=== PATIENT | female | born 1935 | race Caucasian/White ===

== ENCOUNTER 2021-05-16 14:42 | Emergency (ER) | payer MEDICARE, SELFPAY ==
[2021-05-16 15:05] VITALS: BP 174/78; PULSE 94; RESP 16; TEMP 36.9; O2SAT 96; BMI 21.2
--- NOTE | 2021-05-16 15:08 | DI.RAD.S_ITS ---
PROCEDURE: XR CHEST 1V INDICATIONS: suspected sepsis TECHNIQUE: One view of the chest was acquired. COMPARISON: None. FINDINGS: Surgical changes and devices: None. Lungs and pleura: Lungs are clear. No pleural effusions or pneumothorax. Mediastinum: Mediastinal contours appear normal. Heart size is normal. Bones and chest wall: No suspicious bony lesions. Overlying soft tissues appear unremarkable. IMPRESSION: No evidence acute pulmonary process. Dictated by: Jose Daniel Pham M.D. on 05/16/2021 at 15:31 Approved by: Jose Daniel Pham M.D. on 05/16/2021 at 15:32
[2021-05-16 16:05] LABS: Add Manual Diff / Slide Review NO; Basophils Absolute Auto 100 /uL (0-100); Basophils Percent Auto 0.9 % (0-2); Eosinophils Absolute Auto 200 /uL (0-450); Eosinophils Percent Auto 2.2 % (2-4); Hematocrit 41.1 % (36-46); Hemoglobin 13.4 g/dL (12.0-16.0); Lymphocytes Absolute Auto 2300 /uL (1100-4500); Lymphocytes Percent Auto 21.2 % (25-40); Mean Corpuscular HGB Conc 32.7 % (30-36); Mean Corpuscular Hemoglobin 29.7 PG (26-34); Mean Corpuscular Volume 90.7 fL (80-100); Monocytes Absolute Auto 1200 /uL (0-900); Monocytes Percent Auto 10.9 % (3-14); Neutrophils Absolute Auto 7100 /uL (1500-7000); Neutrophils Percent Auto 64.8 % (50-75); Platelet Count 349 X10^3/uL (150-400); Red Blood Cell Count 4.53 X10^6/uL (4.0-5.2); Red Cell Distribution Width 14.8 % (11.6-14.8); White Blood Cell Count 10.9 X10^3/uL (4.5-11.0)
--- NOTE | 2021-05-16 16:05 | ED_ITS ---
HPI - Psych <KARSON Oswald - Last Filed: 05/16/21 16:05> General Chief Complaint: Psychiatric Symptoms Stated Complaint: Concerns of Infection, Hallucinations Time Seen by Provider: 05/16/21 16:04 Source: patient and family Mode of arrival: Ambulatory Related Data Previous Rx's Medication Instructions Recorded nitrofurantoin macrocrystal 100 mg 100 mg PO BID 7 Days #14 cap 05/16/21 capsule Allergies Allergy/AdvReac Type Severity Reaction Status Date / Time Sulfa (Sulfonamide Allergy Mild RASH Unverified 11/04/17 12:22 Antibiotics) [SULFA (SULFONAMIDE ANTIBIOTICS)] Patient History <KARSON Oswald - Last Filed: 05/16/21 16:05> Social History Smoking Status: Never smoker Smoking Status: Never smoker alcohol intake frequency: 0-2 drinks per day Substance Use Type: does not use Exam <KARSON Oswald - Last Filed: 05/16/21 16:05> Initial Vital Signs Initial Vital Signs: Vital Signs Temperature 98.4 F 05/16/21 15:05 Pulse Rate 94 H 05/16/21 15:05 Respiratory Rate 16 05/16/21 15:05 Blood Pressure 174/78 H 05/16/21 15:05 Pulse Oximetry 96 05/16/21 15:05 <Fabian Munoz PA-C - Last Filed: 05/16/21 17:48> Initial Vital Signs Initial Vital Signs: Vital Signs Temperature 98.4 F 05/16/21 15:05 Pulse Rate 94 H 05/16/21 15:05 Respiratory Rate 16 05/16/21 15:05 Blood Pressure 174/78 H 05/16/21 15:05 Pulse Oximetry 96 05/16/21 15:05 Course <KARSON Oswald - Last Filed: 05/16/21 16:05> Orders Ordered: ED Orders 05/16/21 15:08 XR chest 1V Stat EKG-12 Lead Stat RT Consult Eval and Treat Now 05/16/21 15:50 Complete Blood Count AUTO DIFF Stat Comprehensive Metabolic Panel Stat Lactate (Lactic Acid) Stat Lipase Stat Partial Thromboplastin Time Stat Procalcitonin Stat Prothrombin Time INR Stat 05/16/21 16:20 Blood Culture Stat 05/16/21 16:40 Urinalysis and Microscopic Stat Urine Culture Stat Discontinued Medications Sodium Chloride (Normal Saline 0.9%) 1,000 mls @ 1,000 mls/hr IV BOLUS ONE Stop: 05/16/21 16:07 Last Admin: 05/16/21 16:14 Dose: 1,000 mls/hr Documented by: ATAYLOR Vital Signs Vital signs: Vital Signs - 8 hr 05/16/21 15:05 Temperature 98.4 F Pulse Rate 94 H Respiratory Rate 16 Blood Pressure 174/78 H Pulse Oximetry 96 <Fabian Munoz PA-C - Last Filed: 05/16/21 17:48> Orders Ordered: ED Orders 05/16/21 15:08 XR chest 1V Stat EKG-12 Lead Stat RT Consult Eval and Treat Now 05/16/21 15:50 Complete Blood Count AUTO DIFF Stat Comprehensive Metabolic Panel Stat Lactate (Lactic Acid) Stat Lipase Stat Partial Thromboplastin Time Stat Procalcitonin Stat Prothrombin Time INR Stat 05/16/21 16:20 Blood Culture Stat 05/16/21 16:40 Urinalysis and Microscopic Stat Urine Culture Stat Discontinued Medications Sodium Chloride (Normal Saline 0.9%) 1,000 mls @ 1,000 mls/hr IV BOLUS ONE Stop: 05/16/21 16:07 Last Admin: 05/16/21 16:14 Dose: 1,000 mls/hr Documented by: ATAYLOR Vital Signs Vital signs: Vital Signs - 8 hr 05/16/21 15:05 Temperature 98.4 F Pulse Rate 94 H Respiratory Rate 16 Blood Pressure 174/78 H Pulse Oximetry 96 [facility] - Psych <KARSON Oswald - Last Filed: 05/16/21 16:05> Lab Data Result diagrams: 05/16/21 15:50 05/16/21 15:50 Labs: Lab Results 05/16/21 05/16/21 05/16/21 Range/Units 15:50 15:50 15:50 WBC 10.9 (4.5-11.0) X10^3/uL RBC 4.53 (4.0-5.2) X10^6/uL Hgb 13.4 (12.0-16.0) g/dL Hct 41.1 (36-46) % MCV 90.7 (80-100) fL MCH 29.7 (26-34) PG MCHC 32.7 (30-36) % RDW 14.8 (11.6-14.8) % Plt Count 349 (150-400) X10^3/uL Neut % (Auto) 64.8 (50-75) % Lymph % (Auto) 21.2 L (25-40) % [place] % (Auto) 10.9 (3-14) % Eos % (Auto) 2.2 (2-4) % Baso % (Auto) 0.9 (0-2) % Neut # (Auto) 7100 H (0005-4514) /uL Lymph # (Auto) 2300 (8282-6078) /uL [place] # (Auto) 1200 H (0-900) /uL Eos # (Auto) 200 (0-450) /uL Baso # (Auto) 100 (0-100) /uL PT (10.1-12.7) SECONDS INR (0.9-1.3) APTT (26.4-36.2) SECONDS Sodium 138 (137-145) mmol/L Potassium 4.5 (3.4-5.1) mmol/L Chloride 105 (98-107) mmol/L Carbon Dioxide 23 (22-32) mmol/L BUN 14 (7-17) mg/dL Creatinine 0.91 (0.52-1.04) mg/dL Estimated GFR 58.8 L (>60) mL/min BUN/Creatinine Ratio 15.4 (6-22) Glucose 84 (80-110) mg/dL Lactate 0.9 (0.7-2.1) mmol/L Calcium 9.4 (8.4-10.2) mg/dL Total Bilirubin 0.3 (0.2-1.3) mg/dL AST 39 H (14-36) IU/L ALT 28 (<35) IU/L Alkaline Phosphatase 96 (38-126) U/L Total Protein 7.7 (6.3-8.2) g/dL Albumin 4.2 (3.5-5.0) g/dL Globulin 3.5 (1.7-4.1) g/dL Albumin/Globulin Ratio 1.2 (1.0-2.8) Lipase 193 (23-300) U/L Procalcitonin 0.06 (<0.5) ng/mL Urine Color Urine Appearance Urine pH (4.5-8.0) Ur Specific [place] (1.000-1.035) Urine Protein (Negative) Urine Glucose (UA) (Negative) g/dL Urine Ketones (NEGATIVE) Urine Occult Blood (Negative) Urine Nitrate (Negative) Urine Bilirubin (NEGATIVE) Urine Urobilinogen (0.2) E.U./dL Ur Leukocyte Esterase (NEGATIVE) Urine RBC (0-5/HPF) Urine WBC (0-5/HPF) Urine Bacteria (None) Ur Culture Indicated? 05/16/21 05/16/21 Range/Units 15:50 16:40 WBC (4.5-11.0) X10^3/uL RBC (4.0-5.2) X10^6/uL Hgb (12.0-16.0) g/dL Hct (36-46) % MCV (80-100) fL MCH (26-34) PG MCHC (30-36) % RDW (11.6-14.8) % Plt Count (150-400) X10^3/uL Neut % (Auto) (50-75) % Lymph % (Auto) (25-40) % [place] % (Auto) (3-14) % Eos % (Auto) (2-4) % Baso % (Auto) (0-2) % Neut # (Auto) (4365-3593) /uL Lymph # (Auto) (2890-2403) /uL [place] # (Auto) (0-900) /uL Eos # (Auto) (0-450) /uL Baso # (Auto) (0-100) /uL PT 10.8 (10.1-12.7) SECONDS INR 1.0 (0.9-1.3) APTT 30 (26.4-36.2) SECONDS Sodium (137-145) mmol/L Potassium (3.4-5.1) mmol/L Chloride (98-107) mmol/L Carbon Dioxide (22-32) mmol/L BUN (7-17) mg/dL Creatinine (0.52-1.04) mg/dL Estimated GFR (>60) mL/min BUN/Creatinine Ratio (6-22) Glucose (80-110) mg/dL Lactate (0.7-2.1) mmol/L Calcium (8.4-10.2) mg/dL Total Bilirubin (0.2-1.3) mg/dL AST (14-36) IU/L ALT (<35) IU/L Alkaline Phosphatase (38-126) U/L Total Protein (6.3-8.2) g/dL Albumin (3.5-5.0) g/dL Globulin (1.7-4.1) g/dL Albumin/Globulin Ratio (1.0-2.8) Lipase (23-300) U/L Procalcitonin (<0.5) ng/mL Urine Color Yellow Urine Appearance Clear Urine pH 6.0 (4.5-8.0) Ur Specific [place] <=1.005 (1.000-1.035) Urine Protein Negative (Negative) Urine Glucose (UA) Negative (Negative) g/dL Urine Ketones Negative (NEGATIVE) Urine Occult Blood Negative (Negative) Urine Nitrate Negative (Negative) Urine Bilirubin Negative (NEGATIVE) Urine Urobilinogen 0.2 (0.2) E.U./dL Ur Leukocyte Esterase 1+ H (NEGATIVE) Urine RBC 0-1/hpf (0-5/HPF) Urine WBC 5-10/hpf H (0-5/HPF) Urine Bacteria Moderate (10-30) H (None) Ur Culture Indicated? Specimen cultured <Fabian Munoz PA-C - Last Filed: 05/16/21 17:48> Lab Data Labs: Lab Results 05/16/21 05/16/21 05/16/21 Range/Units 15:50 15:50 15:50 WBC 10.9 (4.5-11.0) X10^3/uL RBC 4.53 (4.0-5.2) X10^6/uL Hgb 13.4 (12.0-16.0) g/dL Hct 41.1 (36-46) % MCV 90.7 (80-100) fL MCH 29.7 (26-34) PG MCHC 32.7 (30-36) % RDW 14.8 (11.6-14.8) % Plt Count 349 (150-400) X10^3/uL Neut % (Auto) 64.8 (50-75) % Lymph % (Auto) 21.2 L (25-40) % [place] % (Auto) 10.9 (3-14) % Eos % (Auto) 2.2 (2-4) % Baso % (Auto) 0.9 (0-2) % Neut # (Auto) 7100 H (4441-1948) /uL Lymph # (Auto) 2300 (6730-9430) /uL [place] # (Auto) 1200 H (0-900) /uL Eos # (Auto) 200 (0-450) /uL Baso # (Auto) 100 (0-100) /uL PT (10.1-12.7) SECONDS INR (0.9-1.3) APTT (26.4-36.2) SECONDS Sodium 138 (137-145) mmol/L Potassium 4.5 (3.4-5.1) mmol/L Chloride 105 (98-107) mmol/L Carbon Dioxide 23 (22-32) mmol/L BUN 14 (7-17) mg/dL Creatinine 0.91 (0.52-1.04) mg/dL Estimated GFR 58.8 L (>60) mL/min BUN/Creatinine Ratio 15.4 (6-22) Glucose 84 (80-110) mg/dL Lactate 0.9 (0.7-2.1) mmol/L Calcium 9.4 (8.4-10.2) mg/dL Total Bilirubin 0.3 (0.2-1.3) mg/dL AST 39 H (14-36) IU/L ALT 28 (<35) IU/L Alkaline Phosphatase 96 (38-126) U/L Total Protein 7.7 (6.3-8.2) g/dL Albumin 4.2 (3.5-5.0) g/dL Globulin 3.5 (1.7-4.1) g/dL Albumin/Globulin Ratio 1.2 (1.0-2.8) Lipase 193 (23-300) U/L Procalcitonin 0.06 (<0.5) ng/mL Urine Color Urine Appearance Urine pH (4.5-8.0) Ur Specific [place] (1.000-1.035) Urine Protein (Negative) Urine Glucose (UA) (Negative) g/dL Urine Ketones (NEGATIVE) Urine Occult Blood (Negative) Urine Nitrate (Negative) Urine Bilirubin (NEGATIVE) Urine Urobilinogen (0.2) E.U./dL Ur Leukocyte Esterase (NEGATIVE) Urine RBC (0-5/HPF) Urine WBC (0-5/HPF) Urine Bacteria (None) Ur Culture Indicated? 05/16/21 05/16/21 Range/Units 15:50 16:40 WBC (4.5-11.0) X10^3/uL RBC (4.0-5.2) X10^6/uL Hgb (12.0-16.0) g/dL Hct (36-46) % MCV (80-100) fL MCH (26-34) PG MCHC (30-36) % RDW (11.6-14.8) % Plt Count (150-400) X10^3/uL Neut % (Auto) (50-75) % Lymph % (Auto) (25-40) % [place] % (Auto) (3-14) % Eos % (Auto) (2-4) % Baso % (Auto) (0-2) % Neut # (Auto) (0265-9040) /uL Lymph # (Auto) (5242-3118) /uL [place] # (Auto) (0-900) /uL Eos # (Auto) (0-450) /uL Baso # (Auto) (0-100) /uL PT 10.8 (10.1-12.7) SECONDS INR 1.0 (0.9-1.3) APTT 30 (26.4-36.2) SECONDS Sodium (137-145) mmol/L Potassium (3.4-5.1) mmol/L Chloride (98-107) mmol/L Carbon Dioxide (22-32) mmol/L BUN (7-17) mg/dL Creatinine (0.52-1.04) mg/dL Estimated GFR (>60) mL/min BUN/Creatinine Ratio (6-22) Glucose (80-110) mg/dL Lactate (0.7-2.1) mmol/L Calcium (8.4-10.2) mg/dL Total Bilirubin (0.2-1.3) mg/dL AST (14-36) IU/L ALT (<35) IU/L Alkaline Phosphatase (38-126) U/L Total Protein (6.3-8.2) g/dL Albumin (3.5-5.0) g/dL Globulin (1.7-4.1) g/dL Albumin/Globulin Ratio (1.0-2.8) Lipase (23-300) U/L Procalcitonin (<0.5) ng/mL Urine Color Yellow Urine Appearance Clear Urine pH 6.0 (4.5-8.0) Ur Specific [place] <=1.005 (1.000-1.035) Urine Protein Negative (Negative) Urine Glucose (UA) Negative (Negative) g/dL Urine Ketones Negative (NEGATIVE) Urine Occult Blood Negative (Negative) Urine Nitrate Negative (Negative) Urine Bilirubin Negative (NEGATIVE) Urine Urobilinogen 0.2 (0.2) E.U./dL Ur Leukocyte Esterase 1+ H (NEGATIVE) Urine RBC 0-1/hpf (0-5/HPF) Urine WBC 5-10/hpf H (0-5/HPF) Urine Bacteria Moderate (10-30) H (None) Ur Culture Indicated? Specimen cultured Discharge Plan Departure Patient Disposition: Home Clinical Impression: Acute UTI Instructions: DI for Urinary Tract Infection (UTI) Prescriptions: New nitrofurantoin macrocrystal 100 mg capsule 100 mg PO BID 7 Days Qty: 14 RF: 0 Referrals: Marcial Arellano DO [Primary Care Provider] -
[2021-05-16 16:08] LABS: Prothrombin Time 10.8 SECONDS (10.1-12.7)
[2021-05-16 16:10] LABS: PTT Partial Thromboplastin Tim 30 SECONDS (26.4-36.2)
[2021-05-16 16:11] LABS: Lactate (Lactic Acid) 0.9 mmol/L (0.7-2.1)
[2021-05-16] MEDS: SODIUM CHLORIDE 0.9% 1,000 ML 1000 ML IV (16:14)
[2021-05-16 16:16] LABS: Alanine Aminotransferase 28 IU/L (<35); Albumin 4.2 g/dL (3.5-5.0); Albumin Globulin Ratio 1.2 (1.0-2.8); Alkaline Phosphatase 96 U/L (38-126); Aspartate Aminotransferase 39 IU/L (14-36); BUN Creatinine Ratio 15.4 (6-22); Bilirubin Total 0.3 mg/dL (0.2-1.3); Blood Urea Nitrogen 14 mg/dL (7-17); Calcium 9.4 mg/dL (8.4-10.2); Carbon Dioxide 23 mmol/L (22-32); Chloride 105 mmol/L (98-107); Estimated Glomerular Filt Rate 58.8 mL/min (>60); Globulin 3.5 g/dL (1.7-4.1); Glucose 84 mg/dL (80-110); HEMOLYSIS < 15 (0-50); Lipase 193 U/L (23-300); Potassium 4.5 mmol/L (3.4-5.1); Sodium 138 mmol/L (137-145); Total Protein 7.7 g/dL (6.3-8.2)
[2021-05-16 16:33] LABS: Procalcitonin 0.06 ng/mL (<0.5)
[2021-05-16 16:54] LABS: Appearance Urine UA CLEAR; Bilirubin Urine UA NEGATIVE (NEGATIVE); Color Urine UA YELLOW; Glucose Urine UA NEGATIVE (Negative); Ketones Urine UA NEGATIVE (NEGATIVE); Leukocyte Esterase Urine UA 1+ (NEGATIVE); Nitrite Urine UA NEGATIVE (Negative); Occult Blood Urine UA NEGATIVE (Negative); Protein Urine UA NEGATIVE (Negative); Specific Gravity Urine UA <=1.005 (1.000-1.035); Urobilinogen Urine UA 0.2 E.U./dL (0.2)
--- NOTE | 2021-05-16 17:07 | ED.PSYCH ---
HPI - Psych <Fabian Munoz PA-C - Last Filed: 05/16/21 17:58> General Chief Complaint: Psychiatric Symptoms Stated Complaint: Concerns of Infection, Hallucinations Time Seen by Provider: 05/16/21 16:04 Source: patient and family Mode of arrival: Ambulatory History of Present Illness HPI Narrative: Patient presents today with her grandson for evaluation of 2 days of visual hallucinations. Patient states that at night she has seen people in her bedroom and she also notes that she has seen other things in her room a such flags. Her grandson notes that the patient was seen on 05/10 for changes in mentation. However, lab work drawn during that time returned benign with no signs of infection. Patient has denied any associated signs or symptoms, including fever, chills, nausea, vomiting, diarrhea, abdominal pain, dysuria, or auditory hallucinations. Patient denies beginning any new medications recently. No other concerns noted at this time. Related Data Previous Rx's Medication Instructions Recorded nitrofurantoin macrocrystal 100 mg 100 mg PO BID 7 Days #14 cap 05/16/21 capsule Allergies Allergy/AdvReac Type Severity Reaction Status Date / Time Sulfa (Sulfonamide Allergy Mild RASH Unverified 11/04/17 12:22 Antibiotics) [SULFA (SULFONAMIDE ANTIBIOTICS)] Review of Systems <Fabian Munoz PA-C - Last Filed: 05/16/21 17:58> Constitutional Constitutional: Denies chills, Denies fatigue, Denies fever(s), Denies lethargy and Denies weakness Cardiovascular Cardiovascular: Denies chest pain, Denies irregular heart rhythm, Denies lightheadedness, Denies palpitations, Denies dyspnea, Denies dyspnea on exertion and Denies orthopnea Respiratory Respiratory: Denies cough, Denies dyspnea, Denies dyspnea on exertion and Denies wheezing Gastrointestinal Gastrointestinal: Denies abdominal pain, Denies change in bowel habits, Denies diarrhea, Denies nausea and Denies vomiting Neurologic Neurologic: Reports behavioral changes and Denies weakness Psychiatric Psychiatric: Denies anxiety, Reports behavioral changes, Denies depression, Denies homicidal ideation and Denies suicidal ideation Endocrine Endocrine: Denies fatigue, Denies flushing and Denies palpitations Allergic/Immunologic Allergic/Immunologic: Denies wheezing Patient History <Fabian Munoz PA-C - Last Filed: 05/16/21 17:58> Social History Smoking Status: Never smoker Smoking Status: Never smoker alcohol intake frequency: 0-2 drinks per day Substance Use Type: does not use Exam <Fabian Munoz PA-C - Last Filed: 05/16/21 17:58> Narrative Exam Narrative: GENERAL: 85 year old patient appears stated age. Well-developed patient, in mild distress. HEAD: Atraumatic. Normocephalic. EYES: Pupils equal round and reactive. Extraocular motions intact. No scleral icterus. No injection or drainage. ENT: Nose without bleeding, purulent drainage. Throat without erythema, tonsillar hypertrophy or exudate. Airway patent. NECK: Trachea midline. Non tender CARDIOVASCULAR: Regular rate and rhythm without murmurs, gallops, or rubs. RESPIRATORY: Clear to auscultation. Breath sounds equal bilaterally. No wheezes, rales, or rhonchi. GASTROINTESTINAL: Abdomen soft, non-tender, nondistended. EXTREMITIES: No edema or joint tenderness. Superficial skin abrasion noted on the lateral aspect of the left arm with surrounding erythema, no streaking. BACK: Nontender without deformity or crepitance. No flank tenderness. NEURO: AOx3. SKIN: No rash or erythema of visible areas Initial Vital Signs Initial Vital Signs: Vital Signs Temperature 98.4 F 05/16/21 15:05 Pulse Rate 94 H 05/16/21 15:05 Respiratory Rate 16 05/16/21 15:05 Blood Pressure 174/78 H 05/16/21 15:05 Pulse Oximetry 96 05/16/21 15:05 <Marcial Trent MD - Last Filed: 05/21/21 22:39> Initial Vital Signs Initial Vital Signs: Vital Signs Temperature 98.4 F 05/16/21 15:05 Pulse Rate 94 H 05/16/21 15:05 Respiratory Rate 16 05/16/21 15:05 Blood Pressure 174/78 H 05/16/21 15:05 Pulse Oximetry 96 05/16/21 15:05 Course <Fabian Munoz PA-C - Last Filed: 05/16/21 17:58> Course Course Narrative: Patient presents today with her grandson for evaluation of 2 days of visual hallucination. CBC, procalcitonin, Chem 7, urinalysis, chest x-ray, ECG, lipase, lactate tingling, PT/PTT have been ordered. Orders Ordered: Discontinued Medications Sodium Chloride (Normal Saline 0.9%) 1,000 mls @ 1,000 mls/hr IV BOLUS ONE Stop: 05/16/21 16:07 Last Infusion: 05/16/21 17:37 Dose: 0 mls/hr Documented by: Admin: 05/16/21 16:14 Dose: 1,000 mls/hr Documented by: MATIASYLOR Nitrofurantoin Macrocrystals (Nitrofurantoin Er 100 Mg Capsule) 100 mg PO NOW ONE Stop: 05/16/21 17:49 Last Admin: 05/16/21 17:55 Dose: 100 mg Documented by: NEHEMIAH Vital Signs Vital signs: Vital Signs - 8 hr 05/16/21 15:05 Temperature 98.4 F Pulse Rate 94 H Respiratory Rate 16 Blood Pressure 174/78 H Pulse Oximetry 96 <Marcial Trent MD - Last Filed: 05/21/21 22:39> Orders Ordered: Discontinued Medications Sodium Chloride (Normal Saline 0.9%) 1,000 mls @ 1,000 mls/hr IV BOLUS ONE Stop: 05/16/21 16:07 Last Infusion: 05/16/21 17:37 Dose: 0 mls/hr Documented by: Admin: 05/16/21 16:14 Dose: 1,000 mls/hr Documented by: NEHEMIAH Nitrofurantoin Macrocrystals (Nitrofurantoin Er 100 Mg Capsule) 100 mg PO NOW ONE Stop: 05/16/21 17:49 Last Admin: 05/16/21 17:55 Dose: 100 mg Documented by: NEHEMIAH Vital Signs Vital signs: Vital Signs - 8 hr 05/16/21 15:05 Temperature 98.4 F Pulse Rate 94 H Respiratory Rate 16 Blood Pressure 174/78 H Pulse Oximetry 96 MDM - Psych <Fabian Munoz PA-C - Last Filed: 05/16/21 17:58> Lab Data Result diagrams: 05/16/21 15:50 05/16/21 15:50 Labs: Lab Results 05/16/21 05/16/21 05/16/21 Range/Units 15:50 15:50 15:50 WBC 10.9 (4.5-11.0) X10^3/uL RBC 4.53 (4.0-5.2) X10^6/uL Hgb 13.4 (12.0-16.0) g/dL Hct 41.1 (36-46) % MCV 90.7 (80-100) fL MCH 29.7 (26-34) PG MCHC 32.7 (30-36) % RDW 14.8 (11.6-14.8) % Plt Count 349 (150-400) X10^3/uL Neut % (Auto) 64.8 (50-75) % Lymph % (Auto) 21.2 L (25-40) % [place] % (Auto) 10.9 (3-14) % Eos % (Auto) 2.2 (2-4) % Baso % (Auto) 0.9 (0-2) % Neut # (Auto) 7100 H (0620-2384) /uL Lymph # (Auto) 2300 (6716-0284) /uL [place] # (Auto) 1200 H (0-900) /uL Eos # (Auto) 200 (0-450) /uL Baso # (Auto) 100 (0-100) /uL PT (10.1-12.7) SECONDS INR (0.9-1.3) APTT (26.4-36.2) SECONDS Sodium 138 (137-145) mmol/L Potassium 4.5 (3.4-5.1) mmol/L Chloride 105 (98-107) mmol/L Carbon Dioxide 23 (22-32) mmol/L BUN 14 (7-17) mg/dL Creatinine 0.91 (0.52-1.04) mg/dL Estimated GFR 58.8 L (>60) mL/min BUN/Creatinine Ratio 15.4 (6-22) Glucose 84 (80-110) mg/dL Lactate 0.9 (0.7-2.1) mmol/L Calcium 9.4 (8.4-10.2) mg/dL Total Bilirubin 0.3 (0.2-1.3) mg/dL AST 39 H (14-36) IU/L ALT 28 (<35) IU/L Alkaline Phosphatase 96 (38-126) U/L Total Protein 7.7 (6.3-8.2) g/dL Albumin 4.2 (3.5-5.0) g/dL Globulin 3.5 (1.7-4.1) g/dL Albumin/Globulin Ratio 1.2 (1.0-2.8) Lipase 193 (23-300) U/L Procalcitonin 0.06 (<0.5) ng/mL Urine Color Urine Appearance Urine pH (4.5-8.0) Ur Specific [place] (1.000-1.035) Urine Protein (Negative) Urine Glucose (UA) (Negative) g/dL Urine Ketones (NEGATIVE) Urine Occult Blood (Negative) Urine Nitrate (Negative) Urine Bilirubin (NEGATIVE) Urine Urobilinogen (0.2) E.U./dL Ur Leukocyte Esterase (NEGATIVE) Urine RBC (0-5/HPF) Urine WBC (0-5/HPF) Urine Bacteria (None) Ur Culture Indicated? 05/16/21 05/16/21 Range/Units 15:50 16:40 WBC (4.5-11.0) X10^3/uL RBC (4.0-5.2) X10^6/uL Hgb (12.0-16.0) g/dL Hct (36-46) % MCV (80-100) fL MCH (26-34) PG MCHC (30-36) % RDW (11.6-14.8) % Plt Count (150-400) X10^3/uL Neut % (Auto) (50-75) % Lymph % (Auto) (25-40) % [place] % (Auto) (3-14) % Eos % (Auto) (2-4) % Baso % (Auto) (0-2) % Neut # (Auto) (7799-9065) /uL Lymph # (Auto) (4084-3780) /uL [place] # (Auto) (0-900) /uL Eos # (Auto) (0-450) /uL Baso # (Auto) (0-100) /uL PT 10.8 (10.1-12.7) SECONDS INR 1.0 (0.9-1.3) APTT 30 (26.4-36.2) SECONDS Sodium (137-145) mmol/L Potassium (3.4-5.1) mmol/L Chloride (98-107) mmol/L Carbon Dioxide (22-32) mmol/L BUN (7-17) mg/dL Creatinine (0.52-1.04) mg/dL Estimated GFR (>60) mL/min BUN/Creatinine Ratio (6-22) Glucose (80-110) mg/dL Lactate (0.7-2.1) mmol/L Calcium (8.4-10.2) mg/dL Total Bilirubin (0.2-1.3) mg/dL AST (14-36) IU/L ALT (<35) IU/L Alkaline Phosphatase (38-126) U/L Total Protein (6.3-8.2) g/dL Albumin (3.5-5.0) g/dL Globulin (1.7-4.1) g/dL Albumin/Globulin Ratio (1.0-2.8) Lipase (23-300) U/L Procalcitonin (<0.5) ng/mL Urine Color Yellow Urine Appearance Clear Urine pH 6.0 (4.5-8.0) Ur Specific [place] <=1.005 (1.000-1.035) Urine Protein Negative (Negative) Urine Glucose (UA) Negative (Negative) g/dL Urine Ketones Negative (NEGATIVE) Urine Occult Blood Negative (Negative) Urine Nitrate Negative (Negative) Urine Bilirubin Negative (NEGATIVE) Urine Urobilinogen 0.2 (0.2) E.U./dL Ur Leukocyte Esterase 1+ H (NEGATIVE) Urine RBC 0-1/hpf (0-5/HPF) Urine WBC 5-10/hpf H (0-5/HPF) Urine Bacteria Moderate (10-30) H (None) Ur Culture Indicated? Specimen cultured Imaging Data Chest x-ray: Radiologist's Impression: PROCEDURE:? XR CHEST 1V ? INDICATIONS:? suspected sepsis ? TECHNIQUE:? One view of the chest was acquired.? ? COMPARISON:? None. ? FINDINGS:? ? Surgical changes and devices:? None.? ? Lungs and pleura:? Lungs are clear.? No pleural effusions or pneumothorax.? ? Mediastinum:? Mediastinal contours appear normal.? Heart size is normal.? ? Bones and chest wall:? No suspicious bony lesions.? Overlying soft tissues appear unremarkable.? ? IMPRESSION:? No evidence acute pulmonary process. MDM Narrative Medical decision making narrative: Patient presents today with her grandson for evaluation of 2 days of visual hallucination. To consider urinary tract infection versus pneumonia versus superficial skin infection versus substance induced psychosis. Physical examination is reassuring, as the superficial skin abrasion is free of swelling and excessive warmth and her lungs are clear to auscultation bilaterally. Additionally, the patient has not taken any new medications recently which makes substance induced psychosis less likely. <Marcial Trent MD - Last Filed: 05/21/21 22:39> Lab Data Labs: Lab Results 05/16/21 05/16/21 05/16/21 Range/Units 15:50 15:50 15:50 WBC 10.9 (4.5-11.0) X10^3/uL RBC 4.53 (4.0-5.2) X10^6/uL Hgb 13.4 (12.0-16.0) g/dL Hct 41.1 (36-46) % MCV 90.7 (80-100) fL MCH 29.7 (26-34) PG MCHC 32.7 (30-36) % RDW 14.8 (11.6-14.8) % Plt Count 349 (150-400) X10^3/uL Neut % (Auto) 64.8 (50-75) % Lymph % (Auto) 21.2 L (25-40) % [place] % (Auto) 10.9 (3-14) % Eos % (Auto) 2.2 (2-4) % Baso % (Auto) 0.9 (0-2) % Neut # (Auto) 7100 H (5963-5009) /uL Lymph # (Auto) 2300 (3699-0098) /uL [place] # (Auto) 1200 H (0-900) /uL Eos # (Auto) 200 (0-450) /uL Baso # (Auto) 100 (0-100) /uL PT (10.1-12.7) SECONDS INR (0.9-1.3) APTT (26.4-36.2) SECONDS Sodium 138 (137-145) mmol/L Potassium 4.5 (3.4-5.1) mmol/L Chloride 105 (98-107) mmol/L Carbon Dioxide 23 (22-32) mmol/L BUN 14 (7-17) mg/dL Creatinine 0.91 (0.52-1.04) mg/dL Estimated GFR 58.8 L (>60) mL/min BUN/Creatinine Ratio 15.4 (6-22) Glucose 84 (80-110) mg/dL Lactate 0.9 (0.7-2.1) mmol/L Calcium 9.4 (8.4-10.2) mg/dL Total Bilirubin 0.3 (0.2-1.3) mg/dL AST 39 H (14-36) IU/L ALT 28 (<35) IU/L Alkaline Phosphatase 96 (38-126) U/L Total Protein 7.7 (6.3-8.2) g/dL Albumin 4.2 (3.5-5.0) g/dL Globulin 3.5 (1.7-4.1) g/dL Albumin/Globulin Ratio 1.2 (1.0-2.8) Lipase 193 (23-300) U/L Procalcitonin 0.06 (<0.5) ng/mL Urine Color Urine Appearance Urine pH (4.5-8.0) Ur Specific [place] (1.000-1.035) Urine Protein (Negative) Urine Glucose (UA) (Negative) g/dL Urine Ketones (NEGATIVE) Urine Occult Blood (Negative) Urine Nitrate (Negative) Urine Bilirubin (NEGATIVE) Urine Urobilinogen (0.2) E.U./dL Ur Leukocyte Esterase (NEGATIVE) Urine RBC (0-5/HPF) Urine WBC (0-5/HPF) Urine Bacteria (None) Ur Culture Indicated? 05/16/21 05/16/21 Range/Units 15:50 16:40 WBC (4.5-11.0) X10^3/uL RBC (4.0-5.2) X10^6/uL Hgb (12.0-16.0) g/dL Hct (36-46) % MCV (80-100) fL MCH (26-34) PG MCHC (30-36) % RDW (11.6-14.8) % Plt Count (150-400) X10^3/uL Neut % (Auto) (50-75) % Lymph % (Auto) (25-40) % [place] % (Auto) (3-14) % Eos % (Auto) (2-4) % Baso % (Auto) (0-2) % Neut # (Auto) (5947-1482) /uL Lymph # (Auto) (3769-2540) /uL [place] # (Auto) (0-900) /uL Eos # (Auto) (0-450) /uL Baso # (Auto) (0-100) /uL PT 10.8 (10.1-12.7) SECONDS INR 1.0 (0.9-1.3) APTT 30 (26.4-36.2) SECONDS Sodium (137-145) mmol/L Potassium (3.4-5.1) mmol/L Chloride (98-107) mmol/L Carbon Dioxide (22-32) mmol/L BUN (7-17) mg/dL Creatinine (0.52-1.04) mg/dL Estimated GFR (>60) mL/min BUN/Creatinine Ratio (6-22) Glucose (80-110) mg/dL Lactate (0.7-2.1) mmol/L Calcium (8.4-10.2) mg/dL Total Bilirubin (0.2-1.3) mg/dL AST (14-36) IU/L ALT (<35) IU/L Alkaline Phosphatase (38-126) U/L Total Protein (6.3-8.2) g/dL Albumin (3.5-5.0) g/dL Globulin (1.7-4.1) g/dL Albumin/Globulin Ratio (1.0-2.8) Lipase (23-300) U/L Procalcitonin (<0.5) ng/mL Urine Color Yellow Urine Appearance Clear Urine pH 6.0 (4.5-8.0) Ur Specific [place] <=1.005 (1.000-1.035) Urine Protein Negative (Negative) Urine Glucose (UA) Negative (Negative) g/dL Urine Ketones Negative (NEGATIVE) Urine Occult Blood Negative (Negative) Urine Nitrate Negative (Negative) Urine Bilirubin Negative (NEGATIVE) Urine Urobilinogen 0.2 (0.2) E.U./dL Ur Leukocyte Esterase 1+ H (NEGATIVE) Urine RBC 0-1/hpf (0-5/HPF) Urine WBC 5-10/hpf H (0-5/HPF) Urine Bacteria Moderate (10-30) H (None) Ur Culture Indicated? Specimen cultured Discharge Plan Departure Patient Disposition: Home Clinical Impression: Acute UTI Instructions: DI for Urinary Tract Infection (UTI) Activity Restrictions/Additional Instructions: *You have been diagnosed with an acute UTI. Prescription for nitrofurantoin has been sent to your pharmacy. Please complete the full antibiotic course. Follow up with primary care doctor within 48 hours following discharge. Please return to the emergency department if you experience increased pain with urination, fever, chills, worsening visual hallucinations. *What to do: *Please continue to take your regular medications as directed. [X] New medication prescriptions sent to your pharmacy: Nitrofurantoin - [facility] [ ] New medication written as a paper prescription [ ] No new medications given *Please follow up with your primary care provider in 2-3 days, call for an appointment. Let them know you were seen in the Emergency Department and that we ask that you be seen in follow up. We will electronically transmit a record of today's note if your PCP is in our system *If you do not have a primary care provider please contact the [facility] Resource line at [phone]. They will ask some questions about your medical history and help get you set up with a doctor in the community. *Return to Emergency Department if you should have any new, worsening or concerning symptoms, such as fever greater than 101 F, shaking chills, worsening pain, persistent vomiting or other bothersome symptoms. Prescriptions: New nitrofurantoin macrocrystal 100 mg capsule 100 mg PO BID 7 Days Qty: 14 RF: 0 Referrals: Marcial Arellano DO [Primary Care Provider] - <Marcial Trent MD - Last Filed: 05/21/21 22:39> [facility]ign [facility] Attestation: I was immediately available in the department for consultation. This documentation has been reviewed and I agree with assessment and plan. Supervised by Marcial Trent MD
[2021-05-16 17:17] LABS: Bacteria Urine Moderate (10-30); Culture Indicated Urine Specimen Cultured; RBC Urine 0-1/HPF (0-5/HPF); WBC Urine 5-10/HPF (0-5/HPF)
[2021-05-16] MEDS: NITROFURANTOIN ER 100 MG CAPSULE PO (17:55)
[2021-05-16 18:05] VITALS: BP 199/80; PULSE 86; RESP 16; O2SAT 99
== END 2021-05-16 18:08 | disposition home or self-care (01) ==
PROVIDERS: Emergency Medicine; Nurse Practitioner Critical Care Medicine; Emergency Provider Physician Assistant; Family Provider Internal Medicine; PCP Family Medicine
DX: N39.0 Urinary tract infection, site not specified (principal); R44.3 Hallucinations, unspecified; R03.0 Elevated blood-pressure reading, without diagnosis of hypertension
CPT/HCPCS: 36415; 71045; 80053; 81001; 83605; 83690; 84145; 85025; 85610; 85730; 87040; 87077; 87086; 87186; 93005; 93010; 96360; 99284; 99285

== ENCOUNTER 2022-08-18 09:44 | Inpatient (IN) | payer MEDICARE, SELFPAY ==
[2022-08-18 10:03] VITALS: BP 159/72; PULSE 104; RESP 16; TEMP 37; O2SAT 95
--- NOTE | 2022-08-18 10:05 | DI.RAD.S_ITS ---
PROCEDURE: XR CHEST 1V INDICATIONS: suspected sepsis TECHNIQUE: One view of the chest was acquired. COMPARISON: [facility], CR, XR CHEST 1V, 05/16/2021, 15:12. FINDINGS: Surgical changes and devices: None. Lungs and pleura: Lungs are clear. No pleural effusions or pneumothorax. Mediastinum: Mediastinal contours appear normal. Heart size is normal. Bones and chest wall: No suspicious bony lesions. Overlying soft tissues appear unremarkable. IMPRESSION: No evidence acute pulmonary process. Dictated by: Jose Daniel Pham M.D. on 08/18/2022 at 10:46 Approved by: Jose Daniel Pham M.D. on 08/18/2022 at 10:48
--- NOTE | 2022-08-18 10:10 | ED.AMS ---
HPI - Altered Mental Status General Chief Complaint: Altered Mental Status Stated Complaint: confusion,hallucination,T-14 Time Seen by Provider: 08/18/22 10:08 Mode of arrival: Family Vehicle History of Present Illness HPI narrative: Patient is a 87-year-old female history of CVA hypertension TIAs frequent UTIs presenting today with hallucinations. Apparently last night she saw many people in her house she called 911 no one was there. She really has no pain. She is very weak difficulty ambulating. Here now with daughter who is a nurse. Previously she had a UTI in April 2021 with similar symptoms. She denies any abdominal pain nausea vomiting chest pain cough shortness of breath. Related Data Home Medications Medication Instructions Recorded Confirmed aspirin 81 mg tablet,delayed 81 mg PO DAILY 08/18/22 08/18/22 release (Adult Low Dose Aspirin) atorvastatin 20 mg tablet 20 mg PO DAILY 08/18/22 08/18/22 cholecalciferol (vitamin D3) 10 10 mcg PO DAILY 08/18/22 08/18/22 mcg (400 unit) tablet escitalopram oxalate 10 mg tablet 10 mg PO DAILY 08/18/22 08/18/22 levothyroxine 50 mcg tablet 50 mcg PO DAILY 08/18/22 08/18/22 lisinopril 20 mg tablet 10 mg PO DAILY 08/18/22 08/18/22 temazepam 7.5 mg capsule 7.5 mg PO BEDTIME 08/18/22 08/18/22 verapamil 120 mg tablet 120 mg PO DAILY 08/18/22 08/18/22 Allergies Allergy/AdvReac Type Severity Reaction Status Date / Time Sulfa (Sulfonamide Allergy Mild RASH Verified 08/18/22 10:25 Antibiotics) [SULFA (SULFONAMIDE ANTIBIOTICS)] Review of Systems Review of Systems ROS Unobtainable: All systems reviewed & are unremarkable except as noted in HPI and below Patient History Social History household members: none Smoking Status: Former smoker alcohol intake: never Smoking Status: Never smoker alcohol intake frequency: 0-2 drinks per day Substance Use Type: does not use Exam Initial Vital Signs Initial Vital Signs: Vital Signs Temperature 98.6 F 08/18/22 10:03 Pulse Rate 104 H 08/18/22 10:03 Respiratory Rate 16 08/18/22 10:03 Blood Pressure 159/72 H 08/18/22 10:03 Pulse Oximetry 95 08/18/22 10:03 Oxygen Delivery Method 08/18/22 10:03 GENERAL: Alert week 87-year-old female actually appears younger than stated age and in no acute distress. HEENT: Head atraumatic,EOMI, pupils reactive, face symmetric, moist mucous membranes CARDIOVASCULAR: Regular rate and rhythm without murmurs, rubs or gallops. RESPIRATORY: Breath sounds equal bilaterally, no wheezes rales or rhonchi. ABDOMEN: Soft, nontender. Normoactive bowel sounds all 4 quadrants. No guarding or rebound. EXTREMITIES: Normal range of motion, no clubbing or edema. Neurovascularly intact NEUROLOGICAL: Alert and oriented x2. Bilateral lower extremity weakness sports physical therapist strength equal and strong bilaterally SKIN: Warm, dry, no laceration, no petechiae, no rashes or lesions. Course Orders Ordered: ED Orders 08/18/22 10:00 Complete Blood Count AUTO DIFF Stat Comprehensive Metabolic Panel Stat Lactate (Lactic Acid) Stat Lipase Stat Partial Thromboplastin Time Stat Procalcitonin Stat Prothrombin Time INR Stat 08/18/22 10:05 XR chest 1V Stat EKG-12 Lead Stat RT Consult Eval and Treat NOW 08/18/22 10:15 COVID19 -Nasal RAPID/Pre-Proc Stat Urinalysis and Microscopic Stat Urine Culture Stat 08/18/22 10:33 CT head/brain wo con Stat 08/18/22 11:43 Blood Culture Stat Amoxicillin/Clavulanate Potassium (Amoxicillin/Clav 500/125 Mg) 1 tab PO TID [facility] Stop: 09/02/22 08:59 Aspirin (Aspirin Ec 81 Mg Tablet) 81 mg PO DAILY [facility] Atorvastatin Calcium (Atorvastatin 20 Mg Tablet) 20 mg PO BEDTIME [facility] Escitalopram Oxalate (Escitalopram 10 Mg Tablet) 10 mg PO DAILY [facility] Ceftriaxone Sodium 1,000 mg/ (Sodium Chloride) 100 mls @ 200 mls/hr IV Q24H [facility] Stop: 08/23/22 18:00 Levothyroxine Sodium (Levothyroxine 50 Mcg Tablet) 50 mcg PO DAILY@0600 [facility] Lisinopril (Lisinopril 10 Mg Tablet) 10 mg PO DAILY [facility] Ondansetron HCl (Ondansetron 4 Mg/2 Ml Inj) 4 mg IV NOW PRN PRN Reason: Nausea And Vomiting Last Admin: 08/18/22 10:26 Dose: 4 mg Documented By: DARIEN Ondansetron HCl (Ondansetron 4 Mg Odt) 4 mg SL NOW PRN PRN Reason: Nausea And Vomiting Prednisone (Prednisone 20 Mg Tablet) 20 mg PO DAILY [facility] Stop: 08/24/22 08:59 Temazepam (Temazepam 15 Mg Capsule) 15 mg PO BEDTIME [facility] Verapamil HCl (Verapamil Sr 120 Mg Tablet) 120 mg PO DAILY [facility] Vitamin D (Cholecalciferol (Vitamin D3) 1,000 Unit Tablet) 1,000 unit PO DAILY [facility] Discontinued Medications Sodium Chloride (Normal Saline 0.9%) 1,000 mls @ 1,000 mls/hr IV BOLUS ONE Stop: 08/18/22 11:04 Last Infusion: 08/18/22 11:54 Dose: 0 mls/hr Documented By: Admin: 08/18/22 10:27 Dose: 1,000 mls/hr Documented By: DARIEN Ceftriaxone Sodium 1,000 mg/ (Sodium Chloride) 100 mls @ 200 mls/hr IV NOW ONE Stop: 08/18/22 11:30 Last Infusion: 08/18/22 12:59 Dose: 0 mls/hr Documented By: Admin: 08/18/22 12:18 Dose: 200 mls/hr Documented By: YOCASTA Ceftriaxone Sodium 1,000 mg/ (Sodium Chloride) 100 mls @ 200 mls/hr IV Q24H [facility] Vital Signs Vital signs: Vital Signs - 8 hr 08/18/22 11:44 Pulse Rate 78 Pulse Oximetry 95 MDM - Altered Mental Status Lab Data Result diagrams: 08/18/22 10:00 08/18/22 10:00 Labs: Lab Results 08/18/22 08/18/22 08/18/22 Range/Units 10:00 10:00 10:00 WBC 8.5 (4.5-11.0) X10^3/uL RBC 4.53 (4.0-5.2) X10^6/uL Hgb 13.9 (12.0-16.0) g/dL Hct 41.2 (36-46) % MCV 91.1 (80-100) fL MCH 30.6 (26-34) PG MCHC 33.6 (30-36) % RDW 14.2 (11.6-14.8) % Plt Count 278 (150-400) X10^3/uL Neut % (Auto) 73.2 (50-75) % Lymph % (Auto) 16.1 L (25-40) % [place] % (Auto) 8.4 (3-14) % Eos % (Auto) 1.5 L (2-4) % Baso % (Auto) 0.8 (0-2) % Neut # (Auto) 6200 (0158-6105) /uL Lymph # (Auto) 1400 (5398-2046) /uL [place] # (Auto) 700 (0-900) /uL Eos # (Auto) 100 (0-450) /uL Baso # (Auto) 100 (0-100) /uL PT 11.4 (10.1-12.7) SECONDS INR 1.0 (0.9-1.3) APTT 29 (26-36) SECONDS Sodium 138 (137-145) mmol/L Potassium 4.2 (3.4-5.1) mmol/L Chloride 105 (98-107) mmol/L Carbon Dioxide 21 L (22-32) mmol/L BUN 19 H (7-17) mg/dL Creatinine 0.93 (0.52-1.04) mg/dL Estimated GFR 59 L (>60) mL/min BUN/Creatinine Ratio 20.4 (6-22) Glucose 184 H (80-110) mg/dL Lactate (0.7-2.1) mmol/L Calcium 9.3 (8.4-10.2) mg/dL Total Bilirubin 0.5 (0.2-1.3) mg/dL AST 35 (14-36) IU/L ALT 29 (<35) IU/L Alkaline Phosphatase 78 (38-126) U/L Total Creatine Kinase (30-135) U/L CK-MB (CK-2) CK-MB (CK-2) Rel Index Troponin I (0.01-0.034) ng/mL Total Protein 8.0 (6.3-8.2) g/dL Albumin 4.1 (3.5-5.0) g/dL Globulin 3.9 (1.7-4.1) g/dL Albumin/Globulin Ratio 1.1 (1.0-2.8) Lipase 238 (23-300) U/L Procalcitonin 0.08 (<0.5) ng/mL Urine Color Urine Appearance Urine pH (4.5-8.0) Ur Specific [place] (1.000-1.035) Urine Protein (Negative) Urine Glucose (UA) (Negative) g/dL Urine Ketones (NEGATIVE) Urine Occult Blood (Negative) Urine Nitrate (Negative) Urine Bilirubin (NEGATIVE) Urine Urobilinogen (0.2) E.U./dL Ur Leukocyte Esterase (NEGATIVE) Urine RBC (0-5/HPF) Urine WBC (0-5/HPF) Ur Squamous Epith Cells (0-5/HPF) Urine Bacteria (None) Ur Culture Indicated? SARS-CoV-2 (PCR) (Negative) 08/18/22 08/18/22 08/18/22 Range/Units 10:00 10:05 10:15 WBC (4.5-11.0) X10^3/uL RBC (4.0-5.2) X10^6/uL Hgb (12.0-16.0) g/dL Hct (36-46) % MCV (80-100) fL MCH (26-34) PG MCHC (30-36) % RDW (11.6-14.8) % Plt Count (150-400) X10^3/uL Neut % (Auto) (50-75) % Lymph % (Auto) (25-40) % [place] % (Auto) (3-14) % Eos % (Auto) (2-4) % Baso % (Auto) (0-2) % Neut # (Auto) (2374-4318) /uL Lymph # (Auto) (6026-3577) /uL [place] # (Auto) (0-900) /uL Eos # (Auto) (0-450) /uL Baso # (Auto) (0-100) /uL PT (10.1-12.7) SECONDS INR (0.9-1.3) APTT (26-36) SECONDS Sodium (137-145) mmol/L Potassium (3.4-5.1) mmol/L Chloride (98-107) mmol/L Carbon Dioxide (22-32) mmol/L BUN (7-17) mg/dL Creatinine (0.52-1.04) mg/dL Estimated GFR (>60) mL/min BUN/Creatinine Ratio (6-22) Glucose (80-110) mg/dL Lactate 3.0 H (0.7-2.1) mmol/L Calcium (8.4-10.2) mg/dL Total Bilirubin (0.2-1.3) mg/dL AST (14-36) IU/L ALT (<35) IU/L Alkaline Phosphatase (38-126) U/L Total Creatine Kinase 70 (30-135) U/L CK-MB (CK-2) TNP CK-MB (CK-2) Rel Index TNP Troponin I < 0.012 (0.01-0.034) ng/mL Total Protein (6.3-8.2) g/dL Albumin (3.5-5.0) g/dL Globulin (1.7-4.1) g/dL Albumin/Globulin Ratio (1.0-2.8) Lipase (23-300) U/L Procalcitonin (<0.5) ng/mL Urine Color Urine Appearance Urine pH (4.5-8.0) Ur Specific [place] (1.000-1.035) Urine Protein (Negative) Urine Glucose (UA) (Negative) g/dL Urine Ketones (NEGATIVE) Urine Occult Blood (Negative) Urine Nitrate (Negative) Urine Bilirubin (NEGATIVE) Urine Urobilinogen (0.2) E.U./dL Ur Leukocyte Esterase (NEGATIVE) Urine RBC (0-5/HPF) Urine WBC (0-5/HPF) Ur Squamous Epith Cells (0-5/HPF) Urine Bacteria (None) Ur Culture Indicated? SARS-CoV-2 (PCR) Negative (Negative) 08/18/22 Range/Units 10:15 WBC (4.5-11.0) X10^3/uL RBC (4.0-5.2) X10^6/uL Hgb (12.0-16.0) g/dL Hct (36-46) % MCV (80-100) fL MCH (26-34) PG MCHC (30-36) % RDW (11.6-14.8) % Plt Count (150-400) X10^3/uL Neut % (Auto) (50-75) % Lymph % (Auto) (25-40) % [place] % (Auto) (3-14) % Eos % (Auto) (2-4) % Baso % (Auto) (0-2) % Neut # (Auto) (0766-8002) /uL Lymph # (Auto) (5193-5861) /uL [place] # (Auto) (0-900) /uL Eos # (Auto) (0-450) /uL Baso # (Auto) (0-100) /uL PT (10.1-12.7) SECONDS INR (0.9-1.3) APTT (26-36) SECONDS Sodium (137-145) mmol/L Potassium (3.4-5.1) mmol/L Chloride (98-107) mmol/L Carbon Dioxide (22-32) mmol/L BUN (7-17) mg/dL Creatinine (0.52-1.04) mg/dL Estimated GFR (>60) mL/min BUN/Creatinine Ratio (6-22) Glucose (80-110) mg/dL Lactate (0.7-2.1) mmol/L Calcium (8.4-10.2) mg/dL Total Bilirubin (0.2-1.3) mg/dL AST (14-36) IU/L ALT (<35) IU/L Alkaline Phosphatase (38-126) U/L Total Creatine Kinase (30-135) U/L CK-MB (CK-2) CK-MB (CK-2) Rel Index Troponin I (0.01-0.034) ng/mL Total Protein (6.3-8.2) g/dL Albumin (3.5-5.0) g/dL Globulin (1.7-4.1) g/dL Albumin/Globulin Ratio (1.0-2.8) Lipase (23-300) U/L Procalcitonin (<0.5) ng/mL Urine Color Lt. yellow Urine Appearance Clear Urine pH 6.0 (4.5-8.0) Ur Specific [place] 1.020 (1.000-1.035) Urine Protein Negative (Negative) Urine Glucose (UA) Negative (Negative) g/dL Urine Ketones Negative (NEGATIVE) Urine Occult Blood Negative (Negative) Urine Nitrate Negative (Negative) Urine Bilirubin Negative (NEGATIVE) Urine Urobilinogen 0.2 (0.2) E.U./dL Ur Leukocyte Esterase Trace H (NEGATIVE) Urine RBC None seen (0-5/HPF) Urine WBC 5-10/hpf H (0-5/HPF) Ur Squamous Epith Cells 1-5 /hpf (0-5/HPF) Urine Bacteria Occasional (0-1) (None) Ur Culture Indicated? Specimen cultured SARS-CoV-2 (PCR) (Negative) Imaging Data Chest x-ray: Radiologist's Impression: XRay Report Signed Patient: Cindi Estrella MR#: [id number] : 1935 Acct:[id number] Age/Sex: 87 / F Date of Service: 08/18/22 Loc: ED Accession Number: [id number] ?? Procedure: XR chest 1V Ordering Provider: Justine Culp D.O. PROCEDURE:? XR CHEST 1V ? INDICATIONS:? suspected sepsis ? TECHNIQUE:? One view of the chest was acquired.? ? COMPARISON:[facility], , XR CHEST 1V, 05/16/2021, 15:12. ? FINDINGS:? ? Surgical changes and devices:? None.? ? Lungs and pleura:? Lungs are clear.? No pleural effusions or pneumothorax.? ? Mediastinum:? Mediastinal contours appear normal.? Heart size is normal.? ? Bones and chest wall:? No suspicious bony lesions.? Overlying soft tissues appear unremarkable.? ? IMPRESSION:? No evidence acute pulmonary process. ? ? ? Dictated by: Jose Daniel Pham M.D. on 08/18/2022 at 10:46 ? ? CT scan - head: Radiologist's Impression: CT Scan Report Signed Patient: Cindi Estrella MR#: [id number] : 1935 Acct:[id number] Age/Sex: 87 / F Date of Service: 08/18/22 Loc: ED Accession Number: [id number] ?? Procedure: CT head/brain wo con Ordering Provider: Justine Culp D.O. PROCEDURE:? CT HEAD/BRAIN WO CON ? INDICATIONS:? weakness confusion ? TECHNIQUE:? Noncontrast 4.5 mm thick angled axial sections acquired from the foramen magnum to the vertex, with coronal and sagittal reformats.? For radiation dose reduction, the following was used:? automated exposure control, adjustment of mA and/or kV according to patient size.? ? COMPARISON:? None. ? FINDINGS:? Image quality:? Excellent.? ? CSF spaces:? Basal cisterns are patent.? No extra-axial fluid collections.? The ventricles are symmetric in size and shape.? ? Brain:? No intracranial bleeds or masses.? There is cerebral volume loss for age, with resultant ventricular and sulcal prominence.? There are moderate to severe? periventricular and deep white matter chronic small vessel ischemic changes.? There is intracranial internal carotid artery atherosclerosis.? ? Skull and face:? Calvarium and visualized facial bones appear intact, without suspicious lesions.? ? Sinuses:? Bilateral maxillary sinus air-fluid levels. ? IMPRESSION:? ? 1. Age-related volume loss and moderate to severe small vessel ischemic change. ? 2. No evidence of acute intracranial process. ? 3. Bilateral acute maxillary sinusitis.? ? ? Dictated by: Jose Daniel Pham M.D. on 08/18/2022 at 10:58 ? ? Approved by: Jose Daniel Pham M.D. on 08/18/2022 at 10:59 ? ECG Data Interpretation: Sinus rhythm rate 70 SC interval 180 QRS 96 QTC 446 significant artifact not agree with computer of acute STEMI. Too much artifact is present but she is not having any chest MDM Narrative Medical decision making narrative: Patient is a 87-year-old female history of frequent UTIs last 1 was a couple months ago today presenting with hallucinations. Urine does have some leukocytes. She has no leukocytosis lactate is quite elevated at 3.0 procalcitonin not significantly elevated. I suspect UTI causing her hallucinations. Head CT is negative. Vitals are stable. Dr. Day hospitalist updated patient's symptoms test results and accepts patient MDM * differential diagnosis includes but not limited to: Sepsis CVA * Prior records reviewed: As above * My lab interpretation: No leukocytosis elevated lactate 3.0 normal procalcitonin normal electrolytes * My imaging interpretation: As above * Clinical Decision Rules/Scores evaluated: No * Independent discussions with: Hospitalist Dr. Day accepts * Social Considerations: Hallucinations lives alone * Shared Decision Making: With daughter *Disposition: see below, along with detailed discharge instructions that have been reviewed with patient as well as indications for ED re-evaluation and additional outpatient follow up Discharge Plan Departure Patient Disposition: Admitted As Inpatient Clinical Impression: Acute UTI, Acute metabolic encephalopathy Admit Date/Time: 08/18/22 12:16 Admit Provider: Nallely Vasquez
--- NOTE | 2022-08-18 10:11 | PC.NURSE ---
confusion, altered mental status the last few days. History of moderate alzheimer's and has had frequent issues with UTI and dehydration. Lives alone, family trying to get her to move in with them.
[2022-08-18 10:15] LABS: Add Manual Diff / Slide Review NO; Basophils Absolute Auto 100 /uL (0-100); Basophils Percent Auto 0.8 % (0-2); Eosinophils Absolute Auto 100 /uL (0-450); Eosinophils Percent Auto 1.5 % (2-4); Hematocrit 41.2 % (36-46); Hemoglobin 13.9 g/dL (12.0-16.0); Lymphocytes Absolute Auto 1400 /uL (1100-4500); Lymphocytes Percent Auto 16.1 % (25-40); Mean Corpuscular HGB Conc 33.6 % (30-36); Mean Corpuscular Hemoglobin 30.6 PG (26-34); Mean Corpuscular Volume 91.1 fL (80-100); Monocytes Absolute Auto 700 /uL (0-900); Monocytes Percent Auto 8.4 % (3-14); Neutrophils Absolute Auto 6200 /uL (1500-7000); Neutrophils Percent Auto 73.2 % (50-75); Platelet Count 278 X10^3/uL (150-400); Red Blood Cell Count 4.53 X10^6/uL (4.0-5.2); Red Cell Distribution Width 14.2 % (11.6-14.8); White Blood Cell Count 8.5 X10^3/uL (4.5-11.0)
[2022-08-18 10:21] LABS: Prothrombin Time 11.4 SECONDS (10.1-12.7)
[2022-08-18 10:23] LABS: PTT Partial Thromboplastin Tim 29 SECONDS (26-36)
[2022-08-18] MEDS: ONDANSETRON 4 MG/2 ML INJ IV (10:26)
[2022-08-18] MEDS: SODIUM CHLORIDE 0.9% 1,000 ML 1000 ML IV (10:27)
[2022-08-18 10:33] LABS: Alanine Aminotransferase 29 IU/L (<35); Albumin 4.1 g/dL (3.5-5.0); Albumin Globulin Ratio 1.1 (1.0-2.8); Alkaline Phosphatase 78 U/L (38-126); Aspartate Aminotransferase 35 IU/L (14-36); BUN Creatinine Ratio 20.4 (6-22); Bilirubin Total 0.5 mg/dL (0.2-1.3); Blood Urea Nitrogen 19 mg/dL (7-17); Calcium 9.3 mg/dL (8.4-10.2); Carbon Dioxide 21 mmol/L (22-32); Chloride 105 mmol/L (98-107); Estimated Glomerular Filt Rate 59 mL/min (>60); Globulin 3.9 g/dL (1.7-4.1); Glucose 184 mg/dL (80-110); HEMOLYSIS < 15 (0-50); Lipase 238 U/L (23-300); Potassium 4.2 mmol/L (3.4-5.1); Sodium 138 mmol/L (137-145)
--- NOTE | 2022-08-18 10:33 | DI.CT.S_ITS ---
PROCEDURE: CT HEAD/BRAIN WO CON INDICATIONS: weakness confusion TECHNIQUE: Noncontrast 4.5 mm thick angled axial sections acquired from the foramen magnum to the vertex, with coronal and sagittal reformats. For radiation dose reduction, the following was used: automated exposure control, adjustment of mA and/or kV according to patient size. COMPARISON: None. FINDINGS: Image quality: Excellent. CSF spaces: Basal cisterns are patent. No extra-axial fluid collections. The ventricles are symmetric in size and shape. Brain: No intracranial bleeds or masses. There is cerebral volume loss for age, with resultant ventricular and sulcal prominence. There are moderate to severe periventricular and deep white matter chronic small vessel ischemic changes. There is intracranial internal carotid artery atherosclerosis. Skull and face: Calvarium and visualized facial bones appear intact, without suspicious lesions. Sinuses: Bilateral maxillary sinus air-fluid levels. IMPRESSION: 1. Age-related volume loss and moderate to severe small vessel ischemic change. 2. No evidence of acute intracranial process. 3. Bilateral acute maxillary sinusitis. Dictated by: Jose Daniel Pham M.D. on 08/18/2022 at 10:58 Approved by: Jose Daniel Pham M.D. on 08/18/2022 at 10:59
[2022-08-18 10:37] LABS: Appearance Urine UA CLEAR; Bilirubin Urine UA NEGATIVE (NEGATIVE); Color Urine UA LT. YELLOW; Glucose Urine UA NEGATIVE (Negative); Ketones Urine UA NEGATIVE (NEGATIVE); Leukocyte Esterase Urine UA TRACE (NEGATIVE); Nitrite Urine UA NEGATIVE (Negative); Occult Blood Urine UA NEGATIVE (Negative); Protein Urine UA NEGATIVE (Negative); Urobilinogen Urine UA 0.2 E.U./dL (0.2)
[2022-08-18 10:44] LABS: RBC Urine None Seen (0-5/HPF); Squamous Epithelial Cell Urine 1-5 /HPF (0-5/HPF); WBC Urine 5-10/HPF (0-5/HPF)
[2022-08-18 10:45] LABS: Bacteria Urine Occasional (0-1); Culture Indicated Urine Specimen Cultured
[2022-08-18 10:49] LABS: Procalcitonin 0.08 ng/mL (<0.5)
[2022-08-18 10:56] LABS: COVID19 -Nasal RAPID Negative (Negative)
[2022-08-18 11:44] VITALS: PULSE 78; O2SAT 95
[2022-08-18 12:09] LABS: Reflexed Lactate in 2 Hours Y
[2022-08-18] MEDS: cefTRIAXone 1,000 MG in SODIUM CHLORIDE 0.9% 100 ML 200 MG IV ×2 (12:18→18:30)
[2022-08-18 12:45] LABS: Lactate 2HR (Lactic Acid Rflx) 1.2 mmol/L (0.7-2.1)
[2022-08-18 12:52] LABS: Creatine Kinase 70 U/L (30-135)
[2022-08-18 13:05] LABS: Troponin I < 0.012 ng/mL (0.01-0.034)
[2022-08-18 13:06] VITALS: BP 143/64; PULSE 83; O2SAT 93
[2022-08-18 13:40] VITALS: BP 155/72; PULSE 84; RESP 16; TEMP 36.4; O2SAT 97
[2022-08-18 16:40] VITALS: BP 183/76; PULSE 84; RESP 16; TEMP 36; O2SAT 98
--- NOTE | 2022-08-18 17:50 | PM.HP.1 ---
History of Present Illness History of Present Illness Date Patient Seen: 08/18/22 Chief complaint: confusion,hallucination,T-14 Narrative: Patient is a 87-year-old female history of CVA hypertension TIAs frequent UTIs presented today with hallucinations.? Apparently last night she saw many people in her house she called 911 no one was there.? She really has no pain.? She is very weak difficulty ambulating.? Came in with daughter who is a nurse.? Previously she had a UTI in April 2021 with similar symptoms.? She denies any abdominal pain nausea vomiting chest pain cough shortness of breath. No wheezes. No diaphoresis. Has some confusion. CT of the head in the ER showed no intracranial acute findings but does have maxillary sinus congestion Patient History Family & Social History Social History: household members none Prior Living Arrangements Apartment/Condo Safety & Behavioral: Feels Safe in Current Yes Environment Been Physically Hurt or No Threatened By a Person Tobacco & Substance use: Smoking Status Former smoker alcohol intake never alcohol intake frequency 0-2 drinks per day Substance Use Type does not use Meds Home Medications and Allergies Home Medications Medication Instructions Recorded Confirmed Type aspirin 81 mg tablet,delayed 81 mg PO DAILY 08/18/22 08/18/22 History release (Adult Low Dose Aspirin) atorvastatin 20 mg tablet 20 mg PO DAILY 08/18/22 08/18/22 History cholecalciferol (vitamin D3) 10 10 mcg PO DAILY 08/18/22 08/18/22 History mcg (400 unit) tablet escitalopram oxalate 10 mg tablet 10 mg PO DAILY 08/18/22 08/18/22 History levothyroxine 50 mcg tablet 50 mcg PO DAILY 08/18/22 08/18/22 History lisinopril 20 mg tablet 10 mg PO DAILY 08/18/22 08/18/22 History temazepam 7.5 mg capsule 7.5 mg PO BEDTIME 08/18/22 08/18/22 History verapamil 120 mg tablet 120 mg PO DAILY 08/18/22 08/18/22 History Allergies Allergy/AdvReac Type Severity Reaction Status Date / Time Sulfa (Sulfonamide Allergy Mild RASH Verified 08/18/22 10:25 Antibiotics) [SULFA (SULFONAMIDE ANTIBIOTICS)] Review of Systems Review of Systems Narrative: 14 system review was completed and pertinent findings in history of chief complaint Exam Vital Signs (past 8 hours): - 08/18/22 10:03 08/18/22 11:44 08/18/22 13:06 Temperature 98.6 F Pulse Rate 104 H 78 Respiratory Rate 16 Blood Pressure 159/72 H 143/64 H Pulse Oximetry 95 95 Oxygen Delivery Method Room Air 08/18/22 13:06 08/18/22 13:40 08/18/22 16:40 Temperature 97.6 F 96.8 F L Pulse Rate 83 84 84 Respiratory Rate 16 16 Blood Pressure 155/72 H 183/76 H Pulse Oximetry 93 97 98 Oxygen Delivery Method Room Air Oxygen Delivery Method Room Air Narrative Exam Narrative: GENERAL:? Alert week 87-year-old female appears younger than stated age and in no acute distress. HEENT: Head atraumatic,EOMI, pupils reactive, face symmetric, moist mucous membranes CARDIOVASCULAR: Regular rate and rhythm without murmurs, rubs or gallops. RESPIRATORY: Breath sounds equal bilaterally, no wheezes rales or rhonchi. ABDOMEN: Soft, nontender.? Normoactive bowel sounds all 4 quadrants.? No guarding or rebound. EXTREMITIES: Normal range of motion, no clubbing or edema.? Neurovascularly intact NEUROLOGICAL: Alert and oriented x4.Normal gait and speech.? No bilateral lower extremity weakness, safe and vault mechanic strength equal and strong bilaterally SKIN: Warm, dry, no laceration, no petechiae, no rashes or lesions. Objective Labs Result Diagrams: 08/18/22 10:00 08/18/22 10:00 Labs: Laboratory Results - last 24 hr 08/18/22 08/18/22 08/18/22 10:00 10:00 10:00 WBC 8.5 RBC 4.53 Hgb 13.9 Hct 41.2 MCV 91.1 MCH 30.6 MCHC 33.6 RDW 14.2 Plt Count 278 Neut % (Auto) 73.2 Lymph % (Auto) 16.1 L Faulkner % (Auto) 8.4 Eos % (Auto) 1.5 L Baso % (Auto) 0.8 Neut # (Auto) 6200 Lymph # (Auto) 1400 Faulkner # (Auto) 700 Eos # (Auto) 100 Baso # (Auto) 100 PT 11.4 INR 1.0 APTT 29 Sodium 138 Potassium 4.2 Chloride 105 Carbon Dioxide 21 L BUN 19 H Creatinine 0.93 Estimated GFR 59 L BUN/Creatinine Ratio 20.4 Glucose 184 H Lactate Calcium 9.3 Total Bilirubin 0.5 AST 35 ALT 29 Alkaline Phosphatase 78 Total Creatine Kinase CK-MB (CK-2) CK-MB (CK-2) Rel Index Troponin I Total Protein 8.0 Albumin 4.1 Globulin 3.9 Albumin/Globulin Ratio 1.1 Lipase 238 Procalcitonin 0.08 Urine Color Urine Appearance Urine pH Ur Specific Lincoln Urine Protein Urine Glucose (UA) Urine Ketones Urine Occult Blood Urine Nitrate Urine Bilirubin Urine Urobilinogen Ur Leukocyte Esterase Urine RBC Urine WBC Ur Squamous Epith Cells Urine Bacteria Ur Culture Indicated? SARS-CoV-2 (PCR) 08/18/22 08/18/22 08/18/22 10:00 10:05 10:15 WBC RBC Hgb Hct MCV MCH MCHC RDW Plt Count Neut % (Auto) Lymph % (Auto) Faulkner % (Auto) Eos % (Auto) Baso % (Auto) Neut # (Auto) Lymph # (Auto) Faulkner # (Auto) Eos # (Auto) Baso # (Auto) PT INR APTT Sodium Potassium Chloride Carbon Dioxide BUN Creatinine Estimated GFR BUN/Creatinine Ratio Glucose Lactate 3.0 H Calcium Total Bilirubin AST ALT Alkaline Phosphatase Total Creatine Kinase 70 CK-MB (CK-2) TNP CK-MB (CK-2) Rel Index TNP Troponin I < 0.012 Total Protein Albumin Globulin Albumin/Globulin Ratio Lipase Procalcitonin Urine Color Urine Appearance Urine pH Ur Specific Lincoln Urine Protein Urine Glucose (UA) Urine Ketones Urine Occult Blood Urine Nitrate Urine Bilirubin Urine Urobilinogen Ur Leukocyte Esterase Urine RBC Urine WBC Ur Squamous Epith Cells Urine Bacteria Ur Culture Indicated? SARS-CoV-2 (PCR) Negative 08/18/22 08/18/22 10:15 12:26 WBC RBC Hgb Hct MCV MCH MCHC RDW Plt Count Neut % (Auto) Lymph % (Auto) Faulkner % (Auto) Eos % (Auto) Baso % (Auto) Neut # (Auto) Lymph # (Auto) Faulkner # (Auto) Eos # (Auto) Baso # (Auto) PT INR APTT Sodium Potassium Chloride Carbon Dioxide BUN Creatinine Estimated GFR BUN/Creatinine Ratio Glucose Lactate 1.2 Calcium Total Bilirubin AST ALT Alkaline Phosphatase Total Creatine Kinase CK-MB (CK-2) CK-MB (CK-2) Rel Index Troponin I Total Protein Albumin Globulin Albumin/Globulin Ratio Lipase Procalcitonin Urine Color Lt. yellow Urine Appearance Clear Urine pH 6.0 Ur Specific Lincoln 1.020 Urine Protein Negative Urine Glucose (UA) Negative Urine Ketones Negative Urine Occult Blood Negative Urine Nitrate Negative Urine Bilirubin Negative Urine Urobilinogen 0.2 Ur Leukocyte Esterase Trace H Urine RBC None seen Urine WBC 5-10/hpf H Ur Squamous Epith Cells 1-5 /hpf Urine Bacteria Occasional (0-1) Ur Culture Indicated? Specimen cultured SARS-CoV-2 (PCR) Assessment & Plan Assessment & Plan narrative: 1. Urinary tract infection with hallucinations. Treat with ceftriaxone 1 g IV every 24 hours. Follow hallucinations, determine if they resolve if persistent may need treatment. 2. Concern for sinusitis on CT of the head. Provide prednisone 20 mg daily for 5 days to help with sinus congestion. Continue treatment following the ceftriaxone treatment with Augmentin 500 mg/125 mg p.o. t.i.d. for 9 days 3. Hyperlipidemia continue atorvastatin. 4. Anxiety/depression continue escitalopram. 5. Hypothyroidism. Continue levothyroxine replacement. Measure TSH free T4 and free T3. 6. Hypertension. Continue to treat with lisinopril and verapamil. 7. Insomnia. With temazepam at night. Discussion of results, plan of care with independent HCP/other ED physician. Reviewed outside records: Prior ED records VTE Prophylaxis: Enoxaparin 40 mg subQ once daily? Bilateral SCDs Patient is admitted to the inpatient service due to the severity of disease, risks of further disease progression and this stay is expected to exceed 2 midnights. All means possible were attempted to reconcile the patient's home medication. Code status: DNR this was discussed with the patient. Surrogate decision maker:Pateint's son Laurent Estrella Time Spent With Patient Critical Care time: I spent a total of [] minutes of critical care time on this patient's care today; this time is exclusive of procedural time. Quality VTE Deep Vein Thrombosis/Pulmonary Embolism Present on Admission: No
[2022-08-18 20:15] VITALS: BP 172/72; PULSE 90; RESP 18; TEMP 36.7; O2SAT 94
[2022-08-18] MEDS: ATORVASTATIN 20 MG TABLET PO (20:54)
[2022-08-18] MEDS: TEMAZEPAM 15 MG CAPSULE PO (20:56)
--- NOTE | 2022-08-19 04:09 | PC.NURSE ---
pt b/p have been elevated with a SBP>150'S and up to 180's, no headaches or dizziness. ZAID Renae notified,
[2022-08-19 04:12] VITALS: BP 181/110; PULSE 115; RESP 18; TEMP 36.7; O2SAT 95
[2022-08-19] MEDS: VERAPAMIL 120 MG TABLET PO ×2 (04:30→08:15)
[2022-08-19] MEDS: ACETAMINOPHEN 325 MG TABLET 650 MG PO (04:57)
[2022-08-19] MEDS: LEVOTHYROXINE 50 MCG TABLET PO (06:05)
[2022-08-19 06:38] LABS: Add Manual Diff / Slide Review NO; Basophils Absolute Auto 0 /uL (0-100); Basophils Percent Auto 0.6 % (0-2); Eosinophils Absolute Auto 300 /uL (0-450); Hematocrit 39.2 % (36-46); Hemoglobin 12.9 g/dL (12.0-16.0); Lymphocytes Absolute Auto 1700 /uL (1100-4500); Lymphocytes Percent Auto 20.1 % (25-40); Mean Corpuscular HGB Conc 32.9 % (30-36); Mean Corpuscular Hemoglobin 30.2 PG (26-34); Mean Corpuscular Volume 91.6 fL (80-100); Monocytes Absolute Auto 1100 /uL (0-900); Monocytes Percent Auto 12.5 % (3-14); Neutrophils Absolute Auto 5400 /uL (1500-7000); Neutrophils Percent Auto 63.8 % (50-75); Platelet Count 258 X10^3/uL (150-400); Red Blood Cell Count 4.28 X10^6/uL (4.0-5.2); Red Cell Distribution Width 14.5 % (11.6-14.8); White Blood Cell Count 8.5 X10^3/uL (4.5-11.0)
[2022-08-19 06:45] LABS: Alanine Aminotransferase 27 IU/L (<35); Albumin 3.7 g/dL (3.5-5.0); Alkaline Phosphatase 76 U/L (38-126); Aspartate Aminotransferase 34 IU/L (14-36); BUN Creatinine Ratio 25.6 (6-22); Bilirubin Total 0.4 mg/dL (0.2-1.3); Blood Urea Nitrogen 20 mg/dL (7-17); Calcium 8.8 mg/dL (8.4-10.2); Carbon Dioxide 24 mmol/L (22-32); Chloride 105 mmol/L (98-107); Estimated Glomerular Filt Rate > 60 mL/min (>60); Globulin 3.6 g/dL (1.7-4.1); Glucose 94 mg/dL (80-110); HEMOLYSIS < 15 (0-50); Potassium 4.1 mmol/L (3.4-5.1); Sodium 137 mmol/L (137-145); Total Protein 7.3 g/dL (6.3-8.2)
[2022-08-19 07:15] LABS: Free T3, Triiodothyronine Free 3.34 pg/mL (2.77-5.27); Free T4, Direct Thyroxine 1.08 ng/dL (0.78-2.19)
[2022-08-19 07:29] LABS: Thyroid Stimulating Hormone 2.42 uIU/mL (0.47-4.68)
[2022-08-19] MEDS: ESCITALOPRAM 10 MG TABLET PO (08:14)
[2022-08-19 08:15] VITALS: BP 157/80; PULSE 81
[2022-08-19] MEDS: lisinopriL 20 MG TABLET 10 MG PO (08:15)
[2022-08-19] MEDS: CHOLECALCIFEROL (VITAMIN D3) 1,000 UNIT TABLET 1000 UNIT PO (08:16)
[2022-08-19] MEDS: predniSONE 20 MG TABLET PO (08:16)
[2022-08-19] MEDS: ASPIRIN EC 81 MG TABLET PO (08:16)
[2022-08-19 08:28] VITALS: BP 157/80; PULSE 87; RESP 16; TEMP 36.1; O2SAT 93
--- NOTE | 2022-08-19 09:21 | CM.DANOTE ---
Addendum entered by Alix Paredes R.N. 08/19/22 14:50: Patient may be discharging home tomorrow, plan is for her to switch to oral antibiotics, according to hospitalist. Addendum entered by Alix Paredes R.N. 08/19/22 14:39: Left a message with patient's son, Laurent, at his work number, home number not working. Sunitha in O.T, indicated, she did ok with therapy, but some memory issues. Was informed that patient may be staying with family members upon discharge, since she lives alone. Original Note: DCP: Case received, EMR reviewed and met with patient. Introduced self and role. Was able to obtain information regarding patient's baseline activity status prior to hospitalization, as well as her current living situation. DCP assessment completed with information currently available. Patient is an 87 year female who admitted yesterday afternoon to the care of the hospitalist team. PCP: Dr. Arellano. Payer: confirmed: Medicare/[employer]. Patient came to the hospital via private vehicle, secondary to confusion and weakness. Notes indicate that patient had hallucinations, had been seeing people in her house, called 911, no one was there. Patient also had difficulty ambulating. She was accompanied by her [id number] who is a nurse. Patient has history of frequent urinary tract infections, as well as CVA, TIA. Patient was diagnosed with Urinary Tract Infection with hallucinations, metabolic encephalopathy. She is currently on IV ABO. Met with patient in her room. She has been sitting on the edge of her bed, having her breakfast. 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 Confirmed that she resides in [place] alone, she is a . She has a son, main contact, Cheikh, he works, lives nearby, and his spouse, Lucina, is a nurse. Patient gives verbal permission to contact son with any additional questions. She also has friends, one of her friends assists patient at home, with chores, etc. She uses a four wheel walker to get around, does not drive. P: DCP to continue to follow. At this time, plan is home when stable, will see if she may benefit with home health. Alix Paredes RN/Various Exceptionalities Teacher Discharge Planning/Care Management CM Discharge Assessment Start: 08/19/22 09:17 Freq: Status: Active Protocol: Document 08/19/22 09:18 (Rec: 08/19/22 09:21 [id number]) Discharge Planning Assessment Assigned Gear Machine Operator General Alix Paredes RN/Various Exceptionalities Teacher Advance Directives? Yes Advance Directives on File Yes History Provided By Patient,Family Member,Medical Record Prior Living Arrangements Apartment/Condo Household Members none Type of transporation used prior to Relies on Others admit Comment Patient has family and friends that transport her to appointments. Independent with ADL's Yes Is patient alert and oriented? Yes Needs Assistance With Home Chores / Shopping Caregiver for Another No DME Already Rented / Owned Other Comment Patient uses four wheel walker Comment As long as mentation improves, she lives alone. Discharge Plan Home Transportation Arrangement Family or friends. Referrals Initiated Other Additional Comment May consider home health if needed, will see how she does here in the hospital. Whiteboard Updated in Patient Room with Yes name and ext. # of Gear Machine Operator General Review Status In Process Next Review Type Continued Stay Review
--- NOTE | 2022-08-19 11:55 | PT.IIE ---
Current Diagnoses Urinary tract infection, site not specified (08/18/22) Physical Therapy Inpatient Evaluation/Re-Eval M1 PT/OT-IP Prior Functional Status Start: 08/19/22 12:49 Freq: NEEDED Status: Active Protocol: Document 08/19/22 11:55 AB (Rec: 08/19/22 13:00 AB [email or web address]) Medical Review Prior Functional Status Medical History Reviewed Yes Communication able to make needs known Mobility and Gait pt stated that she is modified independent with all mobilities and ambulation without AD indoors but uses a 4WW for outdoor mobility; stated that she is unable to walk far due to easily gets tired and balance issues Social History Household Members none Living Arrangements Apartment/Condo Number of Floors (Floors) One Floor Number of Stairs To Enter/Railing? no steps to enter Home Environment High Toilet,Tub/Shower Home Equipment Four Wheel Walker,Shower Seat with Backrest,Grab Bars In Shower Additional Social History Comment pt's [id number]-ide will be able to assist pt : lives ~ 5 miles away from pt M2 PT-IP Current Condition Start: 08/19/22 12:49 Freq: NEEDED Status: Active Protocol: Document 08/19/22 11:55 AB (Rec: 08/19/22 13:00 AB [email or web address]) Physical Therapy Current Condition Current Condition Evaluation Date 08/19/22 Treatment Diagnosis UTI; acute metabolic encephalopathy; difficulty in walking Onset Date 08/18/22 M3 PT-IP Subjective Start: 08/19/22 12:49 Freq: NEEDED Status: Active Protocol: Document 08/19/22 11:55 AB (Rec: 08/19/22 13:00 AB [email or web address]) Subjective Physical Therapy Visit Type Type Initial Evaluation Visit Start Time 11:55 Visit Stop Time 12:20 Total Visit Minutes 25 Number of SENIOR TECHNICAL MANAGER Visits 0 Physical Therapy Visit Comments Patient Comments agreeable to do PT Therapy Pain Assessment Pain Present Pain Present Denied Pain M4 PT-IP Mobility and Gait Start: 08/19/22 12:49 Freq: NEEDED Status: Active Protocol: Document 08/19/22 11:55 AB (Rec: 08/19/22 13:00 AB [email or web address]) PT-Bed Mobility Assessment Supine to Sit Supine to Sit Standby Assistance Sit to Supine Sit to Supine Standby Assistance PT-Transfer Assessment Sit to and From Stand Sit to and from Stand Standby Assistance,1 Person Assistance,Use of Upper Extremities Equipment Transfer Assistive Device None,Gait Belt,4 Wheeled Walker Orthotic/Prosthetic Devices or Brace: No Comments Mobility Comments pt sitting on EOB. demonstrated bed mobiltiy SBA. completed sit to stand SBA and ambulated in room without AD CGA and cues ~ 20 ft. presents with usnteady guarded gait with decrease LE elevation. Assessed ambulation using 4WW and pt completed in room ~ 35ft SBA. presents with steadier gait. pt refuse to sit up on the chair and requested to go back to bed. Left pt with family in room. call light and table placed within reach. Gait Assessment Gait Gait Assistance Required: Standby Assistance,Contact Guard Assist Distance (Feet) 35 Able to Maintain Weight Bearing Status Yes During Gait Assistive Devices Assistive Device Gait Belt,4 Wheeled Walker Orthotic/Prosthetic Devices or Brace: No Gait Deviations General Gait Pattern Decreased Stride Length, Decreased Feet Clearance Factors Limiting Gait Function Factors Limiting Gait Function Decreased Activity Tolerance, Decreased Sensation,Difficulty Following Directions, Incoordination,Pain,Poor Balance,Poor Safety Awareness PT-Balance Assessment Sitting Balance and Reactions Static Sitting Balance Ability Normal Dynamic Sitting Balance Ability Normal Standing Balance and Reactions Static Standing Balance Ability Fair Dynamic Standing Balance Ability Fair Device Used without AD M5 PT-IP Objective Assessments Start: 08/19/22 12:49 Freq: NEEDED Status: Active Protocol: Document 08/19/22 11:55 AB (Rec: 08/19/22 13:00 AB [email or web address]) Orientation Orientation/Cognition Level of Alertness Alert Orientation Name,Place,Situation Language Function Ability Hard of Hearing Safety Awareness Decreased Safety Awareness Memory Description Short Term Impaired Gross Range of Motion Lower Extremity ROM Assessment Within Functional Limits Strength Lower Extremity Strength Hip 4-/5 Knee 4-/5 Muscle Tone Muscle Tone WNL Yes M6 PT-IP Treatment Start: 08/19/22 12:49 Freq: NEEDED Status: Active Protocol: Document 08/19/22 11:55 AB (Rec: 08/19/22 13:00 AB [email or web address]) Physical Therapy Treatment Education Education Provided Safety M7 PT-IP Assessment and Plan Start: 08/19/22 12:49 Freq: NEEDED Status: Active Protocol: Document 08/19/22 11:55 AB (Rec: 08/19/22 13:00 AB [email or web address]) PT Summary Assessment and Plan Potential Rehabilitation Potential Good Status of Condition at Evaluation Stable Summary Impairments Pain,ROM,Strength,Balance, Coordination,Sensation,Tone, Cognition,Bed Mobility, Transfers,Gait,Activity Tolerance Assessment Summary pt requiring SBA to CGA with mobility using 4WW. pt has her DIL to assist her when needed . pt will benefit from HHPT. Goals Bed Mobility Goal Independent Transfer Goal Independent,Four Wheeled Walker Gait Goal Independent,Four Wheel Walker Gait Distance 150 Other Goals improve ambulation without AD 100 ft mod I Days to Meet Goals 5 Frequency of Treatment Frequency Of Treatment Once a Day Treatment Plan Physical Therapy Treatment Plan Bed Mobility Training,Transfer Training,Gait Training, Therapeutic Exercise,Balance Retraining,Discharge Planning, Hot or Cold Pack,Neuromuscular Re-ed,Coordination Retraining Recommendations To Nursing Amount of Assist Needed 1 Person Assist Discharge Recommendations PT Discharge Recommendations Home with Assistance,Home Health Transportation Needs at Discharge Private Vehicle
[2022-08-19 12:09] VITALS: BP 147/70; PULSE 73; RESP 18; TEMP 36.8; O2SAT 95
[2022-08-19] MEDS: ENOXAPARIN 40 MG/0.4 ML SYRINGE SUBCUT (13:12)
--- NOTE | 2022-08-19 14:27 | OT.IP.EVAL ---
Current Diagnoses Urinary tract infection, site not specified (08/18/22) Occupational Therapy Inpatient Evaluation/Re-Eval M1 PT/OT-IP Prior Functional Status Start: 08/19/22 12:49 Freq: NEEDED Status: Active Protocol: Document 08/19/22 14:40 [facility] (Rec: 08/19/22 14:59 [facility] [id number]) Medical Review Prior Functional Status Medical History Reviewed Yes Communication able to make needs known Mobility and Gait pt stated that she is modified independent with all mobilities and ambulation without AD indoors but uses a 4WW for outdoor mobility; stated that she is unable to walk far due to easily gets tired and balance issues Activities of Daily Living and IADL's Pt states completely independent with ADl and IADL needs however admits that her family has taken over doing her laundry. Social History Household Members none Living Arrangements Apartment/Condo Number of Floors (Floors) One Floor Number of Stairs To Enter/Railing? no steps to enter Home Environment High Toilet,Tub/Shower Home Equipment Four Wheel Walker,Shower Seat with Backrest,Grab Bars In Shower Additional Social History Comment pt's [id number] will be able to assist pt : lives ~ 5 miles away from pt M2 OT-IP Current Condition Start: 08/19/22 14:39 Freq: Status: Active Protocol: Document 08/19/22 14:40 [facility] (Rec: 08/19/22 14:59 [facility] [id number]) Occupational Therapy Current Condition Current Condition Evaluation Date 08/19/22 Treatment Diagnosis UTI, acute encephalopathy Diagnosis Onset Date 08/18/22 M3 OT- IP Subjective and Pain Start: 08/19/22 14:39 Freq: Status: Active Protocol: Document 08/19/22 14:40 [facility] (Rec: 08/19/22 14:59 [facility] [id number]) OT- Subjective Occupational Therapy Visit Type Type Initial Evaluation Visit Start Time 14:00 Visit Stop Time 14:27 Total Visit Minutes 27 Occupational Therapy Visit Comments Patient Comments Pt agreed to get up. Patient/Caregiver Goals To go home, but states may be going to her son's home. OT Pain Assessment Pain When Pain Assessed At Rest Pain Present Pain Present Denied Pain M4 OT- IP ADL's Start: 08/19/22 14:39 Freq: Status: Active Protocol: Document 08/19/22 14:40 [facility] (Rec: 08/19/22 14:59 [facility] [id number]) OT [id number] Comments OT Self-Feeding Comments Not at meal time. OT ADL-Grooming General Evaluation Grooming Ability Independent Comments OT Grooming Comments Pt able to brush her hair on her own. OT ADL-Oral Care Comments Oral Care Comments Pt states just did prior. OT ADL-Dressing General Eval Lower Body Dressing Ability Standby Assistance Comments OT Dressing Comments Pt able to sergo/doff her slippes on her own and states put on her jeans earlier. OT ADL-Toileting Comments OT Toileting Comments Pt states just used the toilet prior. OT ADL-Bathing Comments OT Bathing Comments Not performed. M5 OT- IP IADL's Start: 08/19/22 14:39 Freq: Status: Active Protocol: Document 08/19/22 14:40 [facility] (Rec: 08/19/22 14:59 [facility] [id number]) OT-Instrumental Activities of Daily Living Deficits IADL Deficits Identified Deficits Home Safety Awareness Awareness of Need for Assistance at Home Decreased Awareness Ability to Problem Solve Emergency Able to Problem Solve Situations Home Safety Comments Pt able to correctly answer home safety questions. Medication Management Medication Management Comments Concerns for safety due to her decreased STM. Pt states has a routine of eating 1/2 of her peanut butter sandwich and then taking her medications and then eating the rest of her sandwich. Money Management Money Management Comments Pt states does automatic payments, at this time best for pt to have assist. Meal Preparation Meal Preparation Comments Best to have assist for safety . Practicing Urologist Practicing Urologist Comments Best for pt to have assist for safety. Driving Driving Caregiver Provides Assist M6 OT- IP Functional Cognition Start: 08/19/22 14:39 Freq: Status: Active Protocol: Document 08/19/22 14:40 [facility] (Rec: 08/19/22 14:59 [facility] [id number]) Cognitive Factors Limiting Selfcare Function Cognitive Ability Level of Alertness Alert Patient Orientation Name,Age,Birthday,Year,Place Attention Span Ability Capable of Focused Attention, Capable of Sustained Attention Ability to Follow Commands Able to Follow One Step Commands Memory Description Short Term Impaired,Working Impaired Problem Solving Ability Unable to Identify Errors, Needs Assist to Identify Solutions Executive Function Ability Unable to Organize Plans, Unable to Remember Details Cognitive Tests SLUMS Pt scored 17/30 which implies dementia. Pt thought is was Thursday versus Thursday, able to state 8 animals in one minute, able to recall 1/5 objects after time passed, unable to say 3 and 4 digit numbers backwards, unable to draw the hands on the clock accurately after time given, and able to answer 3/4 questions right after paragraph read. Cognitive Comments Cognitive Assessment Comments Pt able to follow commands and sequence through her ADl's. Pt has difficulty with her short term memory. Pt does not recall to lock and unlock the brakes on her 4ww OT- Vision and Hearing OT- Hearing Assessment OT- Hearing Assessment Hearing Impaired OT- Vision Assessment Visual Acuity Glasses All The Time Occular Pursuits WFL Visual [place] WFL M7 OT- IP Mobility and Balance Start: 08/19/22 14:39 Freq: Status: Active Protocol: Document 08/19/22 14:40 [facility] (Rec: 08/19/22 14:59 [facility] [id number]) OT- Bed Mobility Assessment Supine to Sit Supine to Sit Assist Independent Sit to Supine Sit to Supine Assist Independent OT-Transfer Assessment Sit to and From Stand Sit to and from Stand Standby Assistance Transfers Transfer Ability Standby Assistance Technique Transfer Destination Bed Transfer Technique Stand Step Pivot Devices Transfer Assistive Devices 4 Wheeled Walker Comments Mobility Comments Pt able to get into and out of the bed on her own. SBA with 4ww in the room. OT- Balance Assessment Sitting Balance and Reactions Static Sitting Balance Ability Normal Dynamic Sitting Balance Ability Good Standing Balance and Reactions Static Standing Balance Ability Good Dynamic Standing Balance Ability Fair Comments Other Balance Tests/Deviations/Treatment Balance with use of 4ww : M8 OT- IP Objective Assessments Start: 08/19/22 14:39 Freq: Status: Active Protocol: Document 08/19/22 14:40 [facility] (Rec: 08/19/22 14:59 [facility] [id number]) OT Gross Range of Motion Upper Extremity Range of Motion Assessment Within Functional Limits OT Strength Upper Extremity Strength Assessment Within Functional Limits OT- Coordination Assessment Upper Extremity Finger to Nose Test Within Functional Limits OT-Muscle Tone Assessment Muscle Tone WNL Yes M9 OT- IP Assessment and Plan Start: 08/19/22 14:39 Freq: Status: Active Protocol: Document 08/19/22 14:40 [facility] (Rec: 08/19/22 14:59 [facility] [id number]) OT Summary Assessment and Plan Potential Rehabilitation Potential Good Analytic Complexity at Evaluation Low Summary OT Impairments Balance,Functional Cognition, Functional Mobility,Dressing, Toileting,Bathing,Toilet Transfers,Shower Transfers Progress Towards Goals Progressing Toward Goals Assessment Summary Pt here due to UTI and acute metabolic encephalopathy but pt feels that she is back to her baseline. Pt has difficulty with her short term memory and per pt family now doing her laundry for her. Pt still able to sequence through ADL needs and answer home safety questions with good accuracy. Pt would benefit from 24/7 available assist but not 1:1 assist at home. Pt would benefit from home health to look at her safety in home environment and during her daily routine. Goals Self-Feeding Goal Independent Grooming Goal Independent Dressing Goal Independent Toileting Goal Independent Bathing Goal Standby Assistance Toilet Transfer Goal Independent Shower Transfer Goal Standby Assistance Days to Meet Goals 5 Frequency of Treatment Frequency Of Treatment Once a Day Treatment Plan OT Treatment Plan ADL Training,Functional Cognition Training,Functional Mobility,Patient/Family Education,Discharge Planning Other Treatment Recommendations and Next shower Treatment Focus Discharge Recommendations OT Discharge Recommendations Home with 24/7 Assist Available,Home Health Transportation Needs at Discharge Private Vehicle
--- NOTE | 2022-08-19 14:38 | P.PN_ITS ---
Subjective Subjective Date Patient Seen: 08/19/22 Interval history: Patient improving. Had a good sleep. No further hallucinations per patient. Legs feel stronger but still a 1 person assist per physical therapy. The patient is safe to go home it was reasonable to stay till tomorrow and if labs are stable then compliant on discharging home tomorrow. Exam Vital Signs (past 8 hours): - 08/19/22 08:15 08/19/22 08:28 08/19/22 12:09 Temperature 97.0 F L 98.3 F Pulse Rate 81 87 73 Respiratory Rate 16 18 Blood Pressure 157/80 H 157/80 H 147/70 H Pulse Oximetry 93 95 Oxygen Flow Rate 0 0 Oxygen Delivery Method Room Air Oxygen Flow Rate 0 Narrative Exam Narrative: GENERAL:? Alert and in no acute distress. HEENT: Head atraumatic,EOMI, pupils reactive, wearing glasses CARDIOVASCULAR: Regular rate and rhythm without murmurs, rubs or gallops. RESPIRATORY: Breath sounds equal bilaterally, no wheezes rales or rhonchi. ABDOMEN: Soft, nontender.? Normoactive bowel sounds all 4 quadrants.? EXTREMITIES: Normal range of motion, no clubbing or edema.? Neurovascularly intact NEUROLOGICAL: Alert and oriented x4.Normal gait and speech.? No bilateral lower extremity weakness in remains 1 person assist, manager it training strength equal and strong bilaterally SKIN: Warm, dry, no laceration, no petechiae, no rashes or lesions. Objective Labs 08/19/22 05:30 08/19/22 05:30 Labs: Laboratory Results - last 24 hr 08/19/22 08/19/22 08/19/22 05:30 05:30 05:30 WBC 8.5 RBC 4.28 Hgb 12.9 Hct 39.2 MCV 91.6 MCH 30.2 MCHC 32.9 RDW 14.5 Plt Count 258 Neut % (Auto) 63.8 Lymph % (Auto) 20.1 L [place] % (Auto) 12.5 Eos % (Auto) 3.0 Baso % (Auto) 0.6 Neut # (Auto) 5400 Lymph # (Auto) 1700 [place] # (Auto) 1100 H Eos # (Auto) 300 Baso # (Auto) 0 Sodium 137 Potassium 4.1 Chloride 105 Carbon Dioxide 24 BUN 20 H Creatinine 0.78 Estimated GFR > 60 BUN/Creatinine Ratio 25.6 H Glucose 94 Calcium 8.8 Total Bilirubin 0.4 AST 34 ALT 27 Alkaline Phosphatase 76 Total Protein 7.3 Albumin 3.7 Globulin 3.6 Albumin/Globulin Ratio 1.0 TSH 2.42 Free T4 1.08 Free T3 3.34 [facility] Social History household members: none Smoking Status: Former smoker alcohol intake: never Assessment & Plan Assessment & Plan narrative: 1. Urinary tract infection with hallucinations.? Treat with ceftriaxone 1 g IV every 24 hours.? Urine culture is contaminant only. We will transitioned to A ugmentin only and do for the full 14 days of antibiotic treatment. No associated hallucinations continue to follow. 2. Concern for sinusitis on CT of the head.? Provide prednisone 20 mg daily for 5 days to help with sinus congestion.? Since discontinuing ceftriaxone will initiate Augmentin 500 mg/125 mg p.o. t.i.d. now and continue to the evening of September 01, 2022. 3. Hyperlipidemia continue atorvastatin. 4. Anxiety/depression continue escitalopram. 5. Hypothyroidism.? Continue levothyroxine replacement.? Measure TSH free T4 and free T3. 6. Hypertension.? Continue to treat with lisinopril and verapamil. 7. Insomnia.? With temazepam at night.? 8. Decreased mobility with need for 1 person assist. Continue to monitor and if improves sufficiently by tomorrow or the next day will discharge to home. VTE Prophylaxis: Enoxaparin 40 mg subQ once daily? Bilateral SCDs Code status:? DNR this was discussed with the patient. Surrogate decision maker:Pateint's son Laurent Estrella Time Spent With Patient Critical Care time: I spent a total of [] minutes of critical care time on this patient's care today; this time is exclusive of procedural time. Quality VTE Deep Vein Thrombosis/Pulmonary Embolism Present on Admission: No
[2022-08-19] MEDS: AMOXICILLIN/CLAV 500/125 MG 1 TAB PO ×2 (15:36→20:17)
[2022-08-19 15:51] VITALS: BP 146/77; PULSE 80; RESP 16; TEMP 36.8; O2SAT 95
[2022-08-19 19:15] VITALS: BP 178/97; PULSE 96; RESP 18; TEMP 36.3; O2SAT 96
[2022-08-19] MEDS: ATORVASTATIN 20 MG TABLET PO (20:17)
[2022-08-19] MEDS: TEMAZEPAM 15 MG CAPSULE PO (21:17)
[2022-08-20 00:54] VITALS: BP 156/72; PULSE 81; RESP 18; TEMP 36.7; O2SAT 95
[2022-08-20] MEDS: LEVOTHYROXINE 50 MCG TABLET PO (05:47)
[2022-08-20 07:45] VITALS: BP 172/82; PULSE 82; RESP 18; TEMP 36.3; O2SAT 95
--- NOTE | 2022-08-20 08:34 | P.PN_ITS ---
Exam Vital Signs (past 8 hours): - 08/20/22 00:54 Temperature 98.0 F Pulse Rate 81 Respiratory Rate 18 Blood Pressure 156/72 H Pulse Oximetry 95 Oxygen Flow Rate 0 Oxygen Delivery Method Room Air Oxygen Flow Rate 0 Narrative Exam Narrative: GENERAL:? Alert and in no acute distress. HEENT: Head atraumatic,EOMI, pupils reactive, wearing glasses CARDIOVASCULAR: Regular rate and rhythm without murmurs, rubs or gallops. RESPIRATORY: Breath sounds equal bilaterally, no wheezes rales or rhonchi. ABDOMEN: Soft, nontender.? Normoactive bowel sounds all 4 quadrants.? EXTREMITIES: Normal range of motion, no clubbing or edema.? Neurovascularly intact NEUROLOGICAL: Alert and oriented x4.Normal gait and speech.? No bilateral lower extremity weakness in remains 1 person assist, electrical prospecting operator strength equal and strong bilaterally SKIN: Warm, dry, no laceration, no petechiae, no rashes or lesions. Objective Labs 08/19/22 05:30 08/19/22 05:30 [facility] Social History household members: none Smoking Status: Former smoker alcohol intake: never Assessment & Plan Assessment & Plan narrative: 1. Urinary tract infection with hallucinations.? Treat with ceftriaxone 1 g IV every 24 hours.? Urine culture is contaminant only. We will transitioned to A ugmentin only and do for the full 14 days of antibiotic treatment. No associated hallucinations continue to follow. 2. Concern for sinusitis on CT of the head.? Provide prednisone 20 mg daily for 5 days to help with sinus congestion.? Since discontinuing ceftriaxone will initiate Augmentin 500 mg/125 mg p.o. t.i.d. now and continue to the evening of September 01, 2022. 3. Hyperlipidemia continue atorvastatin. 4. Anxiety/depression continue escitalopram. 5. Hypothyroidism.? Continue levothyroxine replacement.? Measure TSH free T4 and free T3. 6. Hypertension.? Continue to treat with lisinopril and verapamil. 7. Insomnia.? With temazepam at night.? 8. Decreased mobility with need for 1 person assist. Continue to monitor and if improves sufficiently by tomorrow or the next day will discharge to home. VTE Prophylaxis: Enoxaparin 40 mg subQ once daily? Bilateral SCDs Code status:? DNR this was discussed with the patient. Surrogate decision maker:Pateint's son Laurent Estrella Time Spent With Patient Critical Care time: I spent a total of [] minutes of critical care time on this patient's care today; this time is exclusive of procedural time. Quality VTE Deep Vein Thrombosis/Pulmonary Embolism Present on Admission: No
[2022-08-20] MEDS: VERAPAMIL 120 MG TABLET PO (09:03)
[2022-08-20] MEDS: ENOXAPARIN 40 MG/0.4 ML SYRINGE SUBCUT (09:03)
[2022-08-20] MEDS: AMOXICILLIN/CLAV 500/125 MG 1 TAB PO (09:03)
[2022-08-20] MEDS: ESCITALOPRAM 10 MG TABLET PO (09:04)
[2022-08-20] MEDS: predniSONE 20 MG TABLET PO (09:04)
[2022-08-20] MEDS: lisinopriL 20 MG TABLET 10 MG PO (09:04)
[2022-08-20] MEDS: ASPIRIN EC 81 MG TABLET PO (09:04)
[2022-08-20] MEDS: CHOLECALCIFEROL (VITAMIN D3) 1,000 UNIT TABLET 1000 UNIT PO (09:04)
--- NOTE | 2022-08-20 11:16 | OT.IP.TRT ---
Current Diagnoses Urinary tract infection, site not specified (08/18/22) Occupational Therapy Treatment Note M2 OT-IP Current Condition Start: 08/19/22 14:39 Freq: Status: Active Protocol: Document 08/19/22 14:40 [facility] (Rec: 08/19/22 14:59 [facility] [id number]) Occupational Therapy Current Condition Current Condition Evaluation Date 08/19/22 Treatment Diagnosis UTI, acute encephalopathy Diagnosis Onset Date 08/18/22 M3 OT- IP Subjective and Pain Start: 08/19/22 14:39 Freq: Status: Active Protocol: Document 08/20/22 10:42 [facility] (Rec: 08/20/22 11:29 [facility] [id number]) OT- Subjective Occupational Therapy Visit Type Type Treatment Note Visit Start Time 10:42 Visit Stop Time 11:16 Total Visit Minutes 24 Occupational Therapy Visit Comments Patient Comments Pt agreed to shower. Patient/Caregiver Goals To go home. Pt states to be going to her son's home. OT Pain Assessment Pain When Pain Assessed At Rest Pain Present Pain Present Denied Pain M4 OT- IP ADL's Start: 08/19/22 14:39 Freq: Status: Active Protocol: Document 08/20/22 10:42 [facility] (Rec: 08/20/22 11:29 [facility] [id number]) OT [id number] Comments OT Self-Feeding Comments Not at meal time. OT ADL-Grooming Comments OT Grooming Comments Not performed. OT ADL-Oral Care Comments Oral Care Comments Not performed OT ADL-Dressing General Eval Lower Body Dressing Ability Minimal Assistance Comments OT Dressing Comments HEAVEN to help get the brief over her toes. Close SBA while pt standing to pull up her brief. OT ADL-Toileting General Evaluation Toileting Ability Standby Assistance Comments OT Toileting Comments SBA for cues for completeness. OT ADL-Bathing Bathing Type Bathing Type Shower General Evaluation Bathing Ability Minimal Assistance Areas Needing Assistance Wash/Dry Back Comments OT Bathing Comments Pt able to do most of her shower seated and use of grab bar and CGA for balance when standing to do pericare needs. M6 OT- IP Functional Cognition Start: 08/19/22 14:39 Freq: Status: Active Protocol: Document 08/20/22 10:42 [facility] (Rec: 08/20/22 11:29 [facility] [id number]) Cognitive Factors Limiting Selfcare Function Cognitive Comments Cognitive Assessment Comments Pt needing occasional cues for completeness for toileting needs otherwise was able to sequence for bathing needs on her own. M7 OT- IP Mobility and Balance Start: 08/19/22 14:39 Freq: Status: Active Protocol: Document 08/20/22 10:42 [facility] (Rec: 08/20/22 11:29 [facility] [id number]) OT- Bed Mobility Assessment Supine to Sit Supine to Sit Assist Independent Sit to Supine Sit to Supine Assist Independent OT-Transfer Assessment Sit to and From Stand Sit to and from Stand Standby Assistance Transfers Transfer Ability Standby Assistance,Contact Guard Assistance Technique Transfer Destination Bed,Shower Stall,Toilet Transfer Technique Stand Step Pivot Devices Transfer Assistive Devices None,Front Wheeled Walker Comments Mobility Comments CGA to help step over the threshold of the shower as a little unsteady on her feet. OT- Balance Assessment Sitting Balance and Reactions Static Sitting Balance Ability Normal Dynamic Sitting Balance Ability Good Standing Balance and Reactions Static Standing Balance Ability Fair Dynamic Standing Balance Ability Poor Comments Other Balance Tests/Deviations/Treatment balance without FWW : M8 OT- IP Objective Assessments Start: 08/19/22 14:39 Freq: Status: Active Protocol: Document 08/19/22 14:40 [facility] (Rec: 08/19/22 14:59 [facility] [id number]) OT Gross Range of Motion Upper Extremity Range of Motion Assessment Within Functional Limits OT Strength Upper Extremity Strength Assessment Within Functional Limits OT- Coordination Assessment Upper Extremity Finger to Nose Test Within Functional Limits OT-Muscle Tone Assessment Muscle Tone WNL Yes M9 OT- IP Assessment and Plan Start: 08/19/22 14:39 Freq: Status: Active Protocol: Document 08/20/22 10:42 [facility] (Rec: 08/20/22 11:29 [facility] [id number]) OT Summary Assessment and Plan Potential Rehabilitation Potential Good Analytic Complexity at Evaluation Low Summary OT Impairments Balance,Functional Cognition, Functional Mobility,Dressing, Toileting,Bathing,Toilet Transfers,Shower Transfers Progress Towards Goals Progressing Toward Goals Assessment Summary Pt able to shower today and had slight loss of balance when coming to stand and needing assist to help get the brief over her feet. Pt states go to her son's home. Pt will benefit from 16/02 available assist but not 1:1 assist at home and home health . Goals Self-Feeding Goal Independent Grooming Goal Independent Dressing Goal Independent Toileting Goal Independent Bathing Goal Standby Assistance Toilet Transfer Goal Independent Shower Transfer Goal Standby Assistance Days to Meet Goals 4 Frequency of Treatment Frequency Of Treatment Once a Day Treatment Plan OT Treatment Plan ADL Training,Functional Cognition Training,Functional Mobility,Patient/Family Education,Discharge Planning Discharge Recommendations OT Discharge Recommendations Home with 24/ Assist Available,Home Health Transportation Needs at Discharge Private Vehicle
[2022-08-20] MEDS: ACETAMINOPHEN 325 MG TABLET 650 MG PO (12:14)
--- NOTE | 2022-08-20 12:31 | PT.IPTN ---
Current Diagnoses Urinary tract infection, site not specified (08/18/22) Physical Therapy Treatment Note M2 PT-IP Current Condition Start: 08/19/22 12:49 Freq: NEEDED Status: Active Protocol: Document 08/19/22 11:55 AB (Rec: 08/19/22 13:00 AB [id number]) Physical Therapy Current Condition Current Condition Evaluation Date 08/19/22 Treatment Diagnosis UTI; acute metabolic encephalopathy; difficulty in walking Onset Date 08/18/22 M3 PT-IP Subjective Start: 08/19/22 12:49 Freq: NEEDED Status: Active Protocol: Document 08/20/22 12:11 LJ (Rec: 08/20/22 12:31 LJ [id number]) Subjective Physical Therapy Visit Type Type Treatment Note Visit Start Time 11:45 Visit Stop Time 12:03 Total Visit Minutes 18 Number of DEBONING TEAM LEADER Visits 1 Physical Therapy Visit Comments Patient Comments agreeable to do PT Therapy Pain Assessment Pain Present Pain Present Denied Pain M4 PT-IP Mobility and Gait Start: 08/19/22 12:49 Freq: NEEDED Status: Active Protocol: Document 08/20/22 12:11 LJ (Rec: 08/20/22 12:31 LJ [id number]) PT-Bed Mobility Assessment Supine to Sit Supine to Sit Standby Assistance Sit to Supine Sit to Supine Standby Assistance PT-Transfer Assessment Sit to and From Stand Sit to and from Stand Standby Assistance Equipment Transfer Assistive Device Gait Belt,4 Wheeled Walker Orthotic/Prosthetic Devices or Brace: No Transfers Transfer Destination Bed Transfer Technique ambulated Transfer Ability Level of Assist Standby Assistance Comments Mobility Comments Pt lying in bed. Willing to ambulate in hallway. Pt asked to put on shoes to walk in hallway. Pt able to don and doff shoes independently. Ambulated in hallway ~750' using 4WW. Pt had one small LOB which she scknowledged she didn't lift her foot enough. She ambulated up and down entire length of acute floor and around [facility] station. Pt returned to room, doffed shows and got back into bed independently. Bed alarm activated and pt given all needs within reach. Gait Assessment Gait Gait Assistance Required: Standby Assistance Distance (Feet) 700 Able to Maintain Weight Bearing Status Yes During Gait Assistive Devices Assistive Device Gait Belt,4 Wheeled Walker Orthotic/Prosthetic Devices or Brace: No Gait Deviations General Gait Pattern Decreased Stride Length, Decreased Feet Clearance Factors Limiting Gait Function Factors Limiting Gait Function Decreased Activity Tolerance, Poor Balance Stair Climbing Assessment Comments Stair Climbing Comments no stairs at son's house where she'll be staying PT-Balance Assessment Sitting Balance and Reactions Static Sitting Balance Ability Normal Dynamic Sitting Balance Ability Good Standing Balance and Reactions Static Standing Balance Ability Fair Dynamic Standing Balance Ability Poor Device Used without AD M5 PT-IP Objective Assessments Start: 08/19/22 12:49 Freq: NEEDED Status: Active Protocol: Document 08/19/22 11:55 AB (Rec: 08/19/22 13:00 AB [id number]) Orientation Orientation/Cognition Level of Alertness Alert Orientation Name,Place,Situation Language Function Ability Hard of Hearing Safety Awareness Decreased Safety Awareness Memory Description Short Term Impaired Gross Range of Motion Lower Extremity ROM Assessment Within Functional Limits Strength Lower Extremity Strength Hip 4-/5 Knee 4-/5 Muscle Tone Muscle Tone WNL Yes M6 PT-IP Treatment Start: 08/19/22 12:49 Freq: NEEDED Status: Active Protocol: Document 08/20/22 12:11 HAIDER (Rec: 08/20/22 12:31 [id number]) Physical Therapy Treatment Education Education Provided Safety M7 PT-IP Assessment and Plan Start: 08/19/22 12:49 Freq: NEEDED Status: Active Protocol: Document 08/20/22 12:11 (Rec: 08/20/22 12:31 [id number]) PT Summary Assessment and Plan Potential Rehabilitation Potential Good Status of Condition at Evaluation Stable Summary Impairments Pain,ROM,Strength,Balance, Coordination,Sensation,Tone, Cognition,Bed Mobility, Transfers,Gait,Activity Tolerance Progress Towards Goals Progressing Toward Goals,Safe For Discharge Assessment Summary pt requiring SBA with mobility using 4WW. pt will be staying with her son has her DIL to assist her when needed. pt will benefit from HHPT. Goals Bed Mobility Goal Independent Transfer Goal Independent,Four Wheeled Walker Gait Goal Independent,Four Wheel Walker Gait Distance 150 Other Goals improve ambulation without AD 100 ft mod I Days to Meet Goals 5 Frequency of Treatment Frequency Of Treatment Once a Day Treatment Plan Physical Therapy Treatment Plan Bed Mobility Training,Transfer Training,Gait Training, Therapeutic Exercise,Balance Retraining,Discharge Planning, Hot or Cold Pack,Neuromuscular Re-ed,Coordination Retraining Recommendations To Nursing Amount of Assist Needed 1 Person Assist Discharge Recommendations PT Discharge Recommendations Home with Assistance,Home Health Transportation Needs at Discharge Private Vehicle
--- NOTE | 2022-08-20 12:33 | CM.DPC ---
DCP Cont: Discussed patient during team rounds. Patient should be able to switch to oral antibiotics, per hospitalist, could possibly go home today. Patient does have family support. P: DCP to continue to follow closely for needs. Plan at this time is home when stable with family, possibly today. Alix Paredes RN/Carroting Machine Offbearer
--- NOTE | 2022-08-20 14:02 | P.DS_ITS ---
History of Present Illness History of Present Illness Date Patient Seen: 08/20/22 Chief complaint: confusion,hallucination,T-14 Narrative: Patient is a 87-year-old female history of CVA hypertension TIAs frequent UTIs presented today with hallucinations.? Apparently last night she saw many people in her house she called 911 no one was there.? She really has no pain.? She is very weak difficulty ambulating.? Came in with daughter who is a nurse.? Previously she had a UTI in April 2021 with similar symptoms.? She denies any abdominal pain nausea vomiting chest pain cough shortness of breath. No wheezes. No diaphoresis. Has some confusion. CT of the head in the ER showed no intracranial acute findings but does have maxillary sinus congestion Discharge Providers Provider Date of admission: 08/18/22 12:16 Discharge Date: 08/20/22 Primary care physician: Marcial Arellano DO Consults: 08/19/22 10:19 Consult to Occupational Therapy Evaluate & Treat Comment: Physician Instructions: Evaluate and treat Consult to Physical Therapy Evaluate & Treat Comment: Physician Instructions: Evaluate and Treat Discharge provider: Gilmer Castro DO Summary Hospital Course Discharge Diagnosis: 1. Urinary tract infection with hallucinations due to metabolic encephalopathy.? Treat with ceftriaxone 1 g IV every 24 hours.? Urine culture is contaminant only. We will transitioned to Augmentin only and do for the full 7 days of antibiotic treatment. No associated hallucinations continue to follow. 2. Concern for sinusitis on CT of the head.? Since discontinuing ceftriaxone will initiate Augmentin 500 mg/125 mg p.o. t.i.d. now and continue for 1 week. 3. Hyperlipidemia continue atorvastatin. 4. Anxiety/depression continue escitalopram. 5. Hypothyroidism.? Continue levothyroxine replacement.? TSH free T4 and free T3 were WNL. 6. Hypertension.? Continue to treat with lisinopril and verapamil. 7. Insomnia.? With temazepam at night.? 8. Decreased mobility with need for 1 person assist. Continue to monitor and if improves sufficiently by tomorrow or the next day will discharge to home. Hospital Course: Admitted for hallucinations at home and found to have UTI. Started on rocephin which was changed to augmentin x1 week. Head CT showed sinusitis which the augmentin will also cover. Her mentation cleared up and no futher hallucinations witnessed so she was discharged home after being cleared by PT. Time Spent with Patient Time spent: Greater than 30 minutes Exam Vital Signs (past 8 hours): - 08/20/22 07:45 Temperature 97.3 F L Pulse Rate 82 Respiratory Rate 18 Blood Pressure 172/82 H Pulse Oximetry 95 Oxygen Flow Rate 0 Oxygen Delivery Method Room Air Oxygen Flow Rate 0 Narrative Exam Narrative: GENERAL:? Alert and in no acute distress. HEENT: Head atraumatic,EOMI, pupils reactive, wearing glasses CARDIOVASCULAR: Regular rate and rhythm without murmurs, rubs or gallops. RESPIRATORY: Breath sounds equal bilaterally, no wheezes rales or rhonchi. ABDOMEN: Soft, nontender.? Normoactive bowel sounds all 4 quadrants.? EXTREMITIES: Normal range of motion, no clubbing or edema.? Neurovascularly intact NEUROLOGICAL: Alert and oriented x4.Normal gait and speech.? No bilateral lower extremity weakness in remains 1 person assist, paint and table edger strength equal and strong bilaterally SKIN: Warm, dry, no laceration, no petechiae, no rashes or lesions. Objective Labs 08/19/22 05:30 08/19/22 05:30 [facility] Social History household members: none Smoking Status: Former smoker alcohol intake: never Discharge Plan Discharge Plan Patient Disposition: Home Discharge orders & Medications Prescriptions: New amoxicillin-pot clavulanate [Augmentin] 500-125 mg Tablet 1 tab PO TID 6 Days Qty: 18 0RF Rx Instructions: start evening of 08/20 Continued aspirin [Adult Low Dose Aspirin] 81 mg tablet,delayed release (DR/EC) 81 mg PO DAILY atorvastatin 20 mg tablet 20 mg PO DAILY Label Comments: TAKE 1 TABLET BY MOUTH ONCE DAILY cholecalciferol (vitamin D3) 10 mcg (400 unit) tablet 10 mcg PO DAILY levothyroxine 50 mcg tablet 50 mcg PO DAILY Label Comments: TAKE 1 TABLET BY MOUTH ONCE DAILY lisinopril 20 mg tablet 10 mg PO DAILY Label Comments: TAKE 1/2 (ONE-HALF) TABLET BY MOUTH ONCE DAILY temazepam 7.5 mg capsule 7.5 mg PO BEDTIME Label Comments: TAKE 1 CAPSULE BY MOUTH ONCE DAILY AT BEDTIME NEEDED verapamil 120 mg tablet 120 mg PO DAILY Label Comments: TAKE 1 TABLET BY MOUTH ONCE DAILY escitalopram oxalate 10 mg tablet 10 mg PO DAILY Follow up/Referrals: Marcial Arellano DO [Primary Care Provider] - 2 Weeks ( office will call you with a 2 week follow up appointment ) Visit Report/Discharge Packet Instructions: DI for Sinusitis, DI for Urinary Tract Infection (UTI), DI for Encephalopathy, DI for Altered Mental Status Stand Alone Forms: Patient Portal/API, Stroke Signs & Symptoms Discharge Data Primary Care Provider: Marcial Arellano Quality VTE Deep Vein Thrombosis/Pulmonary Embolism Present on Admission: No
--- NOTE | 2022-08-20 19:31 | PC.NURSE ---
Discharge: Feels ready to d/c to home. Son here to pick her up. They [facility] and she can stay with them for a week if needed. Reviewed d/c packet. Questions answered. Pt d/c to home via auto with son.
== END 2022-08-20 16:15 | disposition home or self-care (01) | DRG 689 ==
LOC: ED 12:16 → AC 12:16
PROVIDERS: Admitting Provider Neuromusculoskeletal Medicine, Sports Medicine; Emergency Provider Emergency Medicine; Family Provider Internal Medicine; PCP Family Medicine; Referring Provider Emergency Medicine; Visit Provider Neuromusculoskeletal Medicine, Sports Medicine
DX: N39.0 Urinary tract infection, site not specified (principal); G93.41 Metabolic encephalopathy; J32.9 Chronic sinusitis, unspecified; E78.5 Hyperlipidemia, unspecified; F41.9 Anxiety disorder, unspecified; F32.A Depression, unspecified; E03.9 Hypothyroidism, unspecified; I10 Essential (primary) hypertension; G47.00 Insomnia, unspecified; Z66 Do not resuscitate; Z20.822 Contact with and (suspected) exposure to COVID-19; Z86.73 Personal history of transient ischemic attack (TIA), and cerebral infarction without residual deficits; Z87.891 Personal history of nicotine dependence
CPT/HCPCS: 36415; 70450; 71045; 80053; 81001; 82550; 83605; 83690; 84145; 84439; 84443; 84481; 84484; 85025; 85610; 85730; 87040; 87086; 87635; 93005; 96365; 96375; 97116; 97161; 97166; 97530; 97535; 99284; 99285; C9803; J0696; J1650; J2405

== ENCOUNTER 2023-07-09 09:39 | Emergency (ER) | payer MEDICARE, SELFPAY ==
[2023-07-09] VITALS (15 sets, daily range): BP systolic 143–199; BP diastolic 63–94; PULSE 69–89; RESP 16–96; TEMP 36.1–36.6; O2SAT 94–98; BMI 21.6
--- NOTE | 2023-07-09 09:48 | ED.PSYCH ---
HPI - Psych General Chief Complaint: Psychiatric Symptoms Stated Complaint: Hallucinations Time Seen by Provider: 07/09/23 09:48 History of Present Illness HPI Narrative: Patient 87 year lives alone history of CVA hyperlipidemia, hypertension, hypothyroid, presents today with ongoing hallucinations. She reports that she is had hallucinations for at least 6 months. She was seen evaluated here in July 2022 where she was having hallucinations and diagnosed with a UTI and admitted to the hospital. She says hallucinations have continued maybe off and on but have gotten worse. She states she can not take it any more. She reports that she sees people that she knows not there. She is really angry and yelling at them and they go away. She is not having auditory hallucinations. She has no suicidal or. She is not had any fever chills no chest pain shortness of breath abdominal pain nausea vomiting or other symptoms. It was set than possibly some medications were contributing to hallucinations so they have been some changes. Related Data Home Medications Medication Instructions Recorded Confirmed aspirin 81 mg tablet,delayed 81 mg PO DAILY 08/18/22 08/18/22 release (Adult Low Dose Aspirin) atorvastatin 20 mg tablet 20 mg PO DAILY 08/18/22 08/18/22 cholecalciferol (vitamin D3) 10 10 mcg PO DAILY 08/18/22 08/18/22 mcg (400 unit) tablet escitalopram oxalate 10 mg tablet 10 mg PO DAILY 08/18/22 08/18/22 levothyroxine 50 mcg tablet 50 mcg PO DAILY 08/18/22 08/18/22 lisinopril 20 mg tablet 10 mg PO DAILY 08/18/22 08/18/22 temazepam 7.5 mg capsule 7.5 mg PO BEDTIME 08/18/22 08/18/22 verapamil 120 mg tablet 120 mg PO DAILY 08/18/22 08/18/22 Previous Rx's Medication Instructions Recorded cephalexin 500 mg capsule 500 mg PO BID 5 days #10 caps 07/09/23 Allergies Allergy/AdvReac Type Severity Reaction Status Date / Time No Known Drug Allergies Allergy Verified 07/09/23 10:06 Patient History Social History household members: none Smoking Status: Former smoker alcohol intake: never Smoking Status: Former smoker alcohol intake frequency: 0-2 drinks per day Substance Use Type: does not use Exam Initial Vital Signs Initial Vital Signs: Vital Signs Temperature 97.9 F 07/09/23 09:40 Pulse Rate 88 07/09/23 09:40 Respiratory Rate 16 07/09/23 09:40 Blood Pressure 199/94 H 07/09/23 09:40 Pulse Oximetry 96 07/09/23 09:40 Oxygen Delivery Method Room Air 07/09/23 09:40 GENERAL: Alert pleasant 87 year female HEENT: Head atraumatic,EOMI, pupils reactive, face symmetric, moist mucous membranes CARDIOVASCULAR: Regular rate and rhythm without murmurs, rubs or gallops. RESPIRATORY: Breath sounds equal bilaterally, no wheezes rales or rhonchi. ABDOMEN: Soft, nontender. Normoactive bowel sounds all 4 quadrants. No guarding or rebound. EXTREMITIES: Normal range of motion, no clubbing or edema. Neurovascularly intact NEUROLOGICAL: Alert and oriented x4. Radio Time Sales Supervisor strength equal bilaterally no slurring of speech SKIN: Warm, dry, no laceration, no petechiae, no rashes or lesions. Course Orders Ordered: Discontinued Medications Ceftriaxone Sodium 1,000 mg/ (Sodium Chloride) 100 mls @ 200 mls/hr IV NOW ONE Stop: 07/09/23 12:07 Last Infusion: 07/09/23 13:18 Dose: Infused Documented By: Admin: 07/09/23 12:41 Dose: 200 mls/hr Documented By: COUNT INCLUDES THE [facility] Vital Signs Vital signs: Vital Signs - 8 hr 07/09/23 12:00 07/09/23 12:01 07/09/23 12:01 Temperature Pulse Rate 70 70 Respiratory Rate Blood Pressure 159/71 H Pulse Oximetry 94 95 Oxygen Delivery Method 07/09/23 12:30 07/09/23 12:31 07/09/23 12:31 Temperature Pulse Rate 69 72 Respiratory Rate Blood Pressure 190/75 H Pulse Oximetry 94 97 Oxygen Delivery Method 07/09/23 13:00 07/09/23 13:01 07/09/23 13:01 Temperature Pulse Rate 69 72 Respiratory Rate Blood Pressure 170/71 H Pulse Oximetry 94 95 Oxygen Delivery Method 07/09/23 14:33 Temperature 97.0 F L Pulse Rate 89 Respiratory Rate 96 H Blood Pressure 143/63 H Pulse Oximetry Oxygen Delivery Method Room Air MDM - Psych Lab Data 07/09/23 09:49 07/09/23 09:49 Labs: Lab Results 07/09/23 07/09/23 07/09/23 Range/Units 09:49 09:55 10:06 WBC 6.9 (4.5-11.0) X10^3/uL RBC 4.52 (4.0-5.2) X10^6/uL Hgb 14.0 (12.0-16.0) g/dL Hct 41.4 (36-46) % MCV 91.5 (80-100) fL MCH 30.9 (26-34) PG MCHC 33.8 (30-36) % RDW 14.7 (11.6-14.8) % Plt Count 293 (150-400) X10^3/uL Neut % (Auto) 60.7 (50-75) % Lymph % (Auto) 21.7 L (25-40) % Cloud % (Auto) 13.2 (3-14) % Eos % (Auto) 3.2 (2-4) % Baso % (Auto) 1.2 (0-2) % Neut # (Auto) 4200 (9853-9694) /uL Lymph # (Auto) 1500 (3013-7193) /uL Cloud # (Auto) 900 (0-900) /uL Eos # (Auto) 200 (0-450) /uL Baso # (Auto) 100 (0-100) /uL Sodium 137 (137-145) mmol/L Potassium 4.5 (3.4-5.1) mmol/L Chloride 105 (98-107) mmol/L Carbon Dioxide 28 (22-32) mmol/L BUN 21 H (7-17) mg/dL Creatinine 0.86 (0.52-1.04) mg/dL Estimated GFR > 60 (>60) mL/min BUN/Creatinine Ratio 24.4 H (6-22) Glucose 94 (80-110) mg/dL Lactate 1.8 (0.7-2.1) mmol/L Calcium 10.2 (8.4-10.2) mg/dL Total Bilirubin 0.7 (0.2-1.3) mg/dL AST 45 H (14-36) IU/L ALT 30 (<35) IU/L Alkaline Phosphatase 75 (38-126) U/L Total Protein 8.1 (6.3-8.2) g/dL Albumin 4.2 (3.5-5.0) g/dL Globulin 3.9 (1.7-4.1) g/dL Albumin/Globulin Ratio 1.1 (1.0-2.8) Procalcitonin 0.07 (<0.5) ng/mL TSH 2.39 (0.47-4.68) uIU/mL Urine Color Yellow Urine Appearance Clear Urine pH 7.0 (4.5-8.0) Ur Specific [place] 1.010 (1.000-1.035) Urine Protein Negative (Negative) Urine Glucose (UA) Negative (Negative) g/dL Urine Ketones Negative (NEGATIVE) Urine Occult Blood Negative (Negative) Urine Nitrate Negative (Negative) Urine Bilirubin Negative (NEGATIVE) Urine Urobilinogen 0.2 (0.2) E.U./dL Ur Leukocyte Esterase 1+ H (NEGATIVE) Urine RBC 0-1/hpf (0-5/HPF) Urine WBC 0-1/hpf (0-5/HPF) Ur Squamous Epith Cells 5-10 /hpf H (0-5/HPF) Urine Bacteria Occasional (0-1) (None) Ur Culture Indicated? Specimen cultured Imaging Data CT scan - head: Radiologist's Impression: PROCEDURE: CT HEAD/BRAIN WO CON INDICATIONS: Hallucination TECHNIQUE: Noncontrast 4.5 mm thick angled axial sections acquired from the foramen magnum to the vertex, with coronal and sagittal reformats. For radiation dose reduction, the following was used: automated exposure control, adjustment of mA and/or kV according to patient size. COMPARISON: [facility], CT, CT HEAD/BRAIN WO CON, 08/18/2022, 10:40. FINDINGS: Image quality: Diagnostic. CSF spaces: Basal cisterns are patent. No extra-axial fluid collections. The ventricles are symmetric in size and shape. Brain: No intracranial bleeds or masses. There is cerebral volume loss for age, with resultant ventricular and sulcal prominence. There are periventricular and deep white matter chronic small vessel ischemic changes. There is intracranial internal carotid artery atherosclerosis. Skull and face: Calvarium and visualized facial bones appear intact, without suspicious lesions. Sinuses: Visualized sinuses and mastoids are clear. IMPRESSION: No acute intracranial abnormality. Dictated by: Lukas Vazquez M.D. on 07/09/2023 at 10:13 MDM Narrative Medical decision making narrative: Patient overall appears well. Maybe having some hallucinations but not evident in the ED. Blood work has been reviewed clinically significant abnormality. She has no evidence of severe infection. She does have some few bacteria in her urine with some leukocytes but no nitrates. Difficult to tell if she is having UTI symptoms. However with increase in hallucinations think for to treat for UTI. She is given dose of Rocephin. No need for admission. Imaging today with a head CT which did not show any abnormalities. [id number] at bedside. She reports that she always has some hallucinations when she gets UTIs they get a little bit worse. Discharge Plan Departure Patient Disposition: Home Clinical Impression: Acute UTI, Hallucinations Instructions: DI for Urinary Tract Infection (UTI) Activity Restrictions/Additional Instructions: *You have been diagnosed with hallucinations, UTI *What to do: At this time blood work and CT of your head did not show any significant abnormalities. Have a very minor bladder infection. But you do not need to stay in the hospital for it. *Continue to take medications as directed Keflex 500 mg twice a day for 5 days0--> [facility] *Follow up with your primary care provider in 2-3 days or call [phone] *Return to ER if you should have increasing hallucinations confusion weakness fall or any new, worsening or concerning symptoms Prescriptions: New cephalexin 500 mg capsule 500 mg PO BID 5 Days Qty: 10 0RF No Action aspirin [Adult Low Dose Aspirin] 81 mg tablet,delayed release (DR/EC) 81 mg PO DAILY atorvastatin 20 mg tablet 20 mg PO DAILY Patient Comments: TAKE 1 TABLET BY MOUTH ONCE DAILY cholecalciferol (vitamin D3) 10 mcg (400 unit) tablet 10 mcg PO DAILY levothyroxine 50 mcg tablet 50 mcg PO DAILY Patient Comments: TAKE 1 TABLET BY MOUTH ONCE DAILY lisinopril 20 mg tablet 10 mg PO DAILY Patient Comments: TAKE 1/2 (ONE-HALF) TABLET BY MOUTH ONCE DAILY temazepam 7.5 mg capsule 7.5 mg PO BEDTIME Patient Comments: TAKE 1 CAPSULE BY MOUTH ONCE DAILY AT BEDTIME NEEDED verapamil 120 mg tablet 120 mg PO DAILY Patient Comments: TAKE 1 TABLET BY MOUTH ONCE DAILY escitalopram oxalate 10 mg tablet 10 mg PO DAILY Referrals: Marcial Arellano DO [Primary Care Provider] - Stand Alone Forms: Patient Portal/API
[2023-07-09 10:03] LABS: Add Manual Diff / Slide Review NO; Basophils Absolute Auto 100 /uL (0-100); Basophils Percent Auto 1.2 % (0-2); Eosinophils Absolute Auto 200 /uL (0-450); Eosinophils Percent Auto 3.2 % (2-4); Hematocrit 41.4 % (36-46); Lymphocytes Absolute Auto 1500 /uL (1100-4500); Lymphocytes Percent Auto 21.7 % (25-40); Mean Corpuscular HGB Conc 33.8 % (30-36); Mean Corpuscular Hemoglobin 30.9 PG (26-34); Mean Corpuscular Volume 91.5 fL (80-100); Monocytes Absolute Auto 900 /uL (0-900); Monocytes Percent Auto 13.2 % (3-14); Neutrophils Absolute Auto 4200 /uL (1500-7000); Neutrophils Percent Auto 60.7 % (50-75); Platelet Count 293 X10^3/uL (150-400); Red Blood Cell Count 4.52 X10^6/uL (4.0-5.2); Red Cell Distribution Width 14.7 % (11.6-14.8); White Blood Cell Count 6.9 X10^3/uL (4.5-11.0)
[2023-07-09 10:16] LABS: Appearance Urine UA CLEAR; Bilirubin Urine UA NEGATIVE (NEGATIVE); Color Urine UA YELLOW; Glucose Urine UA NEGATIVE (Negative); Ketones Urine UA NEGATIVE (NEGATIVE); Leukocyte Esterase Urine UA 1+ (NEGATIVE); Nitrite Urine UA NEGATIVE (Negative); Occult Blood Urine UA NEGATIVE (Negative); Protein Urine UA NEGATIVE (Negative); Urobilinogen Urine UA 0.2 E.U./dL (0.2)
[2023-07-09 10:20] LABS: Alanine Aminotransferase 30 IU/L (<35); Albumin 4.2 g/dL (3.5-5.0); Albumin Globulin Ratio 1.1 (1.0-2.8); Alkaline Phosphatase 75 U/L (38-126); Aspartate Aminotransferase 45 IU/L (14-36); BUN Creatinine Ratio 24.4 (6-22); Bilirubin Total 0.7 mg/dL (0.2-1.3); Blood Urea Nitrogen 21 mg/dL (7-17); Calcium 10.2 mg/dL (8.4-10.2); Carbon Dioxide 28 mmol/L (22-32); Chloride 105 mmol/L (98-107); Estimated Glomerular Filt Rate > 60 mL/min (>60); Globulin 3.9 g/dL (1.7-4.1); Glucose 94 mg/dL (80-110); HEMOLYSIS 40 (0-50); Potassium 4.5 mmol/L (3.4-5.1); Sodium 137 mmol/L (137-145); Total Protein 8.1 g/dL (6.3-8.2)
[2023-07-09 10:31] LABS: Bacteria Urine Occasional (0-1); Culture Indicated Urine Specimen Cultured; RBC Urine 0-1/HPF (0-5/HPF); Squamous Epithelial Cell Urine 5-10 /HPF (0-5/HPF); WBC Urine 0-1/HPF (0-5/HPF)
[2023-07-09 10:32] LABS: Lactate (Lactic Acid) 1.8 mmol/L (0.7-2.1)
[2023-07-09 10:36] LABS: Procalcitonin 0.07 ng/mL (<0.5)
[2023-07-09 11:39] LABS: Thyroid Stimulating Hormone 2.39 uIU/mL (0.47-4.68)
[2023-07-09] MEDS: cefTRIAXone 1,000 MG in SODIUM CHLORIDE 0.9% 100 ML 200 MG IV (12:41)
== END 2023-07-09 14:38 | disposition home or self-care (01) ==
PROVIDERS: Emergency Provider Emergency Medicine; Family Provider Internal Medicine; PCP Family Medicine
DX: N39.0 Urinary tract infection, site not specified (principal); R44.1 Visual hallucinations; Z87.891 Personal history of nicotine dependence
CPT/HCPCS: 36415; 70450; 80053; 81001; 83605; 84145; 84443; 85025; 87086; 96374; 99284; J0696

== ENCOUNTER 2023-10-24 12:46 | Inpatient (IN) | payer MEDICARE, SELFPAY ==
[2023-10-24] VITALS (16 sets, daily range): BP systolic 96–135; BP diastolic 51–72; PULSE 70–110; RESP 16–27; TEMP 36.2–36.6; O2SAT 92–98; BMI 20.7
--- NOTE | 2023-10-24 13:49 | DI.CT.S_ITS ---
PROCEDURE: CT CERVICAL SPINE WO CON INDICATIONS: fall TECHNIQUE: Noncontrast 3 mm thick sections acquired from the skull base to the T4 level. Sagittal and coronal reformats were then constructed. For radiation dose reduction, the following was used: automated exposure control, adjustment of mA and/or kV according to patient size. COMPARISON: None. FINDINGS: Image quality: Excellent. Bones: No fractures or dislocations. Straightening of normal cervical lordosis is seen. Loss of disc height, degenerative endplate changes and bilateral facet hypertrophic changes are noted throughout cervical spine more notably at C4-5 through C6-7 levels. Dorsal disc osteophyte complex formation at C5-6 and C6-7 levels are seen causing mild central canal stenosis and bilateral neural foraminal narrowing. Visualized superior ribs are intact. Soft tissues: Prevertebral soft tissues are normal in thickness. No paravertebral hematomas. No apical pneumothoraces. IMPRESSION: 1. No displaced fracture or traumatic subluxation. 2. Degenerative disc disease throughout cervical spine as above. Dictated by: Dominic Tovar M.D. on 10/24/2023 at 14:25 Approved by: Dominic Tovar M.D. on 10/24/2023 at 14:29
--- NOTE | 2023-10-24 13:49 | DI.CT.S_ITS ---
PROCEDURE: CT HEAD/BRAIN WO CON INDICATIONS: fall TECHNIQUE: Noncontrast 4.5 mm thick angled axial sections acquired from the foramen magnum to the vertex, with coronal and sagittal reformats. For radiation dose reduction, the following was used: automated exposure control, adjustment of mA and/or kV according to patient size. COMPARISON: [facility], CT, CT HEAD/BRAIN WO CON, 07/09/2023, 10:10. FINDINGS: Image quality: Diagnostic. CSF spaces: Basal cisterns are patent. No extra-axial fluid collections. The ventricles are symmetric in size and shape. Brain: No intracranial bleeds or masses. There is cerebral volume loss for age, with resultant ventricular and sulcal prominence. There are periventricular and deep white matter chronic small vessel ischemic changes. There is intracranial internal carotid artery atherosclerosis. Skull and face: Calvarium and visualized facial bones appear intact, without suspicious lesions. Sinuses: Visualized sinuses and mastoids are clear. IMPRESSION: No CT evidence of acute intracranial pathology. No significant changes from previous study. Dictated by: Dominic Tovar M.D. on 10/24/2023 at 14:30 Approved by: Dominic Tovar M.D. on 10/24/2023 at 14:30
[2023-10-24 14:02] LABS: Add Manual Diff / Slide Review NO; Basophils Absolute Auto 0 /uL (0-100); Basophils Percent Auto 0.3 % (0-2); Eosinophils Absolute Auto 100 /uL (0-450); Eosinophils Percent Auto 0.6 % (2-4); Hematocrit 40.1 % (36-46); Hemoglobin 13.2 g/dL (12.0-16.0); Lymphocytes Absolute Auto 1400 /uL (1100-4500); Lymphocytes Percent Auto 11.8 % (25-40); Mean Corpuscular HGB Conc 32.8 % (30-36); Mean Corpuscular Hemoglobin 30.8 PG (26-34); Mean Corpuscular Volume 93.9 fL (80-100); Monocytes Absolute Auto 300 /uL (0-900); Monocytes Percent Auto 2.3 % (3-14); Neutrophils Absolute Auto 10200 /uL (1500-7000); Platelet Count 335 X10^3/uL (150-400); Red Blood Cell Count 4.27 X10^6/uL (4.0-5.2); Red Cell Distribution Width 14.3 % (11.6-14.8); White Blood Cell Count 12.1 X10^3/uL (4.5-11.0)
[2023-10-24 14:08] LABS: Prothrombin Time 10.9 SECONDS (9.4-12.5)
[2023-10-24 14:12] LABS: Alanine Aminotransferase 19 IU/L (<35); Albumin 3.6 g/dL (3.5-5.0); Albumin Globulin Ratio 1.1 (1.0-2.8); Alkaline Phosphatase 70 U/L (38-126); Aspartate Aminotransferase 39 IU/L (14-36); BUN Creatinine Ratio 23.3 (6-22); Bilirubin Total 0.7 mg/dL (0.2-1.3); Blood Urea Nitrogen 38 mg/dL (7-17); Calcium 9.3 mg/dL (8.4-10.2); Carbon Dioxide 21 mmol/L (22-32); Chloride 107 mmol/L (98-107); Estimated Glomerular Filt Rate 30 mL/min (>60); Globulin 3.3 g/dL (1.7-4.1); Glucose 109 mg/dL (80-110); HEMOLYSIS < 15 (0-50); Lipase 83 U/L (23-300); Potassium 4.3 mmol/L (3.4-5.1); Sodium 135 mmol/L (137-145); Total Protein 6.9 g/dL (6.3-8.2)
[2023-10-24] MEDS: SODIUM CHLORIDE 0.9% 1,000 ML 150 ML IV (16:19)
--- NOTE | 2023-10-24 16:22 | ED.FALL ---
HPI - Fall General Chief Complaint: Fall Stated Complaint: Fall/hit head/ on thinners Time Seen by Provider: 10/24/23 14:47 Source: patient Mode of arrival: Ambulatory History of Present Illness HPI Narrative: This is an 88-year-old female who is brought in by her son who assists with history for increased confusion and a ground level fall. Patient has a history of dementia and hallucinations and reportedly hallucinates fairly frequently. Recently had a urinary tract infection and was started on antibiotic possibly Bactrim although he has not sure. She subsequently developed an allergic reaction of some type which was likely hives given that it was described as intensely pruritic. She was then placed on prednisone. After being placed on prednisone she developed insomnia and has not slept in 3 nights. Son reports increasing confusion, the patient has a ground level fall today she has not sure what happened although the son says it appeared that she fell backwards while standing facing her bed. Initially she had a headache and some nausea she has not been vomiting she has not had fevers she does not have chest pain or shortness of breath. She has not on full anticoagulation. According to her son who accompanied her she is presently taking an antibiotic for urinary tract infection although neither she nor her son are aware of what antibiotic that is. I was not able to locate records in our system. Related Data Home Medications Medication Instructions Recorded Confirmed aspirin 81 mg tablet,delayed 81 mg PO DAILY 08/18/22 08/18/22 release (Adult Low Dose Aspirin) atorvastatin 20 mg tablet 20 mg PO DAILY 08/18/22 08/18/22 cholecalciferol (vitamin D3) 10 10 mcg PO DAILY 08/18/22 08/18/22 mcg (400 unit) tablet escitalopram oxalate 10 mg tablet 10 mg PO DAILY 08/18/22 08/18/22 levothyroxine 50 mcg tablet 50 mcg PO DAILY 08/18/22 08/18/22 lisinopril 20 mg tablet 10 mg PO DAILY 08/18/22 08/18/22 temazepam 7.5 mg capsule 7.5 mg PO BEDTIME 08/18/22 08/18/22 verapamil 120 mg tablet 120 mg PO DAILY 08/18/22 08/18/22 famotidine 20 mg tablet 20 mg PO BID 10/24/23 10/24/23 fexofenadine 60 mg tablet 60 mg PO BID 10/24/23 10/24/23 prednisone 20 mg tablet 20 mg PO DAILY 10/24/23 10/24/23 Allergies Allergy/AdvReac Type Severity Reaction Status Date / Time doxycycline Allergy Rash Verified 10/24/23 13:04 nitrofurantoin Allergy Rash Verified 10/24/23 13:04 [From Macrobid] Sulfa (Sulfonamide Allergy Rash Verified 10/24/23 13:04 Antibiotics) sulfamethoxazole Allergy Rash Verified 10/24/23 13:04 [From Bactrim] trimethoprim [From Bactrim] Allergy Rash Verified 10/24/23 13:04 Patient History Social History household members: none Smoking Status: Former smoker alcohol intake: never Smoking Status: Former smoker alcohol intake frequency: 0-2 drinks per day Substance Use Type: does not use Exam Narrative Exam Narrative: Elderly female who is alert and appears to be in no distress. Alert, talkative and tangential, endorsing hallucinations, does not answer orientation questions appropriately HEENT: Normocephalic, atraumaitic moist mucus membranes Neck: Supple no midline tenderness Lungs: Clear to ascultaion, no respiratory distress Heart: Regular rhythm and rate no murmur Abdomen: Normal bowel sounds, soft and nontender. No CVAT Extremeties: Full range of motion no deformity Neuro: Alert and oriented, normal speech moves x4 Skin, appears to have a fading urticarial rash Initial Vital Signs Initial Vital Signs: Vital Signs Temperature 97.8 F 10/24/23 12:51 Pulse Rate 110 H 10/24/23 12:51 Respiratory Rate 18 10/24/23 12:51 Blood Pressure 102/72 10/24/23 12:51 Pulse Oximetry 96 10/24/23 12:51 Oxygen Delivery Method Room Air 10/24/23 12:51 Course Orders Ordered: ED Orders 10/24/23 13:46 Complete Blood Count AUTO DIFF Stat Comprehensive Metabolic Panel Stat Lipase Stat Prothrombin Time INR Stat 10/24/23 13:49 CT cervical spine wo con Stat CT head/brain wo con Stat 10/24/23 15:47 EKG-12 Lead Stat 10/24/23 16:14 UA Complete [Urinalysis and Microscopic] Stat Sodium Chloride (Normal Saline 0.9%) 1,000 mls @ 150 mls/hr IV CONT CAROLE Last Admin: 10/24/23 16:19 Dose: 150 mls/hr Documented By: NICO Ondansetron HCl (Ondansetron 4 Mg Odt) 4 mg PO NOW PRN PRN Reason: Nausea And Vomiting Ondansetron HCl (Ondansetron 4 Mg/2 Ml Inj) 4 mg IV NOW PRN PRN Reason: Nausea And Vomiting Consultations Consultation #1: At 4:25 a.m., discussed with hospitalist Dr. Doshi who accepts admission Vital Signs Vital signs: Vital Signs - 8 hr 10/24/23 12:51 10/24/23 13:52 Temperature 97.8 F Pulse Rate 110 H 77 Respiratory Rate 18 17 Blood Pressure 102/72 107/55 L Pulse Oximetry 96 98 Oxygen Delivery Method Room Air - Fall Lab Data Lab results narrative: CBC shows a white count of 12.1, likely related to steroids otherwise unremarkable, CMP her creatinine is 1.63, I note that in June 2023 creatinine was 0.86 indicating an acute kidney injury 10/24/23 13:46 10/24/23 13:46 Labs: Lab Results 10/24/23 Range/Units 13:46 WBC 12.1 H (4.5-11.0) X10^3/uL RBC 4.27 (4.0-5.2) X10^6/uL Hgb 13.2 (12.0-16.0) g/dL Hct 40.1 (36-46) % MCV 93.9 (80-100) fL MCH 30.8 (26-34) PG MCHC 32.8 (30-36) % RDW 14.3 (11.6-14.8) % Plt Count 335 (150-400) X10^3/uL Neut % (Auto) 85.0 H (50-75) % Lymph % (Auto) 11.8 L (25-40) % [place] % (Auto) 2.3 L (3-14) % Eos % (Auto) 0.6 L (2-4) % Baso % (Auto) 0.3 (0-2) % Neut # (Auto) 44991 H (0215-9263) /uL Lymph # (Auto) 1400 (9936-3908) /uL [place] # (Auto) 300 (0-900) /uL Eos # (Auto) 100 (0-450) /uL Baso # (Auto) 0 (0-100) /uL PT 10.9 (9.4-12.5) SECONDS INR 1.0 (0.9-1.3) Sodium 135 L (137-145) mmol/L Potassium 4.3 (3.4-5.1) mmol/L Chloride 107 (98-107) mmol/L Carbon Dioxide 21 L (22-32) mmol/L BUN 38 H (7-17) mg/dL Creatinine 1.63 H (0.52-1.04) mg/dL Estimated GFR 30 L (>60) mL/min BUN/Creatinine Ratio 23.3 H (6-22) Glucose 109 (80-110) mg/dL Calcium 9.3 (8.4-10.2) mg/dL Total Bilirubin 0.7 (0.2-1.3) mg/dL AST 39 H (14-36) IU/L ALT 19 (<35) IU/L Alkaline Phosphatase 70 (38-126) U/L Total Protein 6.9 (6.3-8.2) g/dL Albumin 3.6 (3.5-5.0) g/dL Globulin 3.3 (1.7-4.1) g/dL Albumin/Globulin Ratio 1.1 (1.0-2.8) Lipase 83 (23-300) U/L Imaging Data CT scan - head: My Impression: Independently reviewed CT head, no acute findings Radiologist's Impression: Radiologist report no acute abnormality CT - cervical spine: My Impression: Independently reviewed CT cervical spine, no acute findings Radiologist's Impression: Radiologist report reviewed, no acute abnormality ECG Data Interpretation: ECG shows normal sinus rhythm there are T-wave inversions in V1 through V4 no acute ST elevation intervals are normal, no old tracing available for comparison MDM Narrative Medical decision making narrative: 80-year-old female with some underlying dementia presenting with increased confusion and acute kidney injury. Appears to be a metabolic encephalopathy possibly related to prednisone that the patient was given for an allergic reaction to an antibiotic, possibly related to her urinary tract infection. I do not have urine culture results available for review on this patient. I have ordered a cath UA to assess for ongoing infection, she is on antibiotics although it has not clear what antibiotics she is on. Given her fall, increased confusion and acute kidney injury, I think she is appropriate to admit to the hospitalist service. I have ordered IV hydration. She has not febrile she has not hypotensive I considered but do not suspect sepsis. No focal neurologic findings I do not think that she has a stroke today. Discharge Plan Departure Patient Disposition: Admitted as Observation Clinical Impression: Acute metabolic encephalopathy
[2023-10-24 16:56] LABS: Appearance Urine UA CLEAR; Bilirubin Urine UA NEGATIVE (NEGATIVE); Color Urine UA YELLOW; Glucose Urine UA NEGATIVE (Negative); Ketones Urine UA NEGATIVE (NEGATIVE); Leukocyte Esterase Urine UA NEGATIVE (NEGATIVE); Nitrite Urine UA NEGATIVE (Negative); Occult Blood Urine UA NEGATIVE (Negative); Protein Urine UA NEGATIVE (Negative); Urobilinogen Urine UA 0.2 E.U./dL (0.2)
[2023-10-24 17:09] LABS: Bacteria Urine Occasional (0-1); Culture Indicated Urine Cult Not Indicated; RBC Urine None Seen (0-5/HPF); Squamous Epithelial Cell Urine 0-1 /HPF (0-5/HPF); Urine Volume 10mL (spun); WBC Urine 0-1/HPF (0-5/HPF)
--- NOTE | 2023-10-24 17:32 | PC.NURSE ---
GCS 14; baseline confusion. No acute changes during stay.
--- NOTE | 2023-10-24 17:35 | P.HP_ITS ---
History of Present Illness History of Present Illness Date Patient Seen: 10/24/23 Time Patient Seen: 17:35 Chief complaint: Fall/hit head/ on thinners Narrative: This is an 88-year-old female admitted with increased confusion and weakness. She has Alzheimer's dementia, hypertension, hypothyroidism and depression and was recently treated for a UTI with antibiotics that produced a hive reaction. She was then placed on prednisone and has not been able to sleep for 2-3 nights with increasing hallucinations and confusion at home. She is admitted for stabilization. [facility] Medical History (Updated 10/24/23 @ 17:40 by Spring Doshi MD) Depression Acquired hypothyroidism Steroid-induced psychosis ANA ROSA (acute kidney injury) Alzheimer's dementia Hypertension Surgical History (Updated 10/24/23 @ 17:44 by Spring Doshi MD) History of bilateral knee replacement Social History household members: none Smoking Status: Former smoker alcohol intake: never Comment: Her backup decision maker is her son. Meds Home Medications and Allergies Home Medications Medication Instructions Recorded Confirmed Type aspirin 81 mg tablet,delayed 81 mg PO DAILY 08/18/22 08/18/22 History release (Adult Low Dose Aspirin) atorvastatin 20 mg tablet 20 mg PO DAILY 08/18/22 08/18/22 History cholecalciferol (vitamin D3) 10 10 mcg PO DAILY 08/18/22 08/18/22 History mcg (400 unit) tablet escitalopram oxalate 10 mg tablet 10 mg PO DAILY 08/18/22 08/18/22 History levothyroxine 50 mcg tablet 50 mcg PO DAILY 08/18/22 08/18/22 History lisinopril 20 mg tablet 10 mg PO DAILY 08/18/22 08/18/22 History temazepam 7.5 mg capsule 7.5 mg PO BEDTIME 08/18/22 08/18/22 History verapamil 120 mg tablet 120 mg PO DAILY 08/18/22 08/18/22 History famotidine 20 mg tablet 20 mg PO BID 10/24/23 10/24/23 History fexofenadine 60 mg tablet 60 mg PO BID 10/24/23 10/24/23 History prednisone 20 mg tablet 20 mg PO DAILY 10/24/23 10/24/23 History Allergies Allergy/AdvReac Type Severity Reaction Status Date / Time doxycycline Allergy Rash Verified 10/24/23 13:04 nitrofurantoin Allergy Rash Verified 10/24/23 13:04 [From Macrobid] Sulfa (Sulfonamide Allergy Rash Verified 10/24/23 13:04 Antibiotics) sulfamethoxazole Allergy Rash Verified 10/24/23 13:04 [From Bactrim] trimethoprim [From Bactrim] Allergy Rash Verified 10/24/23 13:04 Review of Systems Review of Systems Narrative: Positive for hives, confusion and insomnia. Negative for fevers, chills, sweats, chest pain, abdominal pain, dysuria, hematuria, bleeding, rashes, joint pain, sore throat, headache, new allergies. Exam Vital Signs (past 8 hours): - 10/24/23 12:51 10/24/23 13:52 10/24/23 13:53 Temperature 97.8 F Pulse Rate 110 H 77 77 Respiratory Rate 18 17 19 Blood Pressure 102/72 107/55 L Pulse Oximetry 96 98 98 Oxygen Delivery Method Room Air 10/24/23 13:53 10/24/23 14:00 10/24/23 14:12 Temperature Pulse Rate Respiratory Rate Blood Pressure 107/55 L 130/66 Pulse Oximetry 97 Oxygen Delivery Method 10/24/23 14:12 10/24/23 14:30 10/24/23 14:30 Temperature Pulse Rate 79 70 Respiratory Rate 24 19 Blood Pressure 112/53 L Pulse Oximetry 95 97 Oxygen Delivery Method 10/24/23 15:00 10/24/23 15:00 10/24/23 15:30 Temperature Pulse Rate 74 Respiratory Rate 18 Blood Pressure 114/56 L 109/70 Pulse Oximetry 95 Oxygen Delivery Method 10/24/23 15:30 10/24/23 16:00 10/24/23 16:00 Temperature Pulse Rate 78 76 Respiratory Rate 27 H 20 Blood Pressure 106/51 L Pulse Oximetry 96 Oxygen Delivery Method 10/24/23 16:30 10/24/23 16:30 10/24/23 16:45 Temperature Pulse Rate 76 87 Respiratory Rate 21 20 Blood Pressure 112/52 L Pulse Oximetry 97 97 Oxygen Delivery Method Room Air 10/24/23 17:10 Temperature 97.9 F Pulse Rate 85 Respiratory Rate 16 Blood Pressure 111/57 L Pulse Oximetry 96 Oxygen Delivery Method Oxygen Delivery Method Room Air Narrative Exam Narrative: She is alert and oriented to her name. No apparent distress. Easily confused and anxious. Pupils are equally round and reactive to light and accommodation. Extra ocular muscles are intact. Sclerae are pink and not icteric. Throat looks normal. No lymph nodes are felt head, neck, supraclavicular area. There is no thyromegaly. JVD is less than 6 cm. No carotid bruits are heard. Heart is regular rate and rhythm with murmur. Lungs are clear to auscultation bilaterally. Abdomen is soft, bowel sounds positive, nontender, no organomegaly. Extremities have no ankle edema. Skin has no rash or jaundice. There are well-healed vertical scars over both knee replacements. Neurological exam: There is no tremor. The patient is confused. Motor function is 3/5 throughout. Cranial nerves 2-12 test intact. Objective Labs 10/24/23 13:46 10/24/23 13:46 Labs: Laboratory Results - last 24 hr 10/24/23 10/24/23 13:46 16:45 WBC 12.1 H RBC 4.27 Hgb 13.2 Hct 40.1 MCV 93.9 MCH 30.8 MCHC 32.8 RDW 14.3 Plt Count 335 Neut % (Auto) 85.0 H Lymph % (Auto) 11.8 L [place] % (Auto) 2.3 L Eos % (Auto) 0.6 L Baso % (Auto) 0.3 Neut # (Auto) 91816 H Lymph # (Auto) 1400 [place] # (Auto) 300 Eos # (Auto) 100 Baso # (Auto) 0 PT 10.9 INR 1.0 Sodium 135 L Potassium 4.3 Chloride 107 Carbon Dioxide 21 L BUN 38 H Creatinine 1.63 H Estimated GFR 30 L BUN/Creatinine Ratio 23.3 H Glucose 109 Calcium 9.3 Total Bilirubin 0.7 AST 39 H ALT 19 Alkaline Phosphatase 70 Total Protein 6.9 Albumin 3.6 Globulin 3.3 Albumin/Globulin Ratio 1.1 Lipase 83 Urine Color Yellow Urine Appearance Clear Urine pH 6.0 Ur Specific [place] 1.010 Urine Protein Negative Urine Glucose (UA) Negative Urine Ketones Negative Urine Occult Blood Negative Urine Nitrate Negative Urine Bilirubin Negative Urine Urobilinogen 0.2 Ur Leukocyte Esterase Negative Urine RBC None seen Urine WBC 0-1/hpf Ur Squamous Epith Cells 0-1 /hpf Urine Bacteria Occasional (0-1) Ur Culture Indicated? Cult not indicated Vol Urine Centrifuged 10ml (spun) Assessment & Plan Assessment & Plan narrative: This is an 88-year-old female with Alzheimer's dementia, hypertension, hypothyroidism and depression who was recently treated for a UTI with antibiotics that produced a hive reaction. She was then placed on prednisone and has not been able to sleep for 2-3 nights with increasing hallucinations and confusion at home. She is admitted for stabilization. Alzheimer's dementia with acute delirium/encephalopathy of steroid treatment. -patient unable to sleep for 2-3 nights after beginning prednisone or urticaria. -acute delirium/encephalopathy and hallucinations reported. -admitted for work-up, clearing, stabilization and possible placement. -present. Rule out recurrent UTI. Head CT negative for acute bleed. Recent urinary tract infection -repeat cath UA pending. Acute kidney injury -creatinine has risen from 0.86 at baseline up to 1.63 now. -treat with IV fluids and follow. Recent urticarial antibiotic response -likely from sulfa? She and her son both do not know what she was taking but it was a twice a day medication. Hypothyroidism Continue levothyroxine Hypertension Continue lisinopril and verapamil Depression -holding escitalopram until mentation improves. Lovenox for DVT prevention Her son is her backup decision maker.
[2023-10-25] VITALS (7 sets, daily range): BP systolic 110–142; BP diastolic 52–69; PULSE 80–112; RESP 16–17; TEMP 36.3–36.6; O2SAT 94–96
[2023-10-25] MEDS: SODIUM CHLORIDE 0.9% 1,000 ML 150 ML IV ×3 (01:06→14:18)
--- NOTE | 2023-10-25 01:48 | PC.NURSE ---
^ left side of back/arm ^ abdomen
--- NOTE | 2023-10-25 01:49 | PC.NURSE ---
Addendum entered by Leona Villalobos R.N. 10/25/23 06:15: Patient has been hallucinating all night and has not slept. Attempting to get out of bed frequently, stating that she wants to leave this place. Notified MD Persaud, 2.5mg IV Valium ordered Original Note: Patient is alert, oriented to self and aware she is in the hospital, however is very confused and is hallucinating. Patient states that she sees insects and people in the room & ceiling, patient is aware she is hallucinating, stating I see things that aren't there. Her hallucinations appear to be mostly pleasant, as patient is having conversations alone in the room and laughing. Patient's behavior changes erratically, becomes agitated and tells staff to go away at times. Although she is mostly cooperative with care. Vital signs are stable, patient denies pain. Stand-pivot w/ 2PA to BSC. Patient removed IV, was unable to obtain after multiple attempts. Ultrasound guided PIV placed per ED RN. IVF infusing as ordered. Fall precautions in place. Plan of care ongoing.
[2023-10-25 05:24] LABS: Add Manual Diff / Slide Review NO; Basophils Absolute Auto 0 /uL (0-100); Basophils Percent Auto 0.3 % (0-2); Eosinophils Absolute Auto 0 /uL (0-450); Eosinophils Percent Auto 0.4 % (2-4); Hematocrit 42.5 % (36-46); Hemoglobin 13.9 g/dL (12.0-16.0); Lymphocytes Absolute Auto 1400 /uL (1100-4500); Lymphocytes Percent Auto 13.5 % (25-40); Mean Corpuscular HGB Conc 32.8 % (30-36); Mean Corpuscular Volume 94.5 fL (80-100); Monocytes Absolute Auto 200 /uL (0-900); Monocytes Percent Auto 2.2 % (3-14); Neutrophils Absolute Auto 8500 /uL (1500-7000); Neutrophils Percent Auto 83.6 % (50-75); Platelet Count 359 X10^3/uL (150-400); Red Blood Cell Count 4.49 X10^6/uL (4.0-5.2); White Blood Cell Count 10.2 X10^3/uL (4.5-11.0)
[2023-10-25 05:37] LABS: Alanine Aminotransferase 16 IU/L (<35); Albumin 2.9 g/dL (3.5-5.0); Alkaline Phosphatase 64 U/L (38-126); Aspartate Aminotransferase 40 IU/L (14-36); BUN Creatinine Ratio 26.5 (6-22); Bilirubin Total 0.8 mg/dL (0.2-1.3); Blood Urea Nitrogen 26 mg/dL (7-17); Calcium 8.3 mg/dL (8.4-10.2); Carbon Dioxide 18 mmol/L (22-32); Chloride 114 mmol/L (98-107); Estimated Glomerular Filt Rate 56 mL/min (>60); Glucose 108 mg/dL (80-110); HEMOLYSIS < 15 (0-50); Potassium 4.3 mmol/L (3.4-5.1); Sodium 138 mmol/L (137-145); Total Protein 5.9 g/dL (6.3-8.2)
[2023-10-25] MEDS: diazePAM 10 MG/2 ML SYRINGE 2.5 MG IV (06:40)
--- NOTE | 2023-10-25 08:12 | PC.NURSE ---
Addendum entered by Marianne Hernandez R.N. 10/25/23 18:20: Patient pulled out her iv, talked to and we can keep the iv out. She can have haldol IM if needed. Patient has been agitated with staff and she will swing at you if things do not go her way. She does have dementia. Addendum entered by Marianne Hernandez R.N. 10/25/23 09:02: Patient given 2mg of iv haldol and she is resting comfortably, patient not interested in eating or taking her medications at this time. She was only interested in leaving the hospital. Will try again later. Original Note: Assess- Patient is alert and oriented x1 (only to self). She is awake, valium only helped patient sleep for about an hour. She is getting up to use the commode now and does have ivf infusing, NS at 150cc/hr. She is also tolertating this well. Patient had an allergic reaction to something and has large red and raised hives to her arms,neck, and torso. She is not itching at this time. She is pulling at her lines and keeps saying that she wants to go home and trying to get up.
[2023-10-25] MEDS: HALOPERIDOL 5 MG/ML VIAL 2 MG IV (08:25)
--- NOTE | 2023-10-25 08:27 | PM.PN.1 ---
Subjective Subjective Interval history: She is seen today to follow-up her dementia, confusion and hallucinations. She is slowly catching up on her sleep after having been sleepless for 2-3 nights due to prednisone. The rash is still present on small areas of her back but has resolved on her arms. She required a small dose of Haldol this morning to settle down after not responding to Valium. It looks like it will take few days to get her back on a normal sleep-wake cycle. Exam Vital Signs (past 8 hours): - 10/25/23 03:48 Temperature 97.7 F Pulse Rate 80 Respiratory Rate 17 Blood Pressure 141/56 H Pulse Oximetry 94 Oxygen Flow Rate 0 Oxygen Delivery Method Room Air Oxygen Flow Rate 0 Narrative Exam Narrative: She is sleeping after a long night of restlessness so is not disturbed. No apparent distress. Heart is regular rate and rhythm without murmur Lungs are clear to auscultation bilaterally. Extremities have no ankle edema. Objective Labs 10/25/23 05:05 10/25/23 05:05 Labs: Laboratory Results - last 24 hr 10/24/23 10/24/23 10/25/23 13:46 16:45 05:05 WBC 12.1 H 10.2 RBC 4.27 4.49 Hgb 13.2 13.9 Hct 40.1 42.5 MCV 93.9 94.5 MCH 30.8 31.0 MCHC 32.8 32.8 RDW 14.3 14.0 Plt Count 335 359 Neut % (Auto) 85.0 H 83.6 H Lymph % (Auto) 11.8 L 13.5 L [place] % (Auto) 2.3 L 2.2 L Eos % (Auto) 0.6 L 0.4 L Baso % (Auto) 0.3 0.3 Neut # (Auto) 96425 H 8500 H Lymph # (Auto) 1400 1400 [place] # (Auto) 300 200 Eos # (Auto) 100 0 Baso # (Auto) 0 0 PT 10.9 INR 1.0 Sodium 135 L 138 Potassium 4.3 4.3 Chloride 107 114 H Carbon Dioxide 21 L 18 L BUN 38 H 26 H Creatinine 1.63 H 0.98 Estimated GFR 30 L 56 L BUN/Creatinine Ratio 23.3 H 26.5 H Glucose 109 108 Calcium 9.3 8.3 L Total Bilirubin 0.7 0.8 AST 39 H 40 H ALT 19 16 Alkaline Phosphatase 70 64 Total Protein 6.9 5.9 L Albumin 3.6 2.9 L Globulin 3.3 3.0 Albumin/Globulin Ratio 1.1 1.0 Lipase 83 Urine Color Yellow Urine Appearance Clear Urine pH 6.0 Ur Specific [place] 1.010 Urine Protein Negative Urine Glucose (UA) Negative Urine Ketones Negative Urine Occult Blood Negative Urine Nitrate Negative Urine Bilirubin Negative Urine Urobilinogen 0.2 Ur Leukocyte Esterase Negative Urine RBC None seen Urine WBC 0-1/hpf Ur Squamous Epith Cells 0-1 /hpf Urine Bacteria Occasional (0-1) Ur Culture Indicated? Cult not indicated Vol Urine Centrifuged 10ml (spun) [facility] Medical History (Updated 10/24/23 @ 17:40 by Spring Doshi MD) Depression Acquired hypothyroidism Steroid-induced psychosis ANA ROSA (acute kidney injury) Alzheimer's dementia Hypertension Surgical History (Updated 10/24/23 @ 17:44 by Spring Doshi MD) History of bilateral knee replacement Social History household members: none Smoking Status: Former smoker alcohol intake: never Assessment & Plan Assessment & Plan narrative: This is an 88-year-old female with Alzheimer's dementia, hypertension, hypothyroidism and depression who was recently treated for a UTI with antibiotics that produced a hive reaction. She was then placed on prednisone and was not able to sleep for 2-3 nights with increasing hallucinations and confusion at home. She was admitted for stabilization. Alzheimer's dementia with acute delirium/encephalopathy of steroid treatment. -patient unable to sleep for 2-3 nights after beginning prednisone for urticaria. -acute delirium/encephalopathy and hallucinations reported. -admitted for work-up, clearing, stabilization and possible placement. -Ruled out recurrent UTI. Head CT negative for acute bleed. -Useing Zyprexa and Haldol sparingly to encourage return to normal sleep wake cycle Recent urinary tract infection -repeat UA is normal Acute kidney injury -creatinine has risen from 0.86 at baseline up to 1.63 and then back down to 0.98 now. -resolved with IV fluids Recent urticarial antibiotic response -likely from sulfa? She and her son both do not know what she was taking but it was a twice a day medication. Hypothyroidism Continue levothyroxine Hypertension Continue lisinopril and verapamil Depression -holding escitalopram until mentation improves. Lovenox for DVT prevention Her son is her backup decision maker.
--- NOTE | 2023-10-25 09:30 | CM.DANOTE ---
Initial DCP Assessment Visit Note Reviewed EMR and team rounds for status updates. Went to meet with pt at bedside, she was found to be sleeping deeply, appearing comfortable at this time. Called and spoke to pt's son, Laurent, to obtain baseline functional status and preferences for d/c plan. Family will also plan on transporting her back home once she's medically cleared for d/c. Payor: Medicare PCP: Dr. Arellano Pt is a 88 year-old F with a PMH of Alzheimer's Dementia, hypertension, hypothyroidism, and depression. She recently had a UTI, was treated with antibiotics which resulted in an allergic reaction and hives. She was then started on Prednisone, which resulted in her not sleeping for 2-3 days and having hallucinations. Per family, pt lives modified independently in senior apartments in [place]. Family is currently working on hiring in-home caregivers due to pt's worsening dementia. Family are very involved and visit her often. Her son Laurent will plan on staying with her for a few days when she initially discharges home in order to make sure she is safe until a hired cg can start. She was started on IV fluids, was given Haldol this am as she was pulling at her lines earlier. Her grandson is present at bedside now, offering care and support. Discharge will likely be on Thursday, DCP will continue to follow and assist with any further evolving d/c needs. Discharge Planning/Care Management CM Discharge Assessment Start: 10/25/23 09:27 Freq: Status: Active Protocol: Document 10/25/23 09:27 DPL (Rec: 10/25/23 09:29 DPL [id number]) Discharge Planning Assessment Assigned [employer]ator KARLEY Machado Advance Directives? Yes: plus DANIEL Advance Directives on File Yes History Provided By Medical Record Expected Length of Stay 2 Has Patient been admitted in last 30 No days? Prior Living Arrangements Apartment/Condo Household Members none Type of transporation used prior to Relies on Others admit Willing to Return to Facility? Yes Independent with ADL's No: Modified independent w/ support. Is patient alert and oriented? No: Pt was found sleeping at the time of this visit. Needs Assistance With Bathing,Managing Medications, Home Chores / Shopping Caregiver for Another No Comment N/A Comment Patient uses four wheel walker Comment As long as mentation improves, she lives alone. Discharge Plan Home Transportation Arrangement Family or friends. Referrals Initiated Other Additional Comment May consider home health if needed, will see how she does here in the hospital. Review Status In Process Please Provide Date Initial DC 10/25/23 Assessment Was Performed
[2023-10-25] MEDS: LORATADINE 10 MG TABLET PO (10:25)
[2023-10-25] MEDS: FAMOTIDINE 20 MG TABLET PO (10:25)
[2023-10-25] MEDS: ENOXAPARIN 40 MG/0.4 ML SYRINGE SUBCUT (10:25)
[2023-10-25] MEDS: ASPIRIN EC 81 MG TABLET PO (10:25)
[2023-10-25] MEDS: VERAPAMIL 80 MG TABLET 40 MG PO ×2 (10:26→20:06)
--- NOTE | 2023-10-25 10:29 | PT-IP ANOTE ---
PT ordered received and PT reviewed chart and pt discussed in rounds. Pt sedated after agitation and no rest and requested that PT hold this a.m. Will con't to monitor and con't PT efforts as appropriate.
[2023-10-25] MEDS: lisinopriL 20 MG TABLET 10 MG PO (10:32)
[2023-10-25] MEDS: LEVOTHYROXINE 50 MCG TABLET PO (10:38)
--- NOTE | 2023-10-25 15:06 | PT-IP ANOTE ---
PT checks on pt in the afternoon. She is awake and very confused. PT offers PT, getting OOB and pt con't to be confused and declines. Will con't PT efforts next date.
[2023-10-25] MEDS: ATORVASTATIN 20 MG TABLET PO (20:06)
[2023-10-25] MEDS: OLANZapine 2.5 MG TABLET 5 MG PO (21:29)
[2023-10-25] MEDS: HALOPERIDOL 5 MG/ML VIAL 2 MG IM (22:29)
--- NOTE | 2023-10-25 22:46 | PC.NURSE ---
Addendum entered by Leona Villalobos R.N. 10/26/23 02:30: Patient increasingly confused throughout the night. Attempting to get OOB, throwing items in room. IM Haldol given. Original Note: production shift supervisor: Patient was calm & compliant w/ care at start of shift. Accurately stated name, birthday, aware she is in the hospital, & year. Unsure of situation. Patient appeared to experience more intense hallucinations at 2100, having conversations alone in her room & stating that people in room/on the ceiling are trying to harm her. Patient is difficult to redirect. PO Olanzapine given w/ no effect. Patient is impulsive and attempting to get OOB and leave, swinging arms at staff members. Attempted to give IM Haldol, patient swung arms and attempted to throw call-light and not allowing staff to come close. Patient is removing tele, notified MD Wei, tele d/c'd. Fall precautions in place, plan of care ongoing.
[2023-10-26] MEDS: HALOPERIDOL 5 MG/ML VIAL 2 MG IM (02:26)
[2023-10-26 02:40] VITALS: BP 141/70; PULSE 117; RESP 16; TEMP 36.4; O2SAT 96
--- NOTE | 2023-10-26 08:38 | PC.NURSE ---
Addendum entered by Marianne Hernandez R.N. 10/26/23 08:55: PCT (patient pet care technician) got patient dressed and ready for the morning. P.T. in note below was for Patient tech, not physical therapist. Patient just worked with physical therapy and she ambulated in the halls. Original Note: Patient is hallucinating and talking to people in her room that are not present. She is confused and not oriented. P.T. got patient dressed this morning and she did eat some breakfast. She is not swinging at staff but she does get agitated at times. She is washing up for the morning now.
[2023-10-26 09:40] VITALS: BP 120/61; PULSE 97; RESP 20; TEMP 37; O2SAT 97
--- NOTE | 2023-10-26 10:33 | DIET.CONS2 ---
Dietary Inpatient Consultation Note Admission Date: 10/24/2023 16:41 88 y F admitted for increased confusion and weakness. PMH Alzheimer's dementia. Nutrition screened due to low MNA score. Chart reviewed, pt currently confused/not oriented and hallucinating. No weight loss noted. Usual body weight: 54-55 kg. Average PO intake 75% Noted low BMI for age of 20.7. Ordered Ensure Original 1x/day to support adequate intake. Will continue to monitor PO intakes. Diet: 10/25/23 Breakfast General (Regular) Diet Diet Modifications: Nutrition Percent Meal Consumed 75% 10/25/23 18:00 Percent Meal Consumed 75% 10/25/23 13:01 Percent Meal Consumed 0% 10/25/23 10:51 Percent Meal Consumed 75% 10/24/23 18:00 Electronically Signed by: Jneny Valdez 10/26/23 10:33 Clinical Dietitian [address] [address]
--- NOTE | 2023-10-26 10:40 | PT.IIE ---
Surgical History (Last Updated 10/24/23 @ 17:44 by Spring Doshi MD) History of bilateral knee replacement Medical History (Last Updated 10/24/23 @ 17:40 by Spring Doshi MD) Acquired hypothyroidism ANA ROSA (acute kidney injury) Alzheimer's dementia Depression Hypertension Steroid-induced psychosis Physical Therapy Inpatient Evaluation/Re-Eval M1 PT/OT-IP Prior Functional Status Start: 10/25/23 09:23 Freq: NEEDED Status: Active Protocol: Document 10/26/23 08:40 MB (Rec: 10/26/23 10:40 MB [id number]) Medical Review Prior Functional Status Medical History Reviewed Yes Communication Unsure baseline diet and communication Mobility and Gait Unsure baseline mobility, pt has a rollator in the room, pt is unable to report Activities of Daily Living and IADL's Pt has son support and unsure how much he does for pt, pt is unable to report Social History Household Members none Living Arrangements Apartment/Condo Number of Floors (Floors) One Floor Number of Stairs To Enter/Railing? 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 Employment Status Retired Additional Social History Comment Pt cannot verbalize any home equipment M2 PT-IP Current Condition Start: 10/25/23 09:23 Freq: NEEDED Status: Active Protocol: Document 10/26/23 08:40 MB (Rec: 10/26/23 10:40 MB [id number]) Physical Therapy Current Condition Current Condition Evaluation Date 10/26/23 Treatment Diagnosis Fall, history of dementia M3 PT-IP Subjective Start: 10/25/23 09:23 Freq: NEEDED Status: Active Protocol: Document 10/26/23 08:40 MB (Rec: 10/26/23 10:40 MB [id number]) Subjective Physical Therapy Visit Type Type Initial Evaluation Visit Start Time 08:40 Visit Stop Time 08:57 Number of ASSISTANT CASE MANAGER Visits 0 Physical Therapy Visit Comments Patient Comments Pt cannot state, cannot verbalize in clear sentences M4 PT-IP Mobility and Gait Start: 10/25/23 09:23 Freq: NEEDED Status: Active Protocol: Document 10/26/23 08:40 MB (Rec: 10/26/23 10:40 MB [id number]) PT-Bed Mobility Assessment Sit to Supine Sit to Supine Standby Assistance,1 Person Assistance Scooting Scooting Up and Down in Bed Standby Assistance PT-Transfer Assessment Sit to and From Stand Sit to and from Stand Standby Assistance,Contact Guard Assistance,1 Person Assistance,Use of Upper Extremities Equipment Transfer Assistive Device Gait Belt,4 Wheeled Walker Orthotic/Prosthetic Devices or Brace: No Transfers Transfer Destination Bed,Chair Transfer Technique Ambulation Transfer Ability Level of Assist Standby Assistance,Contact Guard Assistance,1 Person Assistance Comments Mobility Comments Pt cannot follow commands and occ receives guiding tactile cues for mobility, where to go . Pt up at sink and dressed with COMPUTER SYSTEMS ENGINEER nearby upon PT arrival. COMPUTER SYSTEMS ENGINEER assists pt with her shoes. Pt asks PT to remove one of her shoes when she is ready to get back into bed. Gait Assessment Gait Gait Assistance Required: Standby Assistance,Contact Guard Assist Distance (Feet) 100 Able to Maintain Weight Bearing Status Yes During Gait Assistive Devices Assistive Device Gait Belt,4 Wheeled Walker Orthotic/Prosthetic Devices or Brace: No Gait Deviations General Gait Pattern Decreased Stride Length, Decreased Feet Clearance, Flexed Trunk Factors Limiting Gait Function Factors Limiting Gait Function Difficulty Following Directions,Incoordination,Poor Balance,Poor Safety Awareness Comments Gait Comments Pt does not follow commands and so PT provides very little VCs during treatment and PT tends to walk in front of patient and point to where to go. Pt with occ agitated verbalizations and it is not clear what she needs. When reaching steps, she refuses. Upon walking back to room, she sits on rollator in the middle of the hallway without locking it and sits on top of purse. PT pushes her back to the room. Gait with PT is 10' x1, 100'x1, 50'x1, 20'x1 with rollator and without rollator, CGA PT-Balance Assessment Sitting Balance and Reactions Static Sitting Balance Ability Good Dynamic Sitting Balance Ability Good Standing Balance and Reactions Static Standing Balance Ability Good Dynamic Standing Balance Ability Fair Device Used Rollator M5 PT-IP Objective Assessments Start: 10/25/23 09:23 Freq: NEEDED Status: Active Protocol: Document 10/26/23 08:40 MB (Rec: 10/26/23 10:40 MB [id number]) Orientation Orientation/Cognition Level of Alertness Confusional State Safety Awareness Decreased Safety Awareness Memory Description Short Term Impaired,[facility] Impaired Gross Range of Motion Upper Extremity ROM Assessment Within Functional Limits Lower Extremity ROM Assessment Within Functional Limits Strength Upper Extremity Strength Assessment Within Functional Limits Lower Extremity Strength Assessment Within Functional Limits M6 PT-IP Treatment Start: 10/25/23 09:23 Freq: NEEDED Status: Active Protocol: Document 10/26/23 08:40 MB (Rec: 10/26/23 10:40 MB [id number]) Physical Therapy Treatment Education Education Provided Safety M7 PT-IP Assessment and Plan Start: 10/25/23 09:23 Freq: NEEDED Status: Active Protocol: Document 10/26/23 08:40 MB (Rec: 10/26/23 10:40 MB [id number]) PT Summary Assessment and Plan Potential Rehabilitation Potential Poor Status of Condition at Evaluation Unstable Summary Impairments Cognition Progress Towards Goals Slow Progress - Other Assessment Summary Pt is an 88 y/o female that PT has been following along with since receiving order yesterday morning. PT has had trouble getting in to see pt d /t sedation, confusion and refusal and there is a window this morning when pt is up with COMPUTER SYSTEMS ENGINEER in the room and PT initiates evaluation. Pt requires guiding tactile cues for all mobility and does not understand verbal cues well. She is overall CGA for all mobility tasks with PT today including walking in hallway with her rollator. Pt likely presents with acute encephalopathy in the hospital in setting of her underlying dementia. She is unable to participate with skilled PT at this time. Recommend up in room with staff assistance of one. For d/c, pt will benefit from 24 hour superv and PT safety consult. It might be time for a discussion about MARLYS and will defer to MD and social work. Frequency of Treatment Frequency Of Treatment Discharge Recommendations To Nursing Amount of Assist Needed Standby Assistance,1 Person Assist Discharge Recommendations PT Discharge Recommendations Home with 24/7 Assist Available Other Discharge Recommendations Home with 24/7 assistance and HH PT safety consult vs [facility] Transportation Needs at Discharge Private Vehicle
[2023-10-26] MEDS: LORATADINE 10 MG TABLET PO (11:57)
[2023-10-26] MEDS: haloperidoL 5 MG TABLET 2.5 MG PO (11:57)
[2023-10-26] MEDS: VERAPAMIL 80 MG TABLET 40 MG PO (11:57)
[2023-10-26] MEDS: lisinopriL 20 MG TABLET 10 MG PO (11:57)
[2023-10-26] MEDS: FAMOTIDINE 20 MG TABLET PO (11:58)
[2023-10-26] MEDS: ASPIRIN EC 81 MG TABLET PO (11:58)
[2023-10-26] MEDS: ENOXAPARIN 40 MG/0.4 ML SYRINGE SUBCUT (11:58)
[2023-10-26 12:54] VITALS: RESP 16
--- NOTE | 2023-10-26 13:26 | PM.PN.1 ---
Subjective Subjective Interval history: She is seen today to follow-up her dementia, confusion and hallucinations. Overnight she pulled out her IV access. Is much more pleasant today but still seems to be hallucinating, seeing things and talking to herself. Exam Vital Signs (past 8 hours): - 10/26/23 09:40 10/26/23 12:54 Temperature 98.6 F Pulse Rate 97 H Respiratory Rate 20 16 Blood Pressure 120/61 Pulse Oximetry 97 Oxygen Flow Rate 0 Oxygen Delivery Method Room Air Oxygen Flow Rate 0 Narrative Exam Narrative: She is sleeping after a long night of restlessness so is not disturbed. No apparent distress. Heart is regular rate and rhythm without murmur Lungs are clear to auscultation bilaterally. Extremities have no ankle edema. Objective Labs 10/25/23 05:05 10/25/23 05:05 [facility] Medical History (Updated 10/24/23 @ 17:40 by Spring Doshi MD) Depression Acquired hypothyroidism Steroid-induced psychosis ANA ROSA (acute kidney injury) Alzheimer's dementia Hypertension Surgical History (Updated 10/24/23 @ 17:44 by Spring Doshi MD) History of bilateral knee replacement Social History household members: none Smoking Status: Former smoker alcohol intake: never Assessment & Plan Assessment & Plan narrative: This is an 88-year-old female with Alzheimer's dementia, hypertension, hypothyroidism and depression who was recently treated for a UTI with antibiotics that produced a hive reaction. She was then placed on prednisone and was not able to sleep for 2-3 nights with increasing hallucinations and confusion at home. She was admitted for stabilization. Alzheimer's dementia with acute delirium/encephalopathy of steroid treatment. -patient unable to sleep for 2-3 nights after beginning prednisone for urticaria. -acute delirium/encephalopathy and hallucinations reported. -admitted for work-up, clearing, stabilization and possible placement. -Ruled out recurrent UTI. Head CT negative for acute bleed. -Useing Zyprexa and Haldol sparingly to encourage return to normal sleep wake cycle Recent urinary tract infection -repeat UA is normal Acute kidney injury -creatinine has risen from 0.86 at baseline up to 1.63 and then back down to 0.98 now. -resolved with IV fluids Recent urticarial antibiotic response -Patient was prescribed macrobid per outpatient pharmacy review on 10/12/23. Hypothyroidism Continue levothyroxine Hypertension Continue lisinopril and verapamil Depression -holding escitalopram until mentation improves. Lovenox for DVT prevention Her son is her backup decision maker.
[2023-10-26] MEDS: QUETIAPINE 25 MG TABLET PO (15:11)
[2023-10-26 16:00] VITALS: RESP 16
--- NOTE | 2023-10-26 16:10 | CM.DPNOTE ---
DCP Note DOPE AND FABRIC WORKER reviewed EMR. Per RN, pt continues to hallucinate. Per provider, attempting different medication to reduce hallucinations. Could just be new baseline vs hospital delirium. Per UR, pt changed to INPT as of admission. Per PT, ambulating well with them. Rec home with assistance vs MARLYS, discharge from PT. DOPE AND FABRIC WORKER met with pt, son/GINA Mancilla, and MARIELENA Verdugo. Pt was tangential and occasionally said nonsensical/irrelevant things throughout conversation. Son/DIL report that in the past pt has refused to move in with them and are reporting they cannot take her home at this time. DOPE AND FABRIC WORKER reviewed different dcp options with them. Report interested in memory care respite stay while arranging half-way plan. Preference is [facility]. Family wants hospitalist to continue to attempt to reduce hallucinations through med changes. Family reported struggles in affording termite treater care payment- meeting with someone about it next week. Hopeful for LTC plan to be HALF-WAY placement pending payment details, hopeful respite stay in will give them enough time to come up with LTC plan. DOPE AND FABRIC WORKER spoke with Liza from [facility]. Have bed availability and RN could come do assessment likely tomorrow. DOPE AND FABRIC WORKER emailed her clinicals. DOPE AND FABRIC WORKER gave MARIELENA De Jesus's number to call for questions. Plan: anticipate dc to [facility] for respite stay while family continues to pursue LTC. Hopeful for global position system technician Tue and dc Tue if medically stable. Family will transport. CM team will follow closely. KALREY Horton
[2023-10-27] MEDS: VERAPAMIL 80 MG TABLET 40 MG PO ×2 (09:58→20:07)
[2023-10-27] MEDS: lisinopriL 20 MG TABLET 10 MG PO (09:59)
[2023-10-27] MEDS: FAMOTIDINE 20 MG TABLET PO (09:59)
[2023-10-27] MEDS: ENOXAPARIN 40 MG/0.4 ML SYRINGE SUBCUT (09:59)
[2023-10-27] MEDS: ASPIRIN EC 81 MG TABLET PO (09:59)
[2023-10-27 10:00] VITALS: BP 155/76; PULSE 114; RESP 16; TEMP 36.8
[2023-10-27] MEDS: LORATADINE 10 MG TABLET PO (10:02)
[2023-10-27] MEDS: LEVOTHYROXINE 50 MCG TABLET PO (10:02)
--- NOTE | 2023-10-27 11:49 | PM.PN.1 ---
Subjective Subjective Interval history: She is seen today to follow-up her dementia, confusion and hallucinations. She is much more alert today. Gave 25 mg seroquel yesterday, slept afterwards. No hallucinations this morning. Feels well. Will start 12.5 mg seroquel nightly. Exam Vital Signs (past 8 hours): - 10/27/23 07:00 10/27/23 10:00 Temperature 98.2 F Pulse Rate 114 H Respiratory Rate 16 Blood Pressure 155/76 H Oxygen Delivery Method Room Air Oxygen Delivery Method Room Air Oxygen Flow Rate 0 Narrative Exam Narrative: Awake, alert, oriented to name and hospital, no acute distress Heart is regular rate and rhythm without murmur Lungs are clear to auscultation bilaterally. Extremities have no ankle edema. Objective Labs 10/25/23 05:05 10/25/23 05:05 [facility] Medical History (Updated 10/24/23 @ 17:40 by Spring Doshi MD) Depression Acquired hypothyroidism Steroid-induced psychosis ANA ROSA (acute kidney injury) Alzheimer's dementia Hypertension Surgical History (Updated 10/24/23 @ 17:44 by Spring Doshi MD) History of bilateral knee replacement Social History household members: none Smoking Status: Former smoker alcohol intake: never Assessment & Plan Assessment & Plan narrative: This is an 88-year-old female with Alzheimer's dementia, hypertension, hypothyroidism and depression who was recently treated for a UTI with antibiotics that produced a hive reaction. She was then placed on prednisone and was not able to sleep for 2-3 nights with increasing hallucinations and confusion at home. She was admitted for stabilization. Alzheimer's dementia with acute delirium/encephalopathy of steroid treatment. -patient unable to sleep for 2-3 nights after beginning prednisone for urticaria. acute delirium/encephalopathy and hallucinations have now begun to improve today. -Ruled out recurrent UTI. Head CT negative for acute bleed. -Using Zyprexa and Haldol sparingly to encourage return to normal sleep wake cycle, however these were not very effective. Change to seroquel yesterday, marked improvement today. Will continue seroquel, 12.5 mg, at bedtime today. -will watch today, hopeful for no repeat hallucinations this afternoon and overnight, hopeful for discharge home tomorrow. Recent urinary tract infection -repeat UA is normal Acute kidney injury -creatinine has risen from 0.86 at baseline up to 1.63 and then back down to 0.98 now. -resolved with IV fluids Recent urticarial antibiotic response -Patient was prescribed macrobid per outpatient pharmacy review Hypothyroidism Continue levothyroxine Hypertension Continue lisinopril and verapamil Depression -holding escitalopram until mentation improves. Lovenox for DVT prevention Her son is her backup decision maker. Code: full Dispo: Home, hopeful for tomorrow if no continued hallucinations
--- NOTE | 2023-10-27 16:16 | CM.DPNOTE ---
DCP note Per hospitalist, would like to keep pt another day to monitor hallucinations. Dc tomorrow. SITE OPERATIONS MANAGER spoke with son/DIL multiple times throughout the day. Preference is now [facility] for memory care. They will continue to coordinate with [facility] regarding the financial details. SITE OPERATIONS MANAGER spoke with Nelson from [facility] multiple times throughout the day. SITE OPERATIONS MANAGER faxed ([phone], , ) and emailed ([email or web address] [email or web address] Nelson pt's clinicals multiple times throughout the day. They seem to have trouble receiving our faxes. Nelson seems to report no issue in accepting pt tomorrow. Plan: anticipate dc tomorrow to [facility]. CM team will follow closely KARLEY Horton
[2023-10-27 18:00] VITALS: BP 137/36; PULSE 98; RESP 16; TEMP 36.4; O2SAT 95
[2023-10-27 19:35] VITALS: BP 148/69; PULSE 108; RESP 16; TEMP 37.1; O2SAT 96
[2023-10-27] MEDS: QUETIAPINE 25 MG TABLET 12.5 MG PO (20:06)
[2023-10-27] MEDS: ATORVASTATIN 20 MG TABLET PO (20:06)
[2023-10-27 20:07] VITALS: BP 148/69; PULSE 108
--- NOTE | 2023-10-27 23:11 | PC.NURSE ---
Patient oriented to self, birthdate, month, year and place. She has some difficulty with finding right words but clearly states I have Alzheimer's. She is forgetful and needs frequency cueing and staff attention. Is [place] in bilateral ears but has only left hearing aid and relates that she could only afford one hearing aid. Breath sounds CTA with RA sat of 96%. HRR but tachy at 108 and BP elevated at 148/69. Denies nausea. BT present and is passing flatus. Reports she has no bowel/bladder control but per PERSONAL FINANCIAL PLANNER she has been continent. Is able to move herself in bed. Up to [facility] with 1 assist + rolling walker. Denies pain. Placed bilateral calf SCD's but only tolerated them for brief period of time and then requested they be removed. Fall risk score is high and bed/chair alarm in use.
[2023-10-28] VITALS: BP 121/69; PULSE 105; RESP 16; TEMP 36.4; O2SAT 96
[2023-10-28] MEDS: ACETAMINOPHEN 325 MG TABLET 650 MG PO (00:58)
[2023-10-28] MEDS: LEVOTHYROXINE 50 MCG TABLET PO (06:09)
[2023-10-28] MEDS: LORATADINE 10 MG TABLET PO (08:54)
[2023-10-28] MEDS: FAMOTIDINE 20 MG TABLET PO (08:54)
[2023-10-28] MEDS: lisinopriL 20 MG TABLET 10 MG PO (08:54)
[2023-10-28 08:55] VITALS: BP 172/87; PULSE 110
[2023-10-28] MEDS: ENOXAPARIN 40 MG/0.4 ML SYRINGE SUBCUT (08:55)
[2023-10-28] MEDS: ASPIRIN EC 81 MG TABLET PO (08:55)
[2023-10-28 08:57] VITALS: BP 172/87; PULSE 110
[2023-10-28] MEDS: VERAPAMIL 80 MG TABLET 40 MG PO (08:57)
--- NOTE | 2023-10-28 11:47 | CM.DPNOTE ---
Addendum entered by KARLEY Horton 10/28/23 13:57: AIRPORT GUIDE faxed signed dc sum and signed med list ([phone], , ) and emailed ([email or web address]) to [facility]. Placed in dc pwk for family to take hard copies as well. AIRPORT GUIDE met with DIL and pt in room. Agreeable to plan. reported to family [facility] aware they were coming this afternoon and were sent dc sum and signed med list. Son and DIL will take pt as soon as dc information is reviewed with RN. Deny other CM needs. SL Original Note: DCP Note AIRPORT GUIDE reviewed EMR. Per hospitalist in morning rounds, pt cleared to md today. AIRPORT GUIDE spoke with son/GINA Mancilla. In agreement with dcp for pt to go to [facility]. Will be here around lunch time to transport pt there with DIL. AIRPORT GUIDE spoke with Nelson from [facility]. Report clinicals from yesterday were sufficient- no RN bedside assessment needed. Report only needing dc summary and signed med list. No RN report needed. Need provider here to say discharge to [facility] and if want to order PT for pt that needs to be included in dc sum as well. AIRPORT GUIDE updated provider. AIRPORT GUIDE updated RN. AIRPORT GUIDE updated CUSTOMER SERVICE DRIVER. asked them to put together a dc packet for going to [facility]. AIRPORT GUIDE met with pt at bedside. Pt in agreement to go to [facility]. Appreciative this AIRPORT GUIDE told her the plan. Plan: dc to [facility] today around lunch time. AIRPORT GUIDE will fax dc sum/order/signed med list when available. CM team will follow closely. KARLEY Horton
--- NOTE | 2023-10-28 12:39 | P.DS_ITS ---
History of Present Illness History of Present Illness Date Patient Seen: 10/28/23 Time Patient Seen: 12:39 Chief complaint: Fall/hit head/ on thinners Narrative: Per admitting provider, This is an 88-year-old female admitted with increased confusion and weakness. She has Alzheimer's dementia, hypertension, hypothyroidism and depression and was recently treated for a UTI with antibiotics that produced a hive reaction. She was then placed on prednisone and has not been able to sleep for 2-3 nights with increasing hallucinations and confusion at home. She is admitted for stabilization. Discharge Providers Provider Date of admission: 10/24/23 16:41 Discharge Date: 10/28/23 Primary care physician: Marcial Arellano DO Consults: 10/24/23 17:38 Consult to Physical Therapy Evaluate & Treat Comment: Physician Instructions: Evaluate and Treat Discharge provider: Alex Mars DO Summary Hospital Course Discharge Diagnosis: Alzheimer's dementia with toxic encephalopathy 2/2 steroid treatment. Recent urinary tract infection, resolved, not present on admission. Acute kidney injury Recent urticarial antibiotic response Hypothyroidism Hypertension Depression Hospital Course: This is an 88-year-old female with Alzheimer's dementia, hypertension, hypothyroidism and depression who was recently treated for a UTI with macrobid that produced a hive reaction. She was then placed on prednisone and was not able to sleep for 2-3 nights with increasing hallucinations and confusion at home. UA was negative on admission. She was admitted for her toxic encephalopathy. She continued to have visual hallucinations, required multiple medications including haldol and attempted zyprexa without much effect. After a couple of days, resuming patient's home seroquel, she was able to sleep and had >24 hours with stable behavior without continued hallucinations and she improved back to her usual self. She did develop ANA ROSA that resolved with fluid administration, likely due to dehydration. Her other home medications were continued. Patient was discharged to memory care facility once stable and resolved hallucinations. Time Spent with Patient Time spent: Greater than 30 minutes Exam Vital Signs (past 8 hours): - 10/28/23 08:55 10/28/23 08:57 Pulse Rate 110 H 110 H Blood Pressure 172/87 H 172/87 H Oxygen Delivery Method Room Air Oxygen Flow Rate 0 Narrative Exam Narrative: Awake, alert, oriented to name and hospital, no acute distress Heart is regular rate and rhythm without murmur Lungs are clear to auscultation bilaterally. Extremities have no ankle edema. Objective Labs 10/25/23 05:05 10/25/23 05:05 [facility] Medical History (Updated 10/24/23 @ 17:40 by Spring Doshi MD) Depression Acquired hypothyroidism Steroid-induced psychosis ANA ROSA (acute kidney injury) Alzheimer's dementia Hypertension Surgical History (Updated 10/24/23 @ 17:44 by Spring Doshi MD) History of bilateral knee replacement Social History household members: none Smoking Status: Former smoker alcohol intake: never Discharge Plan Discharge Plan Patient Disposition: Released, Other Other facility: [facility], [facility] care Provider Discharge Comment: 88 F admitted for steroid induced delirium. Improved with time. Small dose of nightly seroquel held initially, but improved with this and should continue after discharge. Continue PT for continued recovery at [facility] Discharge orders & Medications Discharge Orders: Discharge (Order); Ordered 10/28/23 Ordered By: Alex Mars Prescriptions: Continued aspirin [Adult Low Dose Aspirin] 81 mg tablet,delayed release (DR/EC) 81 mg PO DAILY atorvastatin 20 mg tablet 20 mg PO DAILY Patient Comments: TAKE 1 TABLET BY MOUTH ONCE DAILY cholecalciferol (vitamin D3) 10 mcg (400 unit) tablet 10 mcg PO DAILY levothyroxine 50 mcg tablet 50 mcg PO DAILY Patient Comments: TAKE 1 TABLET BY MOUTH ONCE DAILY lisinopril 20 mg tablet 10 mg PO DAILY Patient Comments: TAKE 1/2 (ONE-HALF) TABLET BY MOUTH ONCE DAILY verapamil 120 mg tablet 120 mg PO DAILY Patient Comments: TAKE 1 TABLET BY MOUTH ONCE DAILY escitalopram oxalate 10 mg tablet 10 mg PO DAILY fexofenadine 60 mg tablet 90 mg PO BID famotidine 20 mg tablet 20 mg PO BID quetiapine 25 mg tablet 25 mg PO QPM Discontinued prednisone 20 mg tablet 20 mg PO DAILY Follow up/Referrals: Marcial Arellano DO [Primary Care Provider] - Discharge Health Status Precautions: [place] Diet/Activity/Treatments Diet: Diet as Tolerated Liquid consistency: Normal/Thin Food texture: Regular Activity: As tolerated no restrictions. Special Rehabilitation Services Reason for rehabilitation: Recovery r/t decondition Rehab type: Physical therapy Visit Report/Discharge Packet Instructions: DI for Urinary Tract Infection (UTI), DI for Alzheimer Disease, Alzheimer Disease: Tips for Caregivers Stand Alone Forms: Patient Portal/API, Stroke Signs & Symptoms Discharge Data Primary Care Provider: Marcial Arellano
== END 2023-10-28 14:05 | DRG 56 ==
LOC: ED 16:15 → AC 10-25 08:03
PROVIDERS: Admitting Provider Family Medicine; Emergency Provider Emergency Medicine; Family Provider Internal Medicine; PCP Family Medicine; Referring Provider Emergency Medicine; Visit Provider Family Medicine
DX: G30.9 Alzheimer's disease, unspecified (principal); G92.8 Other toxic encephalopathy; N17.9 Acute kidney failure, unspecified; F02.80 Dementia in other diseases classified elsewhere, unspecified severity, without behavioral disturbance, psychotic disturbance, mood disturbance, and anxiety; T38.0X5A Adverse effect of glucocorticoids and synthetic analogues, initial encounter; E03.9 Hypothyroidism, unspecified; I10 Essential (primary) hypertension; F32.A Depression, unspecified; Z87.891 Personal history of nicotine dependence; Z87.440 Personal history of urinary (tract) infections
CPT/HCPCS: 36415; 51701; 70450; 72125; 80053; 81001; 83690; 85025; 85610; 93005; 97161; 99284; A9270; J1630; J1650; J3360